=== PATIENT | female | born 1955 | race Caucasian/White ===

== ENCOUNTER 2017-04-24 14:06 | Inpatient (IN) | payer MEDICARE, OTHER ==
[~2017-04-24] VITALS: Ht 154.9 cm; Wt 108.5 kg
[~2017-04-24 14:06] MED LIST: ACET325T21 PO; ACET325T9 PO; ATORVASTATIN CA80 MG PO; BUSP5TAB PO; CARV6.252 PO; CHOL100014 PO; CLON0.5T3 PO; DIVA125C PO; DOCU-109 PO; EXEN2VIA SQ; FURO20TA3 PO; INSU100I17 SQ; INSU100V13 SQ; IPRA3AMP NEB; LEVO75TA5 PO; LIPA1CAP12 PO; LIPA1CAP4 PO; LORA0.5T PO; MAG DELAY64 MG PO; MAG30ORA2 PO; MAG355OR17 PO; MAGN2400 PO; MAGN400T3 PO; MELO15TA23 PO; METF500T4 PO; METH29OI TP; MIRT30TA3 PO; MONT10TA9 PO; NYST1POW2 TP; OMEG-33 PO; OMEP20CA9 PO; PANT40TA3 PO; PHEN100C PO; PHEN100C4 PO; PHEN50TA3 PO; POTA10TA31 PO; PREG75CA PO; QUET25TA5 PO; RISP0.5T3 PO; RISP1TAB43 PO; RISP4TAB2 PO; TIOT4MIS5 IH; UMEC1DIS IH; VENL150T PO; VENL75CA PO; VENL75TA PO
--- NOTE | 2017-04-24 14:30 | EKG ---
[address] [address] Test Date: 2017-04-24 Test Time: 14:28:51 Pat Name: YAMILET CAR Department: Room: Gender: F Manager Of Security: : [id number] Requested By: STEPHANIE REINOSO Order Number: [id number] Reading MD: Measurements Intervals [place] Rate: 100 P: 47 SD: 152 QRS: -38 QRSD: 80 T: 53 QT: 334 QTc: 434 Interpretive Statements SINUS RHYTHM ABNORMAL LEFT AXIS DEVIATION R-S TRANSITION ZONE IN V LEADS DISPLACED TO THE LEFT RI6.01 Unconfirmed report No previous ECG available for comparison
[2017-04-24 14:58] LABS: BASO # 0.1 x10^3/uL (0.0-0.2); BASO % 1 % (0-3); EOS # 0.1 x10^3/uL (0.0-0.7); EOS % 2 % (0-3); HEMATOCRIT 41.4 % (36.0-47.0); HEMOGLOBIN 13.7 g/dL (12.0-15.5); LYMPH # 3.2 x10^3/uL (1.0-4.8); LYMPH % 39 % (24-48); MEAN CORPUSCULAR HEMOGLOBIN 31 pg (25-35); MEAN CORPUSCULAR HGB CONC 33 g/dL (31-37); MEAN CORPUSCULAR VOLUME 94 fL (79-100); MONO # 0.7 x10^3/uL (0.0-1.1); MONO % 9 % (0-9); NEUT # 4.1 x10^3uL (1.8-7.7); NEUT % 50 % (31-73); PLATELET COUNT 259 x10^3/uL (140-400); RED BLOOD COUNT 4.39 x10^6/uL (3.50-5.40); RED CELL DISTRIBUTION WIDTH 14.2 % (11.5-14.5); WHITE BLOOD COUNT 8.2 x10^3/uL (4.0-11.0)
[2017-04-24 15:04] LABS: BARBITURATES NEG (NEG); BENZODIAZEPINES NEG (NEG); CANNABINOIDS NEG (NEG); COCAINE NEG (NEG); METHADONE NEG (NEG); OPIATES NEG (NEG); PHENCYCLIDINE NEG (NEG)
[2017-04-24 15:07] LABS: ALBUMIN 3.2 g/dL (3.4-5.0); ALBUMIN/GLOBULIN RATIO 0.8 (1.0-1.7); CALCIUM 8.8 mg/dL (8.5-10.1); CREATININE 0.9 mg/dL (0.6-1.0); GFR 63.4; MAGNESIUM 1.6 mg/dL (1.8-2.4); POTASSIUM 4.5 mmol/L (3.5-5.1); TOTAL BILIRUBIN 0.1 mg/dL (0.2-1.0); TOTAL PROTEIN 7.2 g/dL (6.4-8.2)
[2017-04-24 15:07] LABS: AMPHETAMINE/METHAMPHETAMINE NEG (NEG)
[2017-04-24 15:39] LABS: BILIRUBIN,URINE NEG (NEG); CLARITY,URINE CLEAR; COLOR,URINE YELLOW; GLUCOSE,URINE NEG (NEG)
[2017-04-24 15:40] LABS: BACTERIA,URINE FEW /HPF (0-FEW); HYALINE CASTS, URINE OCC /HPF; NITRITE,URINE NEG (NEG); RBC,URINE 0 /HPF (0-2); SQUAMOUS EPITHELIAL CELL,UR OCC /LPF; UROBILINOGEN,URINE 0.2 mg/dL (0.2 mg/dL)
[2017-04-24] MEDS ORDERED: clonazePAM 1 MG TABLET PO ONE (16:30)
[2017-04-24] MEDS ORDERED: IV NORMAL SALINE 1,000ML 1,000 ML IV SCH (16:37)
[2017-04-24] MEDS ORDERED: fentaNYL PF 100 MCG/2 ML VIAL IV PRN ×2 (16:45)
[2017-04-24] MEDS ORDERED: ONDANSETRON PF 4 MG/2 ML VIAL. IV PRN (16:45)
[2017-04-24] MEDS ORDERED: ACETAMINOPHEN 325 MG TABLET PO PRN (16:45)
--- NOTE | 2017-04-24 16:48 | PHYS DOC ---
Past History Past Medical History: Arthritis, Bipolar, Diabetes, Hypertension, Other Past Surgical History: Cholecystectomy, , Other Alcohol Use: None Drug Use: None Adult General Chief Complaint Chief Complaint: PSYCH EVALUATION HPI HPI Patient is a 61 year old female who presents with complaint of suicidal ideation. The patient states that she has been hearing voices that have been commanding her to cut herself. Patient has had history of similar symptoms and has been admitted at the behavioral unit here at [facility]. The patient denies any somatic symptoms at this time and has not acted on the voices at this time. Patient requested to come to [facility] as she was originally scheduled to be transferred to [facility]. Patient states she did not want to go there because I do not have a psychiatric gross. Patient is requesting help as the voices in her head are causing her significant concern. Review of Systems Review of Systems Constitutional: Denies fever or chills [] Eyes: Denies change in visual acuity, redness, or eye pain [] HENT: Denies nasal congestion or sore throat [] Respiratory: Denies cough or shortness of breath [] Cardiovascular: Denies chest pain or edema [] GI: Denies abdominal pain, nausea, vomiting, bloody stools or diarrhea [] : Denies dysuria or hematuria [] Musculoskeletal: Denies back pain or joint pain [] Integument: Denies rash or skin lesions [] Neurologic: Denies headache, focal weakness or sensory changes [] Current Medications Current Medications Current Medications Medications (Trade) Dose Ordered Sig/Micah Start Time Stop Time Status Last Admin Dose Admin Clonazepam (KlonoPIN) 0.25 mg 1X ONCE 04/24/17 16:30 04/24/17 16:31 DC 04/24/17 16:26 1 MG Allergies Allergies Allergies Coded Allergies Type Severity Reaction Last Updated Verified codeine Allergy Intermediate Rash 10/18/15 Yes Physical Exam Physical Exam Constitutional: Alert, afebrile, no acute distress. [] HENT: Normocephalic, atraumatic, bilateral external ears normal, oropharynx moist, no oral exudates, nose normal. [] Eyes: PERRLA, EOMI, conjunctiva normal, no discharge. [] Neck: Normal range of motion, no tenderness, supple, no stridor. [] Cardiovascular:Heart rate regular rhythm, no murmur [] Lungs & Thorax: Bilateral breath sounds clear to auscultation [] Abdomen: Bowel sounds normal, soft, no tenderness, no masses, no pulsatile masses. [] Skin: Warm, dry, no erythema, no rash. [] Back: No tenderness, no CVA tenderness. [] Extremities: Walking boot on right lower extremity, no cyanosis, no clubbing, no edema. [] Neurologic: Alert and oriented X 3, normal motor function, normal sensory function, no focal deficits noted. [] Psychologic: Auditory hallucinations present, Affect normal, judgement normal, mood normal. [] Current Patient Data Vital Signs Vital Signs Date Time Temp Pulse Resp B/P (MAP) Pulse Ox O2 Delivery O2 Flow Rate FiO2 04/24/17 15:59 91 20 120/81 (94) 95 Room Air 04/24/17 14:06 98.7 Lab Results Laboratory Tests Test 04/24/17 14:15 04/24/17 14:24 Urine Collection Type Unknown Urine Color Yellow Urine Clarity Clear Urine pH 5.5 Urine Specific [place] 1.025 Urine Protein 30 mg/dl (NEG-TRACE) Urine Glucose (UA) Neg mg/dL (NEG) Urine Ketones (Stick) 40 mg/dL (NEG) Urine Blood Neg (NEG) Urine Nitrite Neg (NEG) Urine Bilirubin Neg (NEG) Urine Urobilinogen Dipstick 0.2 mg/dL (0.2 mg/dL) Urine Leukocyte Esterase Trace (NEG) Urine RBC 0 /HPF (0-2) Urine WBC 5-10 /HPF (0-4) Urine Squamous Epithelial Cells Occ /LPF Urine Bacteria Few /HPF (0-FEW) Urine Hyaline Casts Occ /HPF Urine Mucus Slight /LPF Urine Opiates Screen Neg (NEG) Urine Methadone Screen Neg (NEG) Urine Barbiturates Neg (NEG) Urine Phencyclidine Screen Neg (NEG) Urine Amphetamine/Methamphetamine Neg (NEG) Urine Benzodiazepines Screen Neg (NEG) Urine Cocaine Screen Neg (NEG) Urine Cannabinoids Screen Neg (NEG) Urine Ethyl Alcohol Neg (NEG) White Blood Count 8.2 x10^3/uL (4.0-11.0) Red Blood Count 4.39 x10^6/uL (3.50-5.40) Hemoglobin 13.7 g/dL (12.0-15.5) Hematocrit 41.4 % (36.0-47.0) Mean Corpuscular Volume 94 fL (79-100) Mean Corpuscular Hemoglobin 31 pg (25-35) Mean Corpuscular Hemoglobin Concent 33 g/dL (31-37) Red Cell Distribution Width 14.2 % (11.5-14.5) Platelet Count 259 x10^3/uL (140-400) Neutrophils (%) (Auto) 50 % (31-73) Lymphocytes (%) (Auto) 39 % (24-48) Monocytes (%) (Auto) 9 % (0-9) Eosinophils (%) (Auto) 2 % (0-3) Basophils (%) (Auto) 1 % (0-3) Neutrophils # (Auto) 4.1 x10^3uL (1.8-7.7) Lymphocytes # (Auto) 3.2 x10^3/uL (1.0-4.8) Monocytes # (Auto) 0.7 x10^3/uL (0.0-1.1) Eosinophils # (Auto) 0.1 x10^3/uL (0.0-0.7) Basophils # (Auto) 0.1 x10^3/uL (0.0-0.2) Sodium Level 138 mmol/L (136-145) Potassium Level 4.5 mmol/L (3.5-5.1) Chloride Level 102 mmol/L (98-107) Carbon Dioxide Level 26 mmol/L (21-32) Anion Gap 10 (6-14) Blood Urea Nitrogen 14 mg/dL (7-20) Creatinine 0.9 mg/dL (0.6-1.0) Estimated GFR (Cockcroft-Gault) 63.4 BUN/Creatinine Ratio 16 (6-20) Glucose Level 226 mg/dL (70-99) H Calcium Level 8.8 mg/dL (8.5-10.1) Magnesium Level 1.6 mg/dL (1.8-2.4) L Total Bilirubin 0.1 mg/dL (0.2-1.0) L Aspartate Amino Transferase (AST) 8 U/L (15-37) L Alanine Aminotransferase (ALT) 18 U/L (14-59) Alkaline Phosphatase 67 U/L (46-116) Total Protein 7.2 g/dL (6.4-8.2) Albumin 3.2 g/dL (3.4-5.0) L Albumin/Globulin Ratio 0.8 (1.0-1.7) L EKG EKG Interpreted by me: Heart rate 100, sinus rhythm, normal intervals, left axis deviation, no acute ST/T-wave abnormalities present [] Radiology/Procedures Radiology/Procedures Not performed [] Course & Med Decision Making Course & Med Decision Making Pertinent Labs and Imaging studies reviewed. (See chart for details) Patient acute distress. Patient's lab testing shows no acute severe distortion of her baseline lab work. The patient was accepted for inpatient psychiatric treatment at [facility]. Dragon Disclaimer Dragon Disclaimer This chart was dictated in whole or in part using Voice Recognition software in a busy, high-work load, and often noisy Emergency Department environment. It may contain unintended and wholly unrecognized errors or omissions. Departure Departure: Impression: Primary Impression: Medical clearance for psychiatric admission Additional Impressions: Auditory hallucinations Suicidal ideation Type 2 diabetes mellitus Disposition: ADMITTED INPATIENT Admitting Physician: Other Condition: STABLE Referrals: YADIRA PALMER MD (PCP) Problem Qualifiers Additional Impressions: Type 2 diabetes mellitus Diabetes mellitus complication status: without complication Diabetes mellitus prison insulin use: with prison use Qualified Codes: E11.9 - Type 2 diabetes mellitus without complications; Z79.4 - alf (current) use of insulin STEPHANIE REINOSO MD Apr 24, 2017 16:48
[2017-04-24] MEDS ORDERED: clonazePAM 0.5 MG TABLET PO PRN (17:15)
[2017-04-24] MEDS ORDERED: LORazepam 0.5 MG TABLET PO PRN (17:15)
[2017-04-24] MEDS ORDERED: LACT1CAP6 PO (17:36)
[2017-04-24] MEDS ORDERED: CALC625T PO (17:36)
[2017-04-24] MEDS ORDERED: INSU100V13 SQ ×2 (17:36)
[2017-04-24] MEDS ORDERED: IPRA4AER INH (17:36)
[2017-04-24] MEDS ORDERED: VENL75CA PO (17:36)
[2017-04-24] MEDS ORDERED: LOPE2CAP88 PO (17:36)
[2017-04-24] MEDS ORDERED: GLIM1TAB PO (17:36)
[2017-04-24] MEDS ORDERED: CINN500C2 PO (17:36)
[2017-04-24] MEDS ORDERED: CLON0.5T3 PO (17:36)
[2017-04-24] MEDS ORDERED: ENOX40DI SQ (17:36)
[2017-04-24] MEDS ORDERED: GUAI600T47 PO (17:36)
[2017-04-24] MEDS ORDERED: POLY17PO5 PO (17:36)
[2017-04-24] MEDS ORDERED: methylPREDNISolone SOD SUCC PF 125 MG/2 ML VIAL. IV SCH (18:00)
[2017-04-24 18:04] VITALS: BP 150/89
[2017-04-24] MEDS ORDERED: INSULIN ASPART 300 UNITS/3 ML INSULN.PEN SQ ONE (19:45)
[2017-04-24] MEDS ORDERED: IPRATRPIUM/ALBUTEROL 0.5/2.5MG 3 ML NEBU. NEB SCH (20:00)
[2017-04-24] MEDS: DIVALPROEX 125 MG CAP.SPRINK PO SCH (20:06)
[2017-04-24] MEDS: clonazePAM 0.5 MG TABLET PO SCH (20:07)
[2017-04-24] MEDS: MIRTAZAPINE 15 MG TABLET PO SCH (20:08)
[2017-04-24] MEDS: busPIRone 5 MG TABLET. PO SCH (20:08)
[2017-04-24] MEDS: risperiDONE 0.5 MG TABLET. PO SCH (20:08)
[2017-04-24] MEDS: risperiDONE 2 MG TABLET. PO SCH (20:09)
[2017-04-24] MEDS: INSULIN DETEMIR 300 UNITS/3 ML INSULN.PEN. SQ SCH (21:30)
[2017-04-24 21:38] LABS: PHENY 1.5 mcg/mL (10.0-20.0)
[2017-04-24 22:10] LABS: VAL ACID 22 mcg/mL (50-100)
[2017-04-25] MEDS: ENOXAPARIN 40 MG/0.4 ML DISP.SYRIN. SQ SCH (05:36)
[2017-04-25 06:03] VITALS: BP 116/75
[2017-04-25] MEDS: busPIRone 5 MG TABLET. PO SCH ×3 (08:16→19:42)
[2017-04-25] MEDS: DIVALPROEX 125 MG CAP.SPRINK PO SCH ×2 (08:16→19:42)
[2017-04-25] MEDS: INSULIN ASPART 300 UNITS/3 ML INSULN.PEN SQ SCH ×3 (08:21→17:33)
[2017-04-25] MEDS ORDERED: VENLAFAXINE XR 37.5 MG CAP.ER.24H. PO SCH (09:00)
[2017-04-25 10:41] LABS: THYROID STIM HORMONE (TSH) 2.302 uIU/mL (0.358-3.740)
[2017-04-25] MEDS ORDERED: POLYETHYLENE GLYCOL 3350 17 GM PACKET. PO PRN (12:15)
[2017-04-25] MEDS ORDERED: DOCUSATE SODIUM 100 MG CAPSULE PO PRN (12:15)
[2017-04-25] MEDS ORDERED: NON FORMULARY ITEM (Ipratropium/Albuterol Sulfate (Combivent Respimat Inhal) 2 PUFF) INH PRN (12:15)
[2017-04-25] MEDS ORDERED: LOPERAMIDE 2 MG CAPSULE PO PRN (12:15)
[2017-04-25] MEDS: INSULIN DETEMIR 300 UNITS/3 ML INSULN.PEN. SQ SCH ×2 (12:15→20:37)
[2017-04-25] MEDS ORDERED: MAGNESIUM HYDROXIDE 2,400 MG/30 ML ORAL.SUSP. PO PRN (12:30)
[2017-04-25] MEDS ORDERED: IPRATRPIUM/ALBUTEROL 0.5/2.5MG 3 ML NEBU. NEB PRN (12:30)
[2017-04-25] MEDS ORDERED: MAG HYDROX/AL HYDROX/SIMETH 30 ML ORAL.SUSP PO PRN (12:30)
--- NOTE | 2017-04-25 14:24 | PDOC1 ---
History of Present Illness Reason for Visit: Behaviors History of Present Illness Pt sent to [facility] for eval in the SB unit due to behaviors. She resides at a group home in [place]. Pt states that a few days ago she started hearing voices and they were telling her to kill herself. She says they were telling her to take scissors and cut her wrists. She says she is still hearing the voices. She has no other complaints. Specifically denies SOA, chest pain, abd pain, diarrhea, fever, headache, dizziness, etc. Chief Complaint: PSYCH EVALUATION Allergies: Coded Allergies: codeine (Verified Allergy, Intermediate, Rash, 10/18/15) Past Medical History Cardiac: HTN, hyperipidemia [employer]: Seizure Psych: Anxiety, Bipolar Endocrine: Diabetes, Hypothyroidism, Other (Pancreatic insufficiency) Past Surgical History: Cholecystectomy, Hernia Repair Family History: DM Past Social History Smoke: No Alcohol: none Drugs: None Lives: Intermediate Review of Systems Review Of Systems Fourteen system , review of systems has been reviewed. See HPI for pertinent positives and negative responses, other mcmillan all other systems are negative, non pertinent or non contributory Allergies: Coded Allergies: codeine (Verified Allergy, Intermediate, Rash, 10/18/15) Medications Current Medications Clonazepam (KlonoPIN) 0.25 mg 1X ONCE PO Last administered on 04/24/17t 16:26 ; Start 04/24/17 at 16:30; Stop 04/24/17 at 16:31; Status DC Ondansetron HCl (Zofran) 4 mg PRN Q4HRS PRN IV NAUSEA/VOMITING; Start 04/24/17 at 16:45; Stop 04/24/17 at 17:04; Status DC Fentanyl Citrate (Fentanyl 2ml Vial) 50 mcg PRN Q1HR PRN IV PAIN; Start at 16:45; Stop 04/24/17 at 17:04; Status DC Fentanyl Citrate (Fentanyl 2ml Vial) 50 mcg PRN Q2HR PRN IV PAIN; Start at 16:45; Stop 04/25/17 at 16:44; Status UNV Sodium Chloride 1,000 ml @ 100 mls/hr Q10H IV ; Start 04/24/17 at 16:37; Stop 04/24/17 at 17:04; Status DC Acetaminophen (Tylenol) 650 mg PRN Q4HRS PRN PO FEVER; Start 04/24/17 at 16:45 ; Stop 04/24/17 at 17:04; Status DC Albuterol/ Ipratropium (Duoneb) 3 ml RTQID NEB ; Start 04/24/17 at 20:00; Stop 04/24/17 at 20:00; Status DC Methylprednisolone Sodium Succinate (SOLU-Medrol 125MG VIAL) 60 mg Q6HRS IV ; Start 04/24/17 at 18:00; Stop 04/24/17 at 18:00; Status DC Buspirone HCl (Buspar) 5 mg TID PO Last administered on 04/25/17 12:57; Start 04/24/17 at 21:00 Clonazepam (KlonoPIN) 0.25 mg PRN Q6HRS PRN PO ANXIETY; Start 04/24/17 at 17:15 Clonazepam (KlonoPIN) 0.125 mg HS PO Last administered on 04/24/17 20:07; Start 04/24/17 at 21:00 Divalproex Sodium (Depakote Sprinkles) 375 mg BID PO Last administered on 08:16; Start 04/24/17 at 21:00 Lorazepam (Ativan) 0.5 mg PRN Q2HR PRN PO ANXIETY / AGITATION Last administered on 04/25/17 08:39; Start 04/24/17 at 17:15 Mirtazapine (Remeron) 15 mg QHS PO Last administered on 04/24/17 20:08; Start 04/24/17 at 21:00 Risperidone (RisperDAL) 0.5 mg HS PO Last administered on 04/24/17 20:08; Start 04/24/17 at 21:00 Venlafaxine HCl (Effexor Xr) 37.5 mg BID PO Last administered on 04/25/17 08: 16; Start 04/25/17 at 09:00 Enoxaparin Sodium (Lovenox) 40 mg DAILY06 SQ Last administered on 04/25/17 05: 36; Start 04/25/17 at 06:00 Risperidone (RisperDAL) 4 mg HS PO Last administered on 04/24/17 20:09; Start 04/24/17 at 21:00 Insulin Aspart (NovoLOG) 10 units TIDWMEALS SQ Last administered on 04/25/17 12:13; Start 04/25/17 at 08:00 Insulin Detemir (Levemir) 10 units DAILYWLUN SQ Last administered on 04/25/17 12:15; Start 04/25/17 at 12:00 Insulin Detemir (Levemir) 35 units QHS SQ Last administered on 04/24/17 21:30 ; Start 04/24/17 at 21:00 Insulin Aspart (NovoLOG) 5 units 1X ONCE SQ Last administered on 04/24/17 21: 29; Start 04/24/17 at 19:45; Stop 04/24/17 at 19:46; Status DC Acetaminophen (Tylenol) 650 mg PRN Q4HRS PRN PO PAIN / TEMP; Start 04/25/17 at 12:15 Calcium Polycarbophil (Fibercon) 1,250 mg DAILY PO ; Start 04/26/17 at 09:00 Docusate Sodium (Colace) 100 mg PRN DAILY PRN PO CONSTIPATION; Start 04/25/17 at 12:15 Enoxaparin Sodium (Lovenox) 40 mg DAILY06 SQ ; Start 04/26/17 at 06:00; Status Cancel Guaifenesin (Mucinex Er) 600 mg PRN Q8HRS PRN PO COUGH; Start 04/25/17 at 12:15 Levothyroxine Sodium (Synthroid) 75 mcg DAILY06 PO ; Start 04/26/17 at 06:00 Loperamide HCl (Imodium) 2 mg QIDPRN PRN PO DIARRHEA; Start 04/25/17 at 12:15 Magnesium Oxide (Magnesium Oxide) 400 mg TIDWMEALS PO ; Start 04/25/17 at 17:00 Metformin HCl (Glucophage) 1,000 mg BIDWMEALS PO ; Start 04/25/17 at 17:00 Phenytoin Sodium (Dilantin) 200 mg QHS PO ; Start 04/25/17 at 21:00; Status UNV Polyethylene Glycol (miraLAX) 17 gm PRN DAILY PRN PO CONSTIPATION; Start at 12:15 Potassium Chloride (Klor-Con) 10 meq 3X/WEEK PO ; Start 04/27/17 at 09:00 Pregabalin (Lyrica) 75 mg QHS PO ; Start 04/25/17 at 21:00 Atorvastatin Calcium (Lipitor) 80 mg QHS PO ; Start 04/25/17 at 21:00 Vitamin D (Vitamin D3) 2,000 unit DAILY PO ; Start 04/26/17 at 09:00 Non-Formulary Medication 2 puff PRN Q4HRS PRN INH SHORTNESS OF BREATH; Start at 12:15; Status UNV Lactobacillus Acidophilus (Bacid, Lisy-Bid) 1 tab DAILY PO ; Start 04/26/17 at 09:00 Al Hydroxide/Mg Hydroxide (Mylanta Plus Xs) 15 ml PRN AFTMEALHC PRN PO DYSPEPSIA; Start 04/25/17 at 12:30 Magnesium Hydroxide (Milk Of Magnesia) 2,400 mg PRN QHS PRN PO CONSTIPATION; Start 04/25/17 at 12:30 Phenytoin Sodium (Dilantin) 200 mg QHS PO ; Start 04/25/17 at 21:00 Levothyroxine Sodium (Synthroid) 75 mcg 1X ONCE PO ; Start 04/25/17 at 16:00; Stop 04/25/17 at 16:01 Albuterol/ Ipratropium (Duoneb) 3 ml PRN Q4HRS PRN NEB SHORTNESS OF BREATH; Start 04/25/17 at 12:30 Active Scripts Active Reported Miralax (Polyethylene Glycol 3350) 17 Gm Powd.pack 17 Gm PO PRN DAILY PRN Combivent Respimat Inhal (Ipratropium/Albuterol Sulfate) 4 Gm Aer.w.adap 2 Puff INH PRN Q4HRS PRN Mucinex (Guaifenesin) 600 Mg Tablet.er 600 Mg PO PRN Q8HRS PRN Imodium A-D (Loperamide HCl) 2 Mg Capsule 2 Mg PO PRN PRN Effexor Xr (Venlafaxine Hcl) 75 Mg Cap.er.24h 75 Mg PO DAILY Amaryl (Glimepiride) 1 Mg Tablet 1 Mg PO DAILY Cinnamon (Cinnamon Bark) 500 Mg Capsule 1,000 Mg PO QIDACHS Fibercon (Calcium Polycarbophil) 625 Mg Tablet 1,250 Mg PO DAILY Clonazepam 0.5 Mg Tablet 0.25 Tab PO HS Probiotic (Lactobacillus Acidophilus) 1 Each Capsule 1 Each PO DAILY Lovenox (Enoxaparin Sodium) 40 Mg/0.4 Ml Disp.syrin 40 Mg SQ DAILY06 Levemir (Insulin Detemir) 100 Unit/1 Ml Vial 35 Unit SQ HS Levemir (Insulin Detemir) 100 Unit/1 Ml Vial 10 Unit SQ DAILYWLUN Magnesium Oxide 400 Mg Tablet 400 Mg PO TIDWMEALS Advanced Antacid Liquid (Mag Hydrox/Al Hydrox/Simeth) 355 Ml Oral.susp 15 Ml PO PRN AFTMEALHC PRN Lorazepam 0.5 Mg Tablet 0.5 Mg PO PRN Q2HR PRN Colace (Docusate Sodium) 100 Mg Capsule 100 Mg PO PRN DAILY PRN Depakote Sprinkle (Divalproex Sodium) 125 Mg Cap.sprink 375 Mg PO BID Risperidone 0.5 Mg Tablet 4.5 Mg PO HS give with 4 mg dose to make 4.5 mg dose Novolog Flexpen (Insulin Aspart) 100 Unit/1 Ml Insuln.pen 10 Unit SQ TIDWMEALS Sliding Scale: Blood Glucose: < 70 follow Hypoglycemia protocol 70-150 = 0 units if Eating, 0 Units if not eating 151-200 = 2 Units if Eating, 0 Units if not eating 201-250 = 3 Units if Eating, 0 Units if not eating 251-300 = 4 Units if Eating, 2 Units if not eating 301-350 = 5 Units if eating, 3 Units if not eating > or = to 351 Call provider for additional orders Buspirone Hcl 5 Mg Tablet 5 Mg PO TID Do not administer with grapefruit juice Phenytoin 50 Mg Tab.chew 200 Mg PO QHS Administer with HS dose of 300mg for total HS dose of 350mg Milk Of Magnesia (Magnesium Hydroxide) 2,400 Mg/10 Ml Oral.susp 2,400 Mg PO PRN QHS PRN Tylenol (Acetaminophen) 325 Mg Tablet 650 Mg PO PRN Q4HRS PRN Max Acetaminophen dose is 4000mg in 24 hours from all sources for adults Vitamin D3 (Cholecalciferol (Vitamin D3)) 1,000 Unit Capsule 2,000 Unit PO DAILY Levothyroxine Sodium 75 Mcg Tablet 75 Mcg PO DAILY06 Administer on an empty stomach: 1 hour before or 2 hours after a meal Mirtazapine 30 Mg Tablet 15 Mg PO QHS Clonazepam 0.5 Mg Tablet 0.25 Mg PO PRN Q6HRS PRN Lyrica (Pregabalin) 75 Mg Capsule 75 Mg PO QHS Metformin Hcl 500 Mg Tablet 1,000 Mg PO BIDWMEALS Give with meals Potassium Chloride 10 Meq Tab.er.prt 10 Meq PO 3X/WEEK On Thursday and Thursday Atorvastatin Calcium 80 Mg Tablet 80 Mg PO QHS [place] 3 1,000 Mg Softgel ([place]-3 Fatty Acids/Fish Oil) 1 Each Capsule 1,000 Mg PO DAILY Exam Vital Signs Vital Signs Date Time Temp Pulse Resp B/P (MAP) Pulse Ox O2 Delivery O2 Flow Rate FiO2 04/25/17 06:03 97.9 77 20 116/75 (89) 97 04/24/17 18:04 Room Air General Appearance: Alert, Oriented X3, Cooperative, No acute distress HEENT: Atraumatic, PERRLA, EOMI, Mucous membr. moist/pink, Other (Neck w/ normal ROM, no JVD, no LAD, no thyromegaly) Respiratory: Clear to auscultation, Normal air movement Heart: Regular rate, Normal S1, Normal S2, No murmurs Abdominal: Normal bowel sounds, Soft, No tenderness, No hepatospenomegaly, No masses Extremities: No edema, Normal pulses, No tenderness/swelling Skin: No rashes, No breakdown Neuro: Normal speech, Strength at 5/5 X4 ext, Normal tone, Sensation intact, Cranial nerves 3-12 NL, Reflexes 2+ Psych/Mental Status: Other (Pt appropriate, no aggression noted) Assessment/Plan Assessment/Plan 1. Bipolar w/ acute suicidal ideation: Per Dr. Cadena. 2. DM2: Continue insulin, accuchecks QID. Monitor for hypoglycemia. 3. HTN: No change in tx. Monitor BP. 4. DVT proph: Lovenox. 5. Hypothyroidism: Continue Levothyroxine. TSH ok. COURSE Allergies Coded Allergies Type Severity Reaction Last Updated Verified codeine Allergy Intermediate Rash 10/18/15 Yes Laboratory Tests Test 04/24/17 17:15 04/24/17 17:27 04/24/17 19:19 04/24/17 21:20 Phenytoin (Dilantin) Level 1.5 mcg/mL (10.0-20.0) Phenytoin Last Dose Date 04/27/17 Phenytoin Last Dose Time 0800 Glucose (Fingerstick) 213 mg/dL (70-99) 391 mg/dL (70-99) Valproic Acid (Depakene) Level 22 mcg/mL (50-100) Valproic Acid Last Dose Date 04/24/17 Valproic Acid Last Dose Time 0800 Test 04/25/17 07:21 04/25/17 11:26 Glucose (Fingerstick) 177 mg/dL (70-99) 243 mg/dL (70-99) Current Medications Medications (Trade) Dose Ordered Sig/Micah Route PRN Reason Start Time Stop Time Status Last Admin Dose Admin Clonazepam (KlonoPIN) 0.25 mg 1X ONCE PO 04/24/17 16:30 04/24/17 16:31 DC 04/24/17 16:26 Ondansetron HCl (Zofran) 4 mg PRN Q4HRS PRN IV NAUSEA/VOMITING 04/24/17 16:45 04/24/17 17:04 DC Fentanyl Citrate (Fentanyl 2ml Vial) 50 mcg PRN Q1HR PRN IV PAIN 04/24/17 16:45 04/24/17 17:04 DC Fentanyl Citrate (Fentanyl 2ml Vial) 50 mcg PRN Q2HR PRN IV PAIN 04/24/17 16:45 04/25/17 16:44 UNV Sodium Chloride 1,000 ml @ 100 mls/hr Q10H IV 04/24/17 16:37 04/24/17 17:04 DC Acetaminophen (Tylenol) 650 mg PRN Q4HRS PRN PO FEVER 04/24/17 16:45 04/24/17 17:04 DC Albuterol/ Ipratropium (Duoneb) 3 ml RTQID NEB 04/24/17 20:00 04/24/17 20:00 DC Methylprednisolone Sodium Succinate (SOLU-Medrol 125MG VIAL) 60 mg Q6HRS IV 04/24/17 18:00 04/24/17 18:00 DC Buspirone HCl (Buspar) 5 mg TID PO 04/24/17 21:00 04/25/17 12:57 Clonazepam (KlonoPIN) 0.25 mg PRN Q6HRS PRN PO ANXIETY 04/24/17 17:15 Clonazepam (KlonoPIN) 0.125 mg HS PO 04/24/17 21:00 04/24/17 20:07 Divalproex Sodium (Depakote Sprinkles) 375 mg BID PO 04/24/17 21:00 04/25/17 08:16 Lorazepam (Ativan) 0.5 mg PRN Q2HR PRN PO ANXIETY / AGITATION 04/24/17 17:15 04/25/17 08:39 Mirtazapine (Remeron) 15 mg QHS PO 04/24/17 21:00 04/24/17 20:08 Risperidone (RisperDAL) 0.5 mg HS PO 04/24/17 21:00 04/24/17 20:08 Venlafaxine HCl (Effexor Xr) 37.5 mg BID PO 04/25/17 09:00 04/25/17 08:16 Enoxaparin Sodium (Lovenox) 40 mg DAILY06 SQ 04/25/17 06:00 04/25/17 05:36 Risperidone (RisperDAL) 4 mg HS PO 04/24/17 21:00 04/24/17 20:09 Insulin Aspart (NovoLOG) 10 units TIDWMEALS SQ 04/25/17 08:00 04/25/17 12:13 Insulin Detemir (Levemir) 10 units DAILYWLUN SQ 04/25/17 12:00 04/25/17 12:15 Insulin Detemir (Levemir) 35 units QHS SQ 04/24/17 21:00 04/24/17 21:30 Insulin Aspart (NovoLOG) 5 units 1X ONCE SQ 04/24/17 19:45 04/24/17 19:46 DC 04/24/17 21:29 Acetaminophen (Tylenol) 650 mg PRN Q4HRS PRN PO PAIN / TEMP 04/25/17 12:15 Calcium Polycarbophil (Fibercon) 1,250 mg DAILY PO 04/26/17 09:00 Docusate Sodium (Colace) 100 mg PRN DAILY PRN PO CONSTIPATION 04/25/17 12:15 Enoxaparin Sodium (Lovenox) 40 mg DAILY06 SQ 04/26/17 06:00 Cancel Guaifenesin (Mucinex Er) 600 mg PRN Q8HRS PRN PO COUGH 04/25/17 12:15 Levothyroxine Sodium (Synthroid) 75 mcg DAILY06 PO 04/26/17 06:00 Loperamide HCl (Imodium) 2 mg QIDPRN PRN PO DIARRHEA 04/25/17 12:15 Magnesium Oxide (Magnesium Oxide) 400 mg TIDWMEALS PO 04/25/17 17:00 Metformin HCl (Glucophage) 1,000 mg BIDWMEALS PO 04/25/17 17:00 Phenytoin Sodium (Dilantin) 200 mg QHS PO 04/25/17 21:00 UNV Polyethylene Glycol (miraLAX) 17 gm PRN DAILY PRN PO CONSTIPATION 04/25/17 12:15 Potassium Chloride (Klor-Con) 10 meq 3X/WEEK PO 04/27/17 09:00 Pregabalin (Lyrica) 75 mg QHS PO 04/25/17 21:00 Atorvastatin Calcium (Lipitor) 80 mg QHS PO 04/25/17 21:00 Vitamin D (Vitamin D3) 2,000 unit DAILY PO 04/26/17 09:00 Non-Formulary Medication 2 puff PRN Q4HRS PRN INH SHORTNESS OF BREATH 04/25/17 12:15 UNV Lactobacillus Acidophilus (Bacid, Lisy-Bid) 1 tab DAILY PO 04/26/17 09:00 Al Hydroxide/Mg Hydroxide (Mylanta Plus Xs) 15 ml PRN AFTMEALHC PRN PO DYSPEPSIA 04/25/17 12:30 Magnesium Hydroxide (Milk Of Magnesia) 2,400 mg PRN QHS PRN PO CONSTIPATION 04/25/17 12:30 Phenytoin Sodium (Dilantin) 200 mg QHS PO 04/25/17 21:00 Levothyroxine Sodium (Synthroid) 75 mcg 1X ONCE PO 04/25/17 16:00 04/25/17 16:01 Albuterol/ Ipratropium (Duoneb) 3 ml PRN Q4HRS PRN NEB SHORTNESS OF BREATH 04/25/17 12:30 I & O 04/25/17 00:00 Intake Total 240 ml Balance 240 ml Vital Signs Date Time Temp Pulse Resp B/P (MAP) Pulse Ox O2 Delivery O2 Flow Rate FiO2 04/25/17 06:03 97.9 77 20 116/75 (89) 97 04/24/17 18:04 Room Air ALINA RICHMOND MD Apr 25, 2017 14:24
[2017-04-25] MEDS ORDERED: LEVOTHYROXINE 75 MCG TABLET PO ONE (16:00)
[2017-04-25 16:09] VITALS: BP 136/78
[2017-04-25] MEDS: MAGNESIUM OXIDE 400 MG TABLET PO SCH (17:33)
[2017-04-25] MEDS: metFORMIN 500 MG TABLET PO SCH (17:34)
[2017-04-25] MEDS ORDERED: traZODone 50 MG TABLET. PO PRN (19:00)
[2017-04-25] MEDS: risperiDONE 2 MG TABLET. PO SCH (19:41)
[2017-04-25] MEDS: risperiDONE 0.5 MG TABLET. PO SCH (19:41)
[2017-04-25] MEDS: MIRTAZAPINE 15 MG TABLET PO SCH (19:41)
[2017-04-25 19:53] LABS: T3 TOTAL 95 ng/dL (71-180); THYROXINE 6.7 ug/dL (4.5-12.0)
[2017-04-25 20:06] LABS: HEMOGLOBIN A1C 7.8 % (4.8-5.6)
[2017-04-25] MEDS: ATORVASTATIN CALCIUM 20 MG TABLET PO SCH (20:21)
[2017-04-25] MEDS: PREGABALIN 75 MG CAPSULE PO SCH (20:22)
[2017-04-25] MEDS: traZODone 50 MG TABLET. PO SCH (20:22)
[2017-04-25] MEDS: clonazePAM 0.5 MG TABLET PO SCH (20:23)
[2017-04-25] MEDS: PHENYTOIN SODIUM EXTENDED 100 MG CAPSULE PO SCH (20:24)
[2017-04-25] MEDS ORDERED: PHENYTOIN 50 MG TAB.CHEW PO SCH (21:00)
[2017-04-26] MEDS: LEVOTHYROXINE 75 MCG TABLET PO SCH (05:10)
[2017-04-26] MEDS: ENOXAPARIN 40 MG/0.4 ML DISP.SYRIN. SQ SCH (05:12)
[2017-04-26] MEDS ORDERED: ENOXAPARIN 40 MG/0.4 ML DISP.SYRIN. SQ SCH (06:00)
[2017-04-26 06:39] VITALS: BP 122/60
[2017-04-26] MEDS: CHOLECALCIFEROL (VITAMIN D3) 1,000 UNIT TABLET PO SCH (07:40)
[2017-04-26] MEDS: LACTOBACILLUS ACIDOPH & BULGAR 1 TABLET. PO SCH (07:40)
[2017-04-26] MEDS: DIVALPROEX 125 MG CAP.SPRINK PO SCH ×2 (07:41→19:33)
[2017-04-26] MEDS: busPIRone 5 MG TABLET. PO SCH ×3 (07:41→19:26)
[2017-04-26] MEDS: MAGNESIUM OXIDE 400 MG TABLET PO SCH ×3 (07:41→18:01)
[2017-04-26] MEDS: DULoxetine HCL 30 MG CAPSULE.DR PO SCH (07:41)
[2017-04-26] MEDS: CALCIUM POLYCARBOPHIL 625 MG TABLET PO SCH (07:41)
[2017-04-26] MEDS: metFORMIN 500 MG TABLET PO SCH ×2 (07:41→18:01)
[2017-04-26] MEDS: INSULIN ASPART 300 UNITS/3 ML INSULN.PEN SQ SCH ×3 (07:42→18:01)
[2017-04-26 10:38] LABS: VAL ACID 41 mcg/mL (50-100)
[2017-04-26] MEDS: INSULIN DETEMIR 300 UNITS/3 ML INSULN.PEN. SQ SCH ×2 (13:28→19:34)
[2017-04-26] MEDS: ACETAMINOPHEN 325 MG TABLET PO PRN (15:16)
[2017-04-26 15:57] VITALS: BP 123/79
[2017-04-26] MEDS: traZODone 50 MG TABLET. PO SCH (19:27)
[2017-04-26] MEDS: PHENYTOIN SODIUM EXTENDED 100 MG CAPSULE PO SCH (19:27)
[2017-04-26] MEDS: ATORVASTATIN CALCIUM 20 MG TABLET PO SCH (19:29)
[2017-04-26] MEDS: PREGABALIN 75 MG CAPSULE PO SCH (19:29)
[2017-04-26] MEDS: clonazePAM 0.5 MG TABLET PO SCH (19:29)
[2017-04-26] MEDS: risperiDONE 0.5 MG TABLET. PO SCH (19:30)
[2017-04-26] MEDS: MIRTAZAPINE 15 MG TABLET PO SCH (19:30)
[2017-04-26] MEDS: risperiDONE 2 MG TABLET. PO SCH (19:30)
[2017-04-27] MEDS: LEVOTHYROXINE 75 MCG TABLET PO SCH (05:50)
[2017-04-27] MEDS: ENOXAPARIN 40 MG/0.4 ML DISP.SYRIN. SQ SCH (05:51)
[2017-04-27 06:07] VITALS: BP 130/74
[2017-04-27] MEDS: busPIRone 5 MG TABLET. PO SCH ×3 (08:01→20:22)
[2017-04-27] MEDS: LACTOBACILLUS ACIDOPH & BULGAR 1 TABLET. PO SCH (08:01)
[2017-04-27] MEDS: DIVALPROEX 125 MG CAP.SPRINK PO SCH ×2 (08:01→20:24)
[2017-04-27] MEDS: CALCIUM POLYCARBOPHIL 625 MG TABLET PO SCH (08:01)
[2017-04-27] MEDS: metFORMIN 500 MG TABLET PO SCH ×2 (08:02→17:14)
[2017-04-27] MEDS: DULoxetine HCL 30 MG CAPSULE.DR PO SCH (08:02)
[2017-04-27] MEDS: MAGNESIUM OXIDE 400 MG TABLET PO SCH ×3 (08:02→17:14)
[2017-04-27] MEDS: CHOLECALCIFEROL (VITAMIN D3) 1,000 UNIT TABLET PO SCH (08:02)
[2017-04-27] MEDS: POTASSIUM CHLORIDE 10 MEQ TABLET.ER. PO SCH (08:04)
[2017-04-27] MEDS: INSULIN ASPART 300 UNITS/3 ML INSULN.PEN SQ SCH ×3 (08:04→17:17)
[2017-04-27] MEDS: ACETAMINOPHEN 325 MG TABLET PO PRN (09:33)
[2017-04-27] MEDS: INSULIN DETEMIR 300 UNITS/3 ML INSULN.PEN. SQ SCH ×2 (12:41→20:29)
[2017-04-27 15:29] VITALS: BP 125/76
[2017-04-27] MEDS: risperiDONE 2 MG TABLET. PO SCH (20:22)
[2017-04-27] MEDS: ATORVASTATIN CALCIUM 20 MG TABLET PO SCH (20:22)
[2017-04-27] MEDS: MIRTAZAPINE 15 MG TABLET PO SCH (20:22)
[2017-04-27] MEDS: risperiDONE 0.5 MG TABLET. PO SCH (20:23)
[2017-04-27] MEDS: traZODone 50 MG TABLET. PO SCH (20:24)
[2017-04-27] MEDS: PREGABALIN 75 MG CAPSULE PO SCH (20:27)
[2017-04-27] MEDS: clonazePAM 0.5 MG TABLET PO SCH (20:28)
[2017-04-27] MEDS: PHENYTOIN SODIUM EXTENDED 100 MG CAPSULE PO SCH (20:28)
[2017-04-28] MEDS: LEVOTHYROXINE 75 MCG TABLET PO SCH (05:33)
[2017-04-28] MEDS: ENOXAPARIN 40 MG/0.4 ML DISP.SYRIN. SQ SCH (05:33)
[2017-04-28 05:41] VITALS: BP 126/77
[2017-04-28] MEDS: LACTOBACILLUS ACIDOPH & BULGAR 1 TABLET. PO SCH (07:49)
[2017-04-28] MEDS: DIVALPROEX 125 MG CAP.SPRINK PO SCH ×2 (07:49→19:14)
[2017-04-28] MEDS: busPIRone 5 MG TABLET. PO SCH ×3 (07:49→19:14)
[2017-04-28] MEDS: DULoxetine HCL 30 MG CAPSULE.DR PO SCH (07:49)
[2017-04-28] MEDS: MAGNESIUM OXIDE 400 MG TABLET PO SCH ×3 (07:49→17:17)
[2017-04-28] MEDS: CALCIUM POLYCARBOPHIL 625 MG TABLET PO SCH (07:50)
[2017-04-28] MEDS: metFORMIN 500 MG TABLET PO SCH ×2 (07:50→17:17)
[2017-04-28] MEDS: CHOLECALCIFEROL (VITAMIN D3) 1,000 UNIT TABLET PO SCH (07:51)
[2017-04-28] MEDS: INSULIN ASPART 300 UNITS/3 ML INSULN.PEN SQ SCH ×3 (07:55→17:20)
[2017-04-28] MEDS: INSULIN DETEMIR 300 UNITS/3 ML INSULN.PEN. SQ SCH ×2 (12:23→19:23)
[2017-04-28 16:03] VITALS: BP 145/78
[2017-04-28] MEDS: traZODone 50 MG TABLET. PO SCH (19:15)
[2017-04-28] MEDS: PHENYTOIN SODIUM EXTENDED 100 MG CAPSULE PO SCH (19:15)
[2017-04-28] MEDS: MIRTAZAPINE 15 MG TABLET PO SCH (19:16)
[2017-04-28] MEDS: ATORVASTATIN CALCIUM 20 MG TABLET PO SCH (19:16)
[2017-04-28] MEDS: PREGABALIN 75 MG CAPSULE PO SCH (19:16)
[2017-04-28] MEDS: risperiDONE 0.5 MG TABLET. PO SCH (19:17)
[2017-04-28] MEDS: risperiDONE 2 MG TABLET. PO SCH (19:22)
[2017-04-28] MEDS: clonazePAM 0.5 MG TABLET PO SCH (19:23)
[2017-04-29 05:26] VITALS: BP 132/78
[2017-04-29] MEDS: LEVOTHYROXINE 75 MCG TABLET PO SCH (05:36)
[2017-04-29] MEDS: ENOXAPARIN 40 MG/0.4 ML DISP.SYRIN. SQ SCH (05:37)
[2017-04-29] MEDS: CALCIUM POLYCARBOPHIL 625 MG TABLET PO SCH (07:53)
[2017-04-29] MEDS: metFORMIN 500 MG TABLET PO SCH ×2 (07:53→17:04)
[2017-04-29] MEDS: DIVALPROEX 125 MG CAP.SPRINK PO SCH ×2 (07:53→20:11)
[2017-04-29] MEDS: busPIRone 5 MG TABLET. PO SCH ×3 (07:53→20:08)
[2017-04-29] MEDS: CHOLECALCIFEROL (VITAMIN D3) 1,000 UNIT TABLET PO SCH (07:54)
[2017-04-29] MEDS: LACTOBACILLUS ACIDOPH & BULGAR 1 TABLET. PO SCH (07:54)
[2017-04-29] MEDS: MAGNESIUM OXIDE 400 MG TABLET PO SCH ×3 (07:54→17:04)
[2017-04-29] MEDS: INSULIN ASPART 300 UNITS/3 ML INSULN.PEN SQ SCH ×3 (07:55→17:18)
[2017-04-29] MEDS: POTASSIUM CHLORIDE 10 MEQ TABLET.ER. PO SCH (07:56)
[2017-04-29] MEDS: DULoxetine HCL 60 MG CAPSULE.DR PO SCH (07:57)
[2017-04-29 08:59] LABS: BASO % 1 % (0-3); EOS # 0.1 x10^3/uL (0.0-0.7); EOS % 3 % (0-3); HEMATOCRIT 39.6 % (36.0-47.0); HEMOGLOBIN 13.1 g/dL (12.0-15.5); LYMPH # 2.6 x10^3/uL (1.0-4.8); LYMPH % 44 % (24-48); MEAN CORPUSCULAR HEMOGLOBIN 31 pg (25-35); MEAN CORPUSCULAR HGB CONC 33 g/dL (31-37); MEAN CORPUSCULAR VOLUME 94 fL (79-100); MONO # 0.5 x10^3/uL (0.0-1.1); MONO % 9 % (0-9); NEUT # 2.6 x10^3uL (1.8-7.7); NEUT % 44 % (31-73); PLATELET COUNT 237 x10^3/uL (140-400); RED BLOOD COUNT 4.23 x10^6/uL (3.50-5.40); WHITE BLOOD COUNT 5.9 x10^3/uL (4.0-11.0)
[2017-04-29 09:49] LABS: ALBUMIN/GLOBULIN RATIO 0.8 (1.0-1.7); ALK PHOS 59 U/L (46-116); ALT (SGPT) 18 U/L (14-59); ANION GAP 7 (6-14); AST (SGOT) 10 U/L (15-37); BLOOD UREA NITROGEN 12 mg/dL (7-20); BUN/CREATININE RATIO 13 (6-20); CALCIUM 8.6 mg/dL (8.5-10.1); CARBON DIOXIDE 32 mmol/L (21-32); CHLORIDE 103 mmol/L (98-107); CREATININE 0.9 mg/dL (0.6-1.0); GFR 63.4; GLUCOSE 248 mg/dL (70-99); POTASSIUM 4.4 mmol/L (3.5-5.1); SODIUM 142 mmol/L (136-145); TOTAL BILIRUBIN 0.3 mg/dL (0.2-1.0); TOTAL PROTEIN 6.7 g/dL (6.4-8.2); VAL ACID 35 mcg/mL (50-100)
[2017-04-29] MEDS: INSULIN DETEMIR 300 UNITS/3 ML INSULN.PEN. SQ SCH ×2 (12:24→20:26)
[2017-04-29 15:57] VITALS: BP 110/76
[2017-04-29] MEDS: risperiDONE 2 MG TABLET. PO SCH (20:08)
[2017-04-29] MEDS: risperiDONE 0.5 MG TABLET. PO SCH (20:08)
[2017-04-29] MEDS: traZODone 50 MG TABLET. PO SCH (20:09)
[2017-04-29] MEDS: PHENYTOIN SODIUM EXTENDED 100 MG CAPSULE PO SCH (20:10)
[2017-04-29] MEDS: ATORVASTATIN CALCIUM 20 MG TABLET PO SCH (20:12)
[2017-04-29] MEDS: MIRTAZAPINE 15 MG TABLET PO SCH (20:12)
[2017-04-29] MEDS: clonazePAM 0.5 MG TABLET PO SCH (20:13)
[2017-04-29] MEDS: PREGABALIN 75 MG CAPSULE PO SCH (20:17)
--- NOTE | 2017-04-29 20:17 | PDOC ---
Exam Jonathan Demential Exam: Jonathan Note: Please also refer to the separate dictated note~for this date of service dictated separately.~Patient seen individually. Discussed the patient with Nursing staff reviewed the chart.~Reviewed interim history and current functioning. Reviewed vital signs,~Labs/ Radiology~and current medications noted below. Continue current treatment with the changes noted in the dictated addendum note Patient seen individually the evening of 04/29. Per nursing report overall patient as being fairly calm. She spends time working on her painting and drawing projects to keep her mind active and busy. No clear psychotic symptoms suicidal ideation noted. She has had some wheezing in her left lung did not will defer to Dr. Barrios. Review of systems: No CV GI pulmonary eye ENT system symptoms on review. I met with her in her room. Mental status examination: Patient is reasonably oriented. Speech is coherent thought processes are goal-directed mood is better. Affect is mood congruent. On careful individual assessment no psychotic symptoms are noted. No suicidal or homicidal ideation. She remains a little anxious and restless at times but fairly appropriate. We processed discharge plans and she is agreeable to this. Impression: Bipolar 1 disorder mixed with psychotic features in partial remission Plan: Continue current psychotropics noted below. But just further as clinically indicated Assessment: Vital Signs: Vital Signs Date Time Temp Pulse Resp B/P (MAP) Pulse Ox O2 Delivery O2 Flow Rate FiO2 04/29/17 15:57 97.8 89 16 110/76 (87) 95 04/27/17 15:29 Room Air I&O Intake and Output 04/29/17 07:00 Intake Total 1560 ml Balance 1560 ml Intake Oral 1560 ml # Bowel Movements 1 Labs: Laboratory Tests Test 04/29/17 07:35 04/29/17 08:48 04/29/17 11:52 04/29/17 17:00 Glucose (Fingerstick) 143 mg/dL (70-99) H 146 mg/dL (70-99) H 173 mg/dL (70-99) H White Blood Count 5.9 x10^3/uL (4.0-11.0) Red Blood Count 4.23 x10^6/uL (3.50-5.40) Hemoglobin 13.1 g/dL (12.0-15.5) Hematocrit 39.6 % (36.0-47.0) Mean Corpuscular Volume 94 fL (79-100) Mean Corpuscular Hemoglobin 31 pg (25-35) Mean Corpuscular Hemoglobin Concent 33 g/dL (31-37) Red Cell Distribution Width 14.0 % (11.5-14.5) Platelet Count 237 x10^3/uL (140-400) Neutrophils (%) (Auto) 44 % (31-73) Lymphocytes (%) (Auto) 44 % (24-48) Monocytes (%) (Auto) 9 % (0-9) Eosinophils (%) (Auto) 3 % (0-3) Basophils (%) (Auto) 1 % (0-3) Neutrophils # (Auto) 2.6 x10^3uL (1.8-7.7) Lymphocytes # (Auto) 2.6 x10^3/uL (1.0-4.8) Monocytes # (Auto) 0.5 x10^3/uL (0.0-1.1) Eosinophils # (Auto) 0.1 x10^3/uL (0.0-0.7) Basophils # (Auto) 0.0 x10^3/uL (0.0-0.2) Sodium Level 142 mmol/L (136-145) Potassium Level 4.4 mmol/L (3.5-5.1) Chloride Level 103 mmol/L (98-107) Carbon Dioxide Level 32 mmol/L (21-32) Anion Gap 7 (6-14) Blood Urea Nitrogen 12 mg/dL (7-20) Creatinine 0.9 mg/dL (0.6-1.0) Estimated GFR (Cockcroft-Gault) 63.4 BUN/Creatinine Ratio 13 (6-20) Glucose Level 248 mg/dL (70-99) H Calcium Level 8.6 mg/dL (8.5-10.1) Total Bilirubin 0.3 mg/dL (0.2-1.0) Aspartate Amino Transferase (AST) 10 U/L (15-37) L Alanine Aminotransferase (ALT) 18 U/L (14-59) Alkaline Phosphatase 59 U/L (46-116) Total Protein 6.7 g/dL (6.4-8.2) Albumin 3.0 g/dL (3.4-5.0) L Albumin/Globulin Ratio 0.8 (1.0-1.7) L Valproic Acid Level 35 mcg/mL (50-100) L Valproic Acid Last Dose Date 04/28/17 Valproic Acid Last Dose Time 2100 Test 04/29/17 19:20 Glucose (Fingerstick) 242 mg/dL (70-99) H Current Medications: Meds: Current Medications Clonazepam (KlonoPIN) 0.25 mg 1X ONCE PO Last administered on 04/24/17 16:26 ; Start 04/24/17 at 16:30; Stop 04/24/17 at 16:31; Status DC Ondansetron HCl (Zofran) 4 mg PRN Q4HRS PRN IV NAUSEA/VOMITING; Start 04/24/17 at 16:45; Stop 04/24/17 at 17:04; Status DC Fentanyl Citrate (Fentanyl 2ml Vial) 50 mcg PRN Q1HR PRN IV PAIN; Start at 16:45; Stop 04/24/17 at 17:04; Status DC Fentanyl Citrate (Fentanyl 2ml Vial) 50 mcg PRN Q2HR PRN IV PAIN; Start at 16:45; Stop 04/25/17 at 16:44; Status UNV Sodium Chloride 1,000 ml @ 100 mls/hr Q10H IV ; Start 04/24/17 at 16:37; Stop 04/24/17 at 17:04; Status DC Acetaminophen (Tylenol) 650 mg PRN Q4HRS PRN PO FEVER; Start 04/24/17 at 16:45 ; Stop 04/24/17 at 17:04; Status DC Albuterol/ Ipratropium (Duoneb) 3 ml RTQID NEB ; Start 04/24/17 at 20:00; Stop 04/24/17 at 20:00; Status DC Methylprednisolone Sodium Succinate (SOLU-Medrol 125MG VIAL) 60 mg Q6HRS IV ; Start 04/24/17 at 18:00; Stop 04/24/17 at 18:00; Status DC Buspirone HCl (Buspar) 5 mg TID PO Last administered on 04/29/17 13:58; Start 04/24/17 at 21:00 Clonazepam (KlonoPIN) 0.25 mg PRN Q6HRS PRN PO ANXIETY; Start 04/24/17 at 17:15 Clonazepam (KlonoPIN) 0.125 mg HS PO Last administered on 04/28/17 19:23; Start 04/24/17 at 21:00 Divalproex Sodium (Depakote Sprinkles) 375 mg BID PO Last administered on 07:41; Start 04/24/17 at 21:00; Stop 04/26/17 at 19:29; Status DC Lorazepam (Ativan) 0.5 mg PRN Q2HR PRN PO ANXIETY / AGITATION Last administered on 04/25/17 08:39; Start 04/24/17 at 17:15 Mirtazapine (Remeron) 15 mg QHS PO Last administered on 04/28/17 19:16; Start 04/24/17 at 21:00 Risperidone (RisperDAL) 0.5 mg HS PO Last administered on 04/28/17 19:17; Start 04/24/17 at 21:00 Venlafaxine HCl (Effexor Xr) 37.5 mg BID PO Last administered on 04/25/17 08: 16; Start 04/25/17 at 09:00; Stop 04/25/17 at 19:20; Status DC Enoxaparin Sodium (Lovenox) 40 mg DAILY06 SQ Last administered on 04/29/17 05: 37; Start 04/25/17 at 06:00 Risperidone (RisperDAL) 4 mg HS PO Last administered on 04/28/17 19:22; Start 04/24/17 at 21:00 Insulin Aspart (NovoLOG) 10 units TIDWMEALS SQ Last administered on 04/29/17 17:18; Start 04/25/17 at 08:00 Insulin Detemir (Levemir) 10 units DAILYWLUN SQ Last administered on 04/29/17 12:24; Start 04/25/17 at 12:00 Insulin Detemir (Levemir) 35 units QHS SQ Last administered on 04/28/17 19:23 ; Start 04/24/17 at 21:00 Insulin Aspart (NovoLOG) 5 units 1X ONCE SQ Last administered on 04/24/17 21: 29; Start 04/24/17 at 19:45; Stop 04/24/17 at 19:46; Status DC Acetaminophen (Tylenol) 650 mg PRN Q4HRS PRN PO PAIN / TEMP Last administered on 04/27/17 09:33; Start 04/25/17 at 12:15 Calcium Polycarbophil (Fibercon) 1,250 mg DAILY PO Last administered on 07:53; Start 04/26/17 at 09:00 Docusate Sodium (Colace) 100 mg PRN DAILY PRN PO CONSTIPATION; Start 04/25/17 at 12:15 Enoxaparin Sodium (Lovenox) 40 mg DAILY06 SQ ; Start 04/26/17 at 06:00; Status Cancel Guaifenesin (Mucinex Er) 600 mg PRN Q8HRS PRN PO COUGH; Start 04/25/17 at 12:15 Levothyroxine Sodium (Synthroid) 75 mcg DAILY06 PO Last administered on 05:36; Start 04/26/17 at 06:00 Loperamide HCl (Imodium) 2 mg QIDPRN PRN PO DIARRHEA; Start 04/25/17 at 12:15 Magnesium Oxide (Magnesium Oxide) 400 mg TIDWMEALS PO Last administered on 04/29 17:04; Start 04/25/17 at 17:00 Metformin HCl (Glucophage) 1,000 mg BIDWMEALS PO Last administered on 17:04; Start 04/25/17 at 17:00 Phenytoin Sodium (Dilantin) 200 mg QHS PO ; Start 04/25/17 at 21:00; Status UNV Polyethylene Glycol (miraLAX) 17 gm PRN DAILY PRN PO CONSTIPATION; Start at 12:15 Potassium Chloride (Klor-Con) 10 meq 3X/WEEK PO Last administered on 04/29/17 07:56; Start 04/27/17 at 09:00 Pregabalin (Lyrica) 75 mg QHS PO Last administered on 04/28/17 19:16; Start at 21:00 Atorvastatin Calcium (Lipitor) 80 mg QHS PO Last administered on 04/28/17 19: 16; Start 04/25/17 at 21:00 Vitamin D (Vitamin D3) 2,000 unit DAILY PO Last administered on 04/29/17 07:54 ; Start 04/26/17 at 09:00 Non-Formulary Medication 2 puff PRN Q4HRS PRN INH SHORTNESS OF BREATH; Start at 12:15; Status UNV Lactobacillus Acidophilus (Bacid, Lisy-Bid) 1 tab DAILY PO Last administered on 04/29/17 07:54; Start 04/26/17 at 09:00 Al Hydroxide/Mg Hydroxide (Mylanta Plus Xs) 15 ml PRN AFTMEALHC PRN PO DYSPEPSIA; Start 04/25/17 at 12:30 Magnesium Hydroxide (Milk Of Magnesia) 2,400 mg PRN QHS PRN PO CONSTIPATION; Start 04/25/17 at 12:30 Phenytoin Sodium (Dilantin) 200 mg QHS PO Last administered on 04/28/17 19:15 ; Start 04/25/17 at 21:00 Levothyroxine Sodium (Synthroid) 75 mcg 1X ONCE PO Last administered on 16:39; Start 04/25/17 at 16:00; Stop 04/25/17 at 16:01; Status DC Albuterol/ Ipratropium (Duoneb) 3 ml PRN Q4HRS PRN NEB SHORTNESS OF BREATH; Start 04/25/17 at 12:30 Trazodone HCl (Desyrel) 50 mg QHS PO Last administered on 04/28/17 19:15; Start 04/25/17 at 21:00 Trazodone HCl (Desyrel) 50 mg PRN QHS PRN PO INSOMNIA, MAY REPEAT X1; Start at 19:00 Duloxetine HCl (Cymbalta) 30 mg DAILY PO Last administered on 04/28/17 07:49; Start 04/26/17 at 09:00; Stop 04/28/17 at 10:00; Status DC Duloxetine HCl (Cymbalta) 60 mg DAILY PO Last administered on 04/29/17 07:57; Start 04/29/17 at 09:00 Divalproex Sodium (Depakote Sprinkles) 500 mg BID PO Last administered on 07:53; Start 04/26/17 at 21:00 Active Scripts Active Reported Miralax (Polyethylene Glycol 3350) 17 Gm Powd.pack 17 Gm PO PRN DAILY PRN Combivent Respimat Inhal (Ipratropium/Albuterol Sulfate) 4 Gm Aer.w.adap 2 Puff INH PRN Q4HRS PRN Mucinex (Guaifenesin) 600 Mg Tablet.er 600 Mg PO PRN Q8HRS PRN Imodium A-D (Loperamide HCl) 2 Mg Capsule 2 Mg PO PRN PRN Effexor Xr (Venlafaxine Hcl) 75 Mg Cap.er.24h 75 Mg PO DAILY Amaryl (Glimepiride) 1 Mg Tablet 1 Mg PO DAILY Cinnamon (Cinnamon Bark) 500 Mg Capsule 1,000 Mg PO QIDACHS Fibercon (Calcium Polycarbophil) 625 Mg Tablet 1,250 Mg PO DAILY Clonazepam 0.5 Mg Tablet 0.25 Tab PO HS Probiotic (Lactobacillus Acidophilus) 1 Each Capsule 1 Each PO DAILY Lovenox (Enoxaparin Sodium) 40 Mg/0.4 Ml Disp.syrin 40 Mg SQ DAILY06 Levemir (Insulin Detemir) 100 Unit/1 Ml Vial 35 Unit SQ HS Levemir (Insulin Detemir) 100 Unit/1 Ml Vial 10 Unit SQ DAILYWLUN Magnesium Oxide 400 Mg Tablet 400 Mg PO TIDWMEALS Advanced Antacid Liquid (Mag Hydrox/Al Hydrox/Simeth) 355 Ml Oral.susp 15 Ml PO PRN AFTMEALHC PRN Lorazepam 0.5 Mg Tablet 0.5 Mg PO PRN Q2HR PRN Colace (Docusate Sodium) 100 Mg Capsule 100 Mg PO PRN DAILY PRN Depakote Sprinkle (Divalproex Sodium) 125 Mg Cap.sprink 375 Mg PO BID Risperidone 0.5 Mg Tablet 4.5 Mg PO HS give with 4 mg dose to make 4.5 mg dose Novolog Flexpen (Insulin Aspart) 100 Unit/1 Ml Insuln.pen 10 Unit SQ TIDWMEALS Sliding Scale: Blood Glucose: < 70 follow Hypoglycemia protocol 70-150 = 0 units if Eating, 0 Units if not eating 151-200 = 2 Units if Eating, 0 Units if not eating 201-250 = 3 Units if Eating, 0 Units if not eating 251-300 = 4 Units if Eating, 2 Units if not eating 301-350 = 5 Units if eating, 3 Units if not eating > or = to 351 Call provider for additional orders Buspirone Hcl 5 Mg Tablet 5 Mg PO TID Do not administer with grapefruit juice Phenytoin 50 Mg Tab.chew 200 Mg PO QHS Administer with HS dose of 300mg for total HS dose of 350mg Milk Of Magnesia (Magnesium Hydroxide) 2,400 Mg/10 Ml Oral.susp 2,400 Mg PO PRN QHS PRN Tylenol (Acetaminophen) 325 Mg Tablet 650 Mg PO PRN Q4HRS PRN Max Acetaminophen dose is 4000mg in 24 hours from all sources for adults Vitamin D3 (Cholecalciferol (Vitamin D3)) 1,000 Unit Capsule 2,000 Unit PO DAILY Levothyroxine Sodium 75 Mcg Tablet 75 Mcg PO DAILY06 Administer on an empty stomach: 1 hour before or 2 hours after a meal Mirtazapine 30 Mg Tablet 15 Mg PO QHS Clonazepam 0.5 Mg Tablet 0.25 Mg PO PRN Q6HRS PRN Lyrica (Pregabalin) 75 Mg Capsule 75 Mg PO QHS Metformin Hcl 500 Mg Tablet 1,000 Mg PO BIDWMEALS Give with meals Potassium Chloride 10 Meq Tab.er.prt 10 Meq PO 3X/WEEK On Thursday and Thursday Atorvastatin Calcium 80 Mg Tablet 80 Mg PO QHS [place] 3 1,000 Mg Softgel ([place]-3 Fatty Acids/Fish Oil) 1 Each Capsule 1,000 Mg PO DAILY Diagnosis: Problems: (1) Suicidal ideation (2) Suicidal ideations (3) Suicidal ideation (4) Medical clearance for psychiatric admission KIT BUENO MD Apr 29, 2017 20:17
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
--- NOTE | 2017-04-29 21:13 | PDOC ---
Exam Jonathan Demential Exam: Jonathan Note: Please also refer to the separate dictated note~for this date of service dictated separately.~Patient seen individually. Discussed the patient with Nursing staff reviewed the chart.~Reviewed interim history and current functioning. Reviewed vital signs,~Labs/ Radiology~and current medications noted below. Continue current treatment with the changes noted in the dictated addendum note S/O: This is a late entry for date of service 04/26/2017. I met with the patient individually on evening of April 26, discussed with nursing staff, and reviewed the chart. Per nursing report, the patient was having some hallucinations last night but none today. She slept better 7 hours last night and was very pleased with this as I met with her in her room. This note covers elements not covered in my initial note. Review of Systems: She does complain of headache. No CV, , Pulmonary, Eye, ENT system symptoms on review. MSE: Reasonably oriented. Speech is coherent. Abstraction is fair. Computation is impaired. Language function is intact. Attention span is short. Mood and affect lability is improved. Imp: Unchanged from initial note. Plan: Valproic acid level is 44. Increase Depakote from 375 mg b.i.d. to 500 mg b.i.d. Check labs and level. Continue rest of the psychotropics. Assessment: Vital Signs: Vital Signs Date Time Temp Pulse Resp B/P (MAP) Pulse Ox O2 Delivery O2 Flow Rate FiO2 04/29/17 15:57 97.8 89 16 110/76 (87) 95 04/27/17 15:29 Room Air I&O Intake and Output 04/29/17 07:00 Intake Total 1560 ml Balance 1560 ml Intake Oral 1560 ml # Bowel Movements 1 Labs: Laboratory Tests Test 04/29/17 07:35 04/29/17 08:48 04/29/17 11:52 04/29/17 17:00 Glucose (Fingerstick) 143 mg/dL (70-99) H 146 mg/dL (70-99) H 173 mg/dL (70-99) H White Blood Count 5.9 x10^3/uL (4.0-11.0) Red Blood Count 4.23 x10^6/uL (3.50-5.40) Hemoglobin 13.1 g/dL (12.0-15.5) Hematocrit 39.6 % (36.0-47.0) Mean Corpuscular Volume 94 fL (79-100) Mean Corpuscular Hemoglobin 31 pg (25-35) Mean Corpuscular Hemoglobin Concent 33 g/dL (31-37) Red Cell Distribution Width 14.0 % (11.5-14.5) Platelet Count 237 x10^3/uL (140-400) Neutrophils (%) (Auto) 44 % (31-73) Lymphocytes (%) (Auto) 44 % (24-48) Monocytes (%) (Auto) 9 % (0-9) Eosinophils (%) (Auto) 3 % (0-3) Basophils (%) (Auto) 1 % (0-3) Neutrophils # (Auto) 2.6 x10^3uL (1.8-7.7) Lymphocytes # (Auto) 2.6 x10^3/uL (1.0-4.8) Monocytes # (Auto) 0.5 x10^3/uL (0.0-1.1) Eosinophils # (Auto) 0.1 x10^3/uL (0.0-0.7) Basophils # (Auto) 0.0 x10^3/uL (0.0-0.2) Sodium Level 142 mmol/L (136-145) Potassium Level 4.4 mmol/L (3.5-5.1) Chloride Level 103 mmol/L (98-107) Carbon Dioxide Level 32 mmol/L (21-32) Anion Gap 7 (6-14) Blood Urea Nitrogen 12 mg/dL (7-20) Creatinine 0.9 mg/dL (0.6-1.0) Estimated GFR (Cockcroft-Gault) 63.4 BUN/Creatinine Ratio 13 (6-20) Glucose Level 248 mg/dL (70-99) H Calcium Level 8.6 mg/dL (8.5-10.1) Total Bilirubin 0.3 mg/dL (0.2-1.0) Aspartate Amino Transferase (AST) 10 U/L (15-37) L Alanine Aminotransferase (ALT) 18 U/L (14-59) Alkaline Phosphatase 59 U/L (46-116) Total Protein 6.7 g/dL (6.4-8.2) Albumin 3.0 g/dL (3.4-5.0) L Albumin/Globulin Ratio 0.8 (1.0-1.7) L Valproic Acid Level 35 mcg/mL (50-100) L Valproic Acid Last Dose Date 04/28/17 Valproic Acid Last Dose Time 2100 Test 04/29/17 19:20 Glucose (Fingerstick) 242 mg/dL (70-99) H Current Medications: Meds: Current Medications Clonazepam (KlonoPIN) 0.25 mg 1X ONCE PO Last administered on 04/24/17 16:26 ; Start 04/24/17 at 16:30; Stop 04/24/17 at 16:31; Status DC Ondansetron HCl (Zofran) 4 mg PRN Q4HRS PRN IV NAUSEA/VOMITING; Start 04/24/17 at 16:45; Stop 04/24/17 at 17:04; Status DC Fentanyl Citrate (Fentanyl 2ml Vial) 50 mcg PRN Q1HR PRN IV PAIN; Start at 16:45; Stop 04/24/17 at 17:04; Status DC Fentanyl Citrate (Fentanyl 2ml Vial) 50 mcg PRN Q2HR PRN IV PAIN; Start at 16:45; Stop 04/25/17 at 16:44; Status UNV Sodium Chloride 1,000 ml @ 100 mls/hr Q10H IV ; Start 04/24/17 at 16:37; Stop 04/24/17 at 17:04; Status DC Acetaminophen (Tylenol) 650 mg PRN Q4HRS PRN PO FEVER; Start 04/24/17 at 16:45 ; Stop 04/24/17 at 17:04; Status DC Albuterol/ Ipratropium (Duoneb) 3 ml RTQID NEB ; Start 04/24/17 at 20:00; Stop 04/24/17 at 20:00; Status DC Methylprednisolone Sodium Succinate (SOLU-Medrol 125MG VIAL) 60 mg Q6HRS IV ; Start 04/24/17 at 18:00; Stop 04/24/17 at 18:00; Status DC Buspirone HCl (Buspar) 5 mg TID PO Last administered on 04/29/17 20:08; Start 04/24/17 at 21:00 Clonazepam (KlonoPIN) 0.25 mg PRN Q6HRS PRN PO ANXIETY; Start 04/24/17 at 17:15 Clonazepam (KlonoPIN) 0.125 mg HS PO Last administered on 04/29/17 20:13; Start 04/24/17 at 21:00 Divalproex Sodium (Depakote Sprinkles) 375 mg BID PO Last administered on 07:41; Start 04/24/17 at 21:00; Stop 04/26/17 at 19:29; Status DC Lorazepam (Ativan) 0.5 mg PRN Q2HR PRN PO ANXIETY / AGITATION Last administered on 04/25/17 08:39; Start 04/24/17 at 17:15 Mirtazapine (Remeron) 15 mg QHS PO Last administered on 04/29/17 20:12; Start 04/24/17 at 21:00 Risperidone (RisperDAL) 0.5 mg HS PO Last administered on 04/29/17 20:08; Start 04/24/17 at 21:00 Venlafaxine HCl (Effexor Xr) 37.5 mg BID PO Last administered on 04/25/17 08: 16; Start 04/25/17 at 09:00; Stop 04/25/17 at 19:20; Status DC Enoxaparin Sodium (Lovenox) 40 mg DAILY06 SQ Last administered on 04/29/17 05: 37; Start 04/25/17 at 06:00 Risperidone (RisperDAL) 4 mg HS PO Last administered on 04/29/17 20:08; Start 04/24/17 at 21:00 Insulin Aspart (NovoLOG) 10 units TIDWMEALS SQ Last administered on 04/29/17 17:18; Start 04/25/17 at 08:00 Insulin Detemir (Levemir) 10 units DAILYWLUN SQ Last administered on 04/29/17 12:24; Start 04/25/17 at 12:00 Insulin Detemir (Levemir) 35 units QHS SQ Last administered on 04/29/17 20:26 ; Start 04/24/17 at 21:00 Insulin Aspart (NovoLOG) 5 units 1X ONCE SQ Last administered on 04/24/17 21: 29; Start 04/24/17 at 19:45; Stop 04/24/17 at 19:46; Status DC Acetaminophen (Tylenol) 650 mg PRN Q4HRS PRN PO PAIN / TEMP Last administered on 04/27/17 09:33; Start 04/25/17 at 12:15 Calcium Polycarbophil (Fibercon) 1,250 mg DAILY PO Last administered on 07:53; Start 04/26/17 at 09:00 Docusate Sodium (Colace) 100 mg PRN DAILY PRN PO CONSTIPATION; Start 04/25/17 at 12:15 Enoxaparin Sodium (Lovenox) 40 mg DAILY06 SQ ; Start 04/26/17 at 06:00; Status Cancel Guaifenesin (Mucinex Er) 600 mg PRN Q8HRS PRN PO COUGH; Start 04/25/17 at 12:15 Levothyroxine Sodium (Synthroid) 75 mcg DAILY06 PO Last administered on 05:36; Start 04/26/17 at 06:00 Loperamide HCl (Imodium) 2 mg QIDPRN PRN PO DIARRHEA; Start 04/25/17 at 12:15 Magnesium Oxide (Magnesium Oxide) 400 mg TIDWMEALS PO Last administered on 04/29 17:04; Start 04/25/17 at 17:00 Metformin HCl (Glucophage) 1,000 mg BIDWMEALS PO Last administered on 17:04; Start 04/25/17 at 17:00 Phenytoin Sodium (Dilantin) 200 mg QHS PO ; Start 04/25/17 at 21:00; Status UNV Polyethylene Glycol (miraLAX) 17 gm PRN DAILY PRN PO CONSTIPATION; Start at 12:15 Potassium Chloride (Klor-Con) 10 meq 3X/WEEK PO Last administered on 04/29/17 07:56; Start 04/27/17 at 09:00 Pregabalin (Lyrica) 75 mg QHS PO Last administered on 04/29/17 20:17; Start at 21:00 Atorvastatin Calcium (Lipitor) 80 mg QHS PO Last administered on 04/29/17 20: 12; Start 04/25/17 at 21:00 Vitamin D (Vitamin D3) 2,000 unit DAILY PO Last administered on 04/29/17 07:54 ; Start 04/26/17 at 09:00 Non-Formulary Medication 2 puff PRN Q4HRS PRN INH SHORTNESS OF BREATH; Start at 12:15; Status UNV Lactobacillus Acidophilus (Bacid, Lisy-Bid) 1 tab DAILY PO Last administered on 04/29/17 07:54; Start 04/26/17 at 09:00 Al Hydroxide/Mg Hydroxide (Mylanta Plus Xs) 15 ml PRN AFTMEALHC PRN PO DYSPEPSIA; Start 04/25/17 at 12:30 Magnesium Hydroxide (Milk Of Magnesia) 2,400 mg PRN QHS PRN PO CONSTIPATION; Start 04/25/17 at 12:30 Phenytoin Sodium (Dilantin) 200 mg QHS PO Last administered on 04/29/17 20:10 ; Start 04/25/17 at 21:00 Levothyroxine Sodium (Synthroid) 75 mcg 1X ONCE PO Last administered on 16:39; Start 04/25/17 at 16:00; Stop 04/25/17 at 16:01; Status DC Albuterol/ Ipratropium (Duoneb) 3 ml PRN Q4HRS PRN NEB SHORTNESS OF BREATH; Start 04/25/17 at 12:30 Trazodone HCl (Desyrel) 50 mg QHS PO Last administered on 04/29/17 20:09; Start 04/25/17 at 21:00 Trazodone HCl (Desyrel) 50 mg PRN QHS PRN PO INSOMNIA, MAY REPEAT X1; Start at 19:00 Duloxetine HCl (Cymbalta) 30 mg DAILY PO Last administered on 04/28/17 07:49; Start 04/26/17 at 09:00; Stop 04/28/17 at 10:00; Status DC Duloxetine HCl (Cymbalta) 60 mg DAILY PO Last administered on 04/29/17 07:57; Start 04/29/17 at 09:00 Divalproex Sodium (Depakote Sprinkles) 500 mg BID PO Last administered on 20:11; Start 04/26/17 at 21:00 Active Scripts Active Reported Miralax (Polyethylene Glycol 3350) 17 Gm Powd.pack 17 Gm PO PRN DAILY PRN Combivent Respimat Inhal (Ipratropium/Albuterol Sulfate) 4 Gm Aer.w.adap 2 Puff INH PRN Q4HRS PRN Mucinex (Guaifenesin) 600 Mg Tablet.er 600 Mg PO PRN Q8HRS PRN Imodium A-D (Loperamide HCl) 2 Mg Capsule 2 Mg PO PRN PRN Effexor Xr (Venlafaxine Hcl) 75 Mg Cap.er.24h 75 Mg PO DAILY Amaryl (Glimepiride) 1 Mg Tablet 1 Mg PO DAILY Cinnamon (Cinnamon Bark) 500 Mg Capsule 1,000 Mg PO QIDACHS Fibercon (Calcium Polycarbophil) 625 Mg Tablet 1,250 Mg PO DAILY Clonazepam 0.5 Mg Tablet 0.25 Tab PO HS Probiotic (Lactobacillus Acidophilus) 1 Each Capsule 1 Each PO DAILY Lovenox (Enoxaparin Sodium) 40 Mg/0.4 Ml Disp.syrin 40 Mg SQ DAILY06 Levemir (Insulin Detemir) 100 Unit/1 Ml Vial 35 Unit SQ HS Levemir (Insulin Detemir) 100 Unit/1 Ml Vial 10 Unit SQ DAILYWLUN Magnesium Oxide 400 Mg Tablet 400 Mg PO TIDWMEALS Advanced Antacid Liquid (Mag Hydrox/Al Hydrox/Simeth) 355 Ml Oral.susp 15 Ml PO PRN AFTMEALHC PRN Lorazepam 0.5 Mg Tablet 0.5 Mg PO PRN Q2HR PRN Colace (Docusate Sodium) 100 Mg Capsule 100 Mg PO PRN DAILY PRN Depakote Sprinkle (Divalproex Sodium) 125 Mg Cap.sprink 375 Mg PO BID Risperidone 0.5 Mg Tablet 4.5 Mg PO HS give with 4 mg dose to make 4.5 mg dose Novolog Flexpen (Insulin Aspart) 100 Unit/1 Ml Insuln.pen 10 Unit SQ TIDWMEALS Sliding Scale: Blood Glucose: < 70 follow Hypoglycemia protocol 70-150 = 0 units if Eating, 0 Units if not eating 151-200 = 2 Units if Eating, 0 Units if not eating 201-250 = 3 Units if Eating, 0 Units if not eating 251-300 = 4 Units if Eating, 2 Units if not eating 301-350 = 5 Units if eating, 3 Units if not eating > or = to 351 Call provider for additional orders Buspirone Hcl 5 Mg Tablet 5 Mg PO TID Do not administer with grapefruit juice Phenytoin 50 Mg Tab.chew 200 Mg PO QHS Administer with HS dose of 300mg for total HS dose of 350mg Milk Of Magnesia (Magnesium Hydroxide) 2,400 Mg/10 Ml Oral.susp 2,400 Mg PO PRN QHS PRN Tylenol (Acetaminophen) 325 Mg Tablet 650 Mg PO PRN Q4HRS PRN Max Acetaminophen dose is 4000mg in 24 hours from all sources for adults Vitamin D3 (Cholecalciferol (Vitamin D3)) 1,000 Unit Capsule 2,000 Unit PO DAILY Levothyroxine Sodium 75 Mcg Tablet 75 Mcg PO DAILY06 Administer on an empty stomach: 1 hour before or 2 hours after a meal Mirtazapine 30 Mg Tablet 15 Mg PO QHS Clonazepam 0.5 Mg Tablet 0.25 Mg PO PRN Q6HRS PRN Lyrica (Pregabalin) 75 Mg Capsule 75 Mg PO QHS Metformin Hcl 500 Mg Tablet 1,000 Mg PO BIDWMEALS Give with meals Potassium Chloride 10 Meq Tab.er.prt 10 Meq PO 3X/WEEK On Thursday and Thursday Atorvastatin Calcium 80 Mg Tablet 80 Mg PO QHS [place] 3 1,000 Mg Softgel ([place]-3 Fatty Acids/Fish Oil) 1 Each Capsule 1,000 Mg PO DAILY KIT BUENO MD Apr 29, 2017 21:13
[2017-04-30] MEDS ORDERED: DULO60CA44 PO (00:25)
[2017-04-30] MEDS ORDERED: RISP4TAB2 PO (00:34)
[2017-04-30] MEDS ORDERED: TRAZ50TA15 PO ×2 (00:35→00:36)
[2017-04-30] MEDS: LEVOTHYROXINE 75 MCG TABLET PO SCH (05:20)
[2017-04-30] MEDS: ENOXAPARIN 40 MG/0.4 ML DISP.SYRIN. SQ SCH (05:22)
[2017-04-30 05:26] VITALS: BP 128/80
[2017-04-30] MEDS: busPIRone 5 MG TABLET. PO SCH ×2 (08:21→13:06)
[2017-04-30] MEDS: CALCIUM POLYCARBOPHIL 625 MG TABLET PO SCH (08:21)
[2017-04-30] MEDS: CHOLECALCIFEROL (VITAMIN D3) 1,000 UNIT TABLET PO SCH (08:22)
[2017-04-30] MEDS: MAGNESIUM OXIDE 400 MG TABLET PO SCH ×2 (08:22→13:06)
[2017-04-30] MEDS: DULoxetine HCL 60 MG CAPSULE.DR PO SCH (08:22)
[2017-04-30] MEDS: DIVALPROEX 125 MG CAP.SPRINK PO SCH (08:22)
[2017-04-30] MEDS: metFORMIN 500 MG TABLET PO SCH (08:22)
[2017-04-30] MEDS: INSULIN ASPART 300 UNITS/3 ML INSULN.PEN SQ SCH ×2 (08:24→13:13)
[2017-04-30] MEDS: LACTOBACILLUS ACIDOPH & BULGAR 1 TABLET. PO SCH (08:24)
[2017-04-30] MEDS: INSULIN DETEMIR 300 UNITS/3 ML INSULN.PEN. SQ SCH (13:09)
--- NOTE | 2017-04-30 20:45 | PDOC ---
Exam Jonathan Demential Exam: Jonathan Note: Please also refer to the separate dictated note~for this date of service dictated separately.~Patient seen individually. Discussed the patient with Nursing staff reviewed the chart.~Reviewed interim history and current functioning. Reviewed vital signs,~Labs/ Radiology~and current medications noted below. Continue current treatment with the changes noted in the dictated addendum note S/O: This is a late entry of April 27 covers elements not covered in my initial note. Per nursing report, the patient has been cooperative. The patient was hallucinating last evening, but not today. Denies suicidal ideation. Review of Systems: No CV, , Pulmonary, Eye, ENT system symptoms on review. MSE: Reasonably oriented. Speech is coherent, has some latency. Abstraction fair. Computation impaired. Language function intact. Mood and affect overall improved. Labs: Reviewed. Impression: Unchanged from initial note. Plan: Continue current psychotropics as mentioned in my initial note. Assessment: Vital Signs: Vital Signs Date Time Temp Pulse Resp B/P (MAP) Pulse Ox O2 Delivery O2 Flow Rate FiO2 04/30/17 05:26 96.9 79 18 128/80 (96) 93 04/27/17 15:29 Room Air I&O Intake and Output 04/30/17 07:00 Intake Total 1680 ml Balance 1680 ml Intake Oral 1680 ml # Bowel Movements 1 Labs: Laboratory Tests Test 04/30/17 07:38 04/30/17 12:43 Glucose (Fingerstick) 138 mg/dL (70-99) H 173 mg/dL (70-99) H Current Medications: Meds: Current Medications Clonazepam (KlonoPIN) 0.25 mg 1X ONCE PO Last administered on 04/24/17t 16:26 ; Start 04/24/17 at 16:30; Stop 04/24/17 at 16:31; Status DC Ondansetron HCl (Zofran) 4 mg PRN Q4HRS PRN IV NAUSEA/VOMITING; Start 04/24/17 at 16:45; Stop 04/24/17 at 17:04; Status DC Fentanyl Citrate (Fentanyl 2ml Vial) 50 mcg PRN Q1HR PRN IV PAIN; Start at 16:45; Stop 04/24/17 at 17:04; Status DC Fentanyl Citrate (Fentanyl 2ml Vial) 50 mcg PRN Q2HR PRN IV PAIN; Start at 16:45; Stop 04/25/17 at 16:44; Status UNV Sodium Chloride 1,000 ml @ 100 mls/hr Q10H IV ; Start 04/24/17 at 16:37; Stop 04/24/17 at 17:04; Status DC Acetaminophen (Tylenol) 650 mg PRN Q4HRS PRN PO FEVER; Start 04/24/17 at 16:45 ; Stop 04/24/17 at 17:04; Status DC Albuterol/ Ipratropium (Duoneb) 3 ml RTQID NEB ; Start 04/24/17 at 20:00; Stop 04/24/17 at 20:00; Status DC Methylprednisolone Sodium Succinate (SOLU-Medrol 125MG VIAL) 60 mg Q6HRS IV ; Start 04/24/17 at 18:00; Stop 04/24/17 at 18:00; Status DC Buspirone HCl (Buspar) 5 mg TID PO Last administered on 04/30/17 13:06; Start 04/24/17 at 21:00; Stop 04/30/17 at 15:39; Status DC Clonazepam (KlonoPIN) 0.25 mg PRN Q6HRS PRN PO ANXIETY; Start 04/24/17 at 17:15 ; Stop 04/30/17 at 15:39; Status DC Clonazepam (KlonoPIN) 0.125 mg HS PO Last administered on 04/29/17 20:13; Start 04/24/17 at 21:00; Stop 04/30/17 at 15:39; Status DC Divalproex Sodium (Depakote Sprinkles) 375 mg BID PO Last administered on 07:41; Start 04/24/17 at 21:00; Stop 04/26/17 at 19:29; Status DC Lorazepam (Ativan) 0.5 mg PRN Q2HR PRN PO ANXIETY / AGITATION Last administered on 04/25/17 08:39; Start 04/24/17 at 17:15; Stop 04/30/17 at 15:39 ; Status DC Mirtazapine (Remeron) 15 mg QHS PO Last administered on 04/29/17 20:12; Start 04/24/17 at 21:00; Stop 04/30/17 at 15:39; Status DC Risperidone (RisperDAL) 0.5 mg HS PO Last administered on 04/29/17 20:08; Start 04/24/17 at 21:00; Stop 04/30/17 at 15:39; Status DC Venlafaxine HCl (Effexor Xr) 37.5 mg BID PO Last administered on 04/25/17 08: 16; Start 04/25/17 at 09:00; Stop 04/25/17 at 19:20; Status DC Enoxaparin Sodium (Lovenox) 40 mg DAILY06 SQ Last administered on 04/30/17 05: 22; Start 04/25/17 at 06:00; Stop 04/30/17 at 15:39; Status DC Risperidone (RisperDAL) 4 mg HS PO Last administered on 04/29/17 20:08; Start 04/24/17 at 21:00; Stop 04/30/17 at 15:39; Status DC Insulin Aspart (NovoLOG) 10 units TIDWMEALS SQ Last administered on 04/30/17 13:13; Start 04/25/17 at 08:00; Stop 04/30/17 at 15:39; Status DC Insulin Detemir (Levemir) 10 units DAILYWLUN SQ Last administered on 04/30/17 13:09; Start 04/25/17 at 12:00; Stop 04/30/17 at 15:39; Status DC Insulin Detemir (Levemir) 35 units QHS SQ Last administered on 04/29/17 20:26 ; Start 04/24/17 at 21:00; Stop 04/30/17 at 15:39; Status DC Insulin Aspart (NovoLOG) 5 units 1X ONCE SQ Last administered on 04/24/17 21: 29; Start 04/24/17 at 19:45; Stop 04/24/17 at 19:46; Status DC Acetaminophen (Tylenol) 650 mg PRN Q4HRS PRN PO PAIN / TEMP Last administered on 04/27/17 09:33; Start 04/25/17 at 12:15; Stop 04/30/17 at 15:39; Status DC Calcium Polycarbophil (Fibercon) 1,250 mg DAILY PO Last administered on 08:21; Start 04/26/17 at 09:00; Stop 04/30/17 at 15:39; Status DC Docusate Sodium (Colace) 100 mg PRN DAILY PRN PO CONSTIPATION; Start 04/25/17 at 12:15; Stop 04/30/17 at 15:39; Status DC Enoxaparin Sodium (Lovenox) 40 mg DAILY06 SQ ; Start 04/26/17 at 06:00; Status Cancel Guaifenesin (Mucinex Er) 600 mg PRN Q8HRS PRN PO COUGH; Start 04/25/17 at 12:15 ; Stop 04/30/17 at 15:39; Status DC Levothyroxine Sodium (Synthroid) 75 mcg DAILY06 PO Last administered on 05:20; Start 04/26/17 at 06:00; Stop 04/30/17 at 15:39; Status DC Loperamide HCl (Imodium) 2 mg QIDPRN PRN PO DIARRHEA; Start 04/25/17 at 12:15; Stop 04/30/17 at 15:39; Status DC Magnesium Oxide (Magnesium Oxide) 400 mg TIDWMEALS PO Last administered on 04/30 13:06; Start 04/25/17 at 17:00; Stop 04/30/17 at 15:39; Status DC Metformin HCl (Glucophage) 1,000 mg BIDWMEALS PO Last administered on 08:22; Start 04/25/17 at 17:00; Stop 04/30/17 at 15:39; Status DC Phenytoin Sodium (Dilantin) 200 mg QHS PO ; Start 04/25/17 at 21:00; Status UNV Polyethylene Glycol (miraLAX) 17 gm PRN DAILY PRN PO CONSTIPATION; Start at 12:15; Stop 04/30/17 at 15:39; Status DC Potassium Chloride (Klor-Con) 10 meq 3X/WEEK PO Last administered on 04/29/17 07:56; Start 04/27/17 at 09:00; Stop 04/30/17 at 15:39; Status DC Pregabalin (Lyrica) 75 mg QHS PO Last administered on 04/29/17 20:17; Start at 21:00; Stop 04/30/17 at 15:39; Status DC Atorvastatin Calcium (Lipitor) 80 mg QHS PO Last administered on 04/29/17 20: 12; Start 04/25/17 at 21:00; Stop 04/30/17 at 15:39; Status DC Vitamin D (Vitamin D3) 2,000 unit DAILY PO Last administered on 04/30/17 08:22 ; Start 04/26/17 at 09:00; Stop 04/30/17 at 15:39; Status DC Non-Formulary Medication 2 puff PRN Q4HRS PRN INH SHORTNESS OF BREATH; Start at 12:15; Status UNV Lactobacillus Acidophilus (Bacid, Lisy-Bid) 1 tab DAILY PO Last administered on 04/30/17 08:24; Start 04/26/17 at 09:00; Stop 04/30/17 at 15:39; Status DC Al Hydroxide/Mg Hydroxide (Mylanta Plus Xs) 15 ml PRN AFTMEALHC PRN PO DYSPEPSIA; Start 04/25/17 at 12:30; Stop 04/30/17 at 15:39; Status DC Magnesium Hydroxide (Milk Of Magnesia) 2,400 mg PRN QHS PRN PO CONSTIPATION; Start 04/25/17 at 12:30; Stop 04/30/17 at 15:39; Status DC Phenytoin Sodium (Dilantin) 200 mg QHS PO Last administered on 04/29/17 20:10 ; Start 04/25/17 at 21:00; Stop 04/30/17 at 15:39; Status DC Levothyroxine Sodium (Synthroid) 75 mcg 1X ONCE PO Last administered on 16:39; Start 04/25/17 at 16:00; Stop 04/25/17 at 16:01; Status DC Albuterol/ Ipratropium (Duoneb) 3 ml PRN Q4HRS PRN NEB SHORTNESS OF BREATH; Start 04/25/17 at 12:30; Stop 04/30/17 at 15:39; Status DC Trazodone HCl (Desyrel) 50 mg QHS PO Last administered on 04/29/17 20:09; Start 04/25/17 at 21:00; Stop 04/30/17 at 15:39; Status DC Trazodone HCl (Desyrel) 50 mg PRN QHS PRN PO INSOMNIA, MAY REPEAT X1; Start at 19:00; Stop 04/30/17 at 15:39; Status DC Duloxetine HCl (Cymbalta) 30 mg DAILY PO Last administered on 04/28/17 07:49; Start 04/26/17 at 09:00; Stop 04/28/17 at 10:00; Status DC Duloxetine HCl (Cymbalta) 60 mg DAILY PO Last administered on 04/30/17 08:22; Start 04/29/17 at 09:00; Stop 04/30/17 at 15:39; Status DC Divalproex Sodium (Depakote Sprinkles) 500 mg BID PO Last administered on 08:22; Start 04/26/17 at 21:00; Stop 04/30/17 at 10:52; Status DC Divalproex Sodium (Depakote Sprinkles) 750 mg BID PO ; Start 04/30/17 at 21:00; Stop 04/30/17 at 21:00; Status DC Active Scripts Active Reported Trazodone Hcl 50 Mg Tablet 50 Mg PO PRN QHS PRN Trazodone Hcl 50 Mg Tablet 50 Mg PO QHS Risperidone 4 Mg Tablet 4 Mg PO HS Duloxetine Hcl 60 Mg Capsule.dr 60 Mg PO DAILY Miralax (Polyethylene Glycol 3350) 17 Gm Powd.pack 17 Gm PO PRN DAILY PRN Combivent Respimat Inhal (Ipratropium/Albuterol Sulfate) 4 Gm Aer.w.adap 2 Puff INH PRN Q4HRS PRN Mucinex (Guaifenesin) 600 Mg Tablet.er 600 Mg PO PRN Q8HRS PRN Imodium A-D (Loperamide HCl) 2 Mg Capsule 2 Mg PO PRN QID PRN Fibercon (Calcium Polycarbophil) 625 Mg Tablet 1,250 Mg PO DAILY Clonazepam 0.5 Mg Tablet 0.125 Mg PO HS Probiotic (Lactobacillus Acidophilus) 1 Each Capsule 1 Tab PO DAILY Levemir (Insulin Detemir) 100 Unit/1 Ml Vial 35 Unit SQ HS Levemir (Insulin Detemir) 100 Unit/1 Ml Vial 10 Unit SQ DAILYWLUN Magnesium Oxide 400 Mg Tablet 400 Mg PO TIDWMEALS Advanced Antacid Liquid (Mag Hydrox/Al Hydrox/Simeth) 355 Ml Oral.susp 15 Ml PO PRN AFTMEALHC PRN Colace (Docusate Sodium) 100 Mg Capsule 100 Mg PO PRN DAILY PRN Depakote Sprinkle (Divalproex Sodium) 125 Mg Cap.sprink 500 Mg PO BID Risperidone 0.5 Mg Tablet 0.5 Mg PO HS give with 4 mg dose to make 4.5 mg dose Novolog Flexpen (Insulin Aspart) 100 Unit/1 Ml Insuln.pen 10 Unit SQ TIDWMEALS Sliding Scale: Blood Glucose: < 70 follow Hypoglycemia protocol 70-150 = 0 units if Eating, 0 Units if not eating 151-200 = 2 Units if Eating, 0 Units if not eating 201-250 = 3 Units if Eating, 0 Units if not eating 251-300 = 4 Units if Eating, 2 Units if not eating 301-350 = 5 Units if eating, 3 Units if not eating > or = to 351 Call provider for additional orders Buspirone Hcl 5 Mg Tablet 5 Mg PO TID Do not administer with grapefruit juice Phenytoin 50 Mg Tab.chew 200 Mg PO QHS Administer with HS dose of 300mg for total HS dose of 350mg Milk Of Magnesia (Magnesium Hydroxide) 2,400 Mg/10 Ml Oral.susp 2,400 Mg PO PRN QHS PRN Tylenol (Acetaminophen) 325 Mg Tablet 650 Mg PO PRN Q4HRS PRN Max Acetaminophen dose is 4000mg in 24 hours from all sources for adults Vitamin D3 (Cholecalciferol (Vitamin D3)) 1,000 Unit Capsule 2,000 Unit PO DAILY Levothyroxine Sodium 75 Mcg Tablet 75 Mcg PO DAILY06 Administer on an empty stomach: 1 hour before or 2 hours after a meal Mirtazapine 30 Mg Tablet 15 Mg PO QHS Clonazepam 0.5 Mg Tablet 0.25 Mg PO PRN Q6HRS PRN Lyrica (Pregabalin) 75 Mg Capsule 75 Mg PO QHS Metformin Hcl 500 Mg Tablet 1,000 Mg PO BIDWMEALS Give with meals Potassium Chloride 10 Meq Tab.er.prt 10 Meq PO 3X/WEEK On Thursday and Thursday Atorvastatin Calcium 80 Mg Tablet 80 Mg PO QHS KIT BUENO MD Apr 30, 2017 20:45
[2017-04-30] MEDS ORDERED: DIVALPROEX 125 MG CAP.SPRINK PO SCH (21:00)
--- NOTE | 2017-05-01 01:56 | ACF ---
Admit Criteria Forms Admit Criteria Forms Admit Criteria Forms PSYCHIATRIC DISORDERS Clinical Indications for Inpatient Care (Place 'X' for any and all applicable criteria): Ongoing inpatient care may be needed for 1 or more of the following(1)(2)(3)(4)( 6)(7)(8): [X]I. Danger to self or others not manageable at lower level of care. [ ]II. Grave disability (eg, inability to perform self care necessary at lower level of care) [ ]III. Agitation or inappropriate behavior interfering with care for primary condition (eg, attempting to discontinue lines or drains prematurely, unable to cooperate with respiratory care) [X]IV. Severe disability or disorder indicated by ALL of the following: [X]a) Severe behavioral health disorder-related symptoms or condition indicated by 1 or more of the following: [ ]i) Severe problem with cognition, memory, judgment, or impulse control [X]ii) Severe clinical manifestations (eg, hallucinations, delusions, other acute psychotic symptoms, jean carlos, extreme agitation or anxiety) [X]b) Patient management at lower level of care is not feasible until acute intervention or modification is initiated. Extended stay beyond goal length of stay for the primary condition may be needed untilALLof the following are present(1)(2)(3)(4)(722)(23): [ ]a) Danger to self or others is absent or manageable at lower level of care [ ]b) Behavior crisis management, including physical or chemical restraints, is required and is not available at a lower level of care. [ ]c) Behavioral symptoms (e.g., agitation, somnolence, inappropriate behavior) are present, and are not manageable at a lower level of care. [ ]d) Patient cannot understand follow-up treatment and crisis plan. [ ]e) Provider and supports are sufficiently available at lower level of care. [ ]f) Patient can participate (e.g., verify absence of plan for harm) and is in needed of monitoring. The original [email or web address] [employer] content created by [email or web address] [employer] has been revised. The portions of the content which have been revised are identified through the use of italic text, and [facility] [employer] has neither reviewed nor approved the modified material. All other unmodified content is copyright [facility] [employer]. Please see references footnoted in the original [facility] edition 2014 RAMONE MARTEL May 01, 2017 01:55
--- NOTE | 2017-05-01 04:15 | DS ---
DATE OF DISCHARGE: 04/30/2017 DISCHARGE SUMMARY/PSYCHIATRIC PROGRESS NOTE REASON FOR ADMISSION: Please refer to the admission history for details. Briefly, the patient is a 61-year-old female who returns back to us for one of many psychiatric inpatient hospitalizations having been [facility] jail on account of worsening symptoms of bipolar disorder after the patient voiced suicidal ideation with a plan. She stated she hears voices telling her to cut herself with scissors. She was afraid she might follow through with this. She had been at the jail for about 6 months, having gone there after another psychiatric hospitalization here until now she had been stable. SIGNIFICANT FINDINGS AND CLINICAL COURSE: Following admission, the patient was seen daily individually by myself from a psychiatric standpoint medical followup with Dr. Lang/Dr. Barrios. Initially, the patient admitted to intermittent hallucinations and suicidal ideation with no specific plan or intent. Adjustments were made in her psychotropics. Valproic acid level was subtherapeutic at 35 and Depakote was increased from 500 mg b.i.d. to 750 mg twice a day with CBC, CMP, valproic acid level to be checked in 3 days. Adjustments also made in her Cymbalta 30 mg a day, increasing to 60 mg a day and she was on Klonopin p.r.n., Ativan p.r.n., BuSpar 5 mg 3 times a day, Remeron 15 mg at bedtime, Risperdal 4.5 mg daily and trazodone 50 at bedtime, may repeat x 1 p.r.n. for insomnia prior to discharge on 04/29/2017. REVIEW OF SYSTEMS: No CV, , pulmonary, eye, ENT system symptoms on review. Reliability fair. MENTAL STATUS EXAM: Oriented to herself and situation. Speech is coherent, abstraction fair, computation impaired, language function intact. No active psychotic symptoms, suicidal or homicidal ideation. Mood and affect are improved. FINAL DIAGNOSES: Bipolar 1 disorder, mixed with psychotic features, in partial remission; anxiety disorder, unspecified personality disorder, unspecified; impulse control disorder, unspecified. Rest diagnoses unchanged from admission. DISCHARGE MEDICATIONS: Please refer to EMRAD. CBC, CMP, valproic acid level to be checked in 3 days since Depakote was just increased. DISCHARGE INSTRUCTIONS: Outpatient psychiatric and medical follow up at the jail. Time for discharge day management greater than 30 minutes. MAN Chintan BUENO MD DR: LACEY/haile JOB#: [id number] / [id number]
--- NOTE | 2017-05-03 20:23 | PDOC ---
Exam Jonathan Demential Exam: Jonathan Note: Please also refer to the separate dictated note~for this date of service dictated separately.~Patient seen individually. Discussed the patient with Nursing staff reviewed the chart.~Reviewed interim history and current functioning. Reviewed vital signs,~Labs/ Radiology~and current medications noted below. Continue current treatment with the changes noted in the dictated addendum note S/O: This is a late entry for date of service April 28 and covers elements not covered in my initial note of April 28. The patient was seen individually on the evening of April 28. The patient has been calm, denies suicidal ideation, and denied hallucinations. Around 2 p.m., she asked for medications to help her with depression. On questioning, she felt anxious and responded to p.r.n. We also discussed with Ms. Horner, social service staff earlier in the day about discharge plan for the end of the week. MSE: Reasonably oriented. Speech is coherent. Abstraction is fair. Computation is impaired. Language and function is intact. Mood and affect is somewhat withdrawn. Labs: Reviewed. Imp: Unchanged from initial note. Plan: Continue current psychotropics. Assessment: Vital Signs: Vital Signs Date Time Temp Pulse Resp B/P (MAP) Pulse Ox O2 Delivery O2 Flow Rate FiO2 04/30/17 05:26 96.9 79 18 128/80 (96) 93 04/27/17 15:29 Room Air Current Medications: Meds: Current Medications Clonazepam (KlonoPIN) 0.25 mg 1X ONCE PO Last administered on 04/24/17t 16:26 ; Start 04/24/17 at 16:30; Stop 04/24/17 at 16:31; Status DC Ondansetron HCl (Zofran) 4 mg PRN Q4HRS PRN IV NAUSEA/VOMITING; Start 04/24/17 at 16:45; Stop 04/24/17 at 17:04; Status DC Fentanyl Citrate (Fentanyl 2ml Vial) 50 mcg PRN Q1HR PRN IV PAIN; Start at 16:45; Stop 04/24/17 at 17:04; Status DC Fentanyl Citrate (Fentanyl 2ml Vial) 50 mcg PRN Q2HR PRN IV PAIN; Start at 16:45; Stop 04/25/17 at 16:44; Status UNV Sodium Chloride 1,000 ml @ 100 mls/hr Q10H IV ; Start 04/24/17 at 16:37; Stop 04/24/17 at 17:04; Status DC Acetaminophen (Tylenol) 650 mg PRN Q4HRS PRN PO FEVER; Start 04/24/17 at 16:45 ; Stop 04/24/17 at 17:04; Status DC Albuterol/ Ipratropium (Duoneb) 3 ml RTQID NEB ; Start 04/24/17 at 20:00; Stop 04/24/17 at 20:00; Status DC Methylprednisolone Sodium Succinate (SOLU-Medrol 125MG VIAL) 60 mg Q6HRS IV ; Start 04/24/17 at 18:00; Stop 04/24/17 at 18:00; Status DC Buspirone HCl (Buspar) 5 mg TID PO Last administered on 04/30/17 13:06; Start 04/24/17 at 21:00; Stop 04/30/17 at 15:39; Status DC Clonazepam (KlonoPIN) 0.25 mg PRN Q6HRS PRN PO ANXIETY; Start 04/24/17 at 17:15 ; Stop 04/30/17 at 15:39; Status DC Clonazepam (KlonoPIN) 0.125 mg HS PO Last administered on 04/29/17 20:13; Start 04/24/17 at 21:00; Stop 04/30/17 at 15:39; Status DC Divalproex Sodium (Depakote Sprinkles) 375 mg BID PO Last administered on 07:41; Start 04/24/17 at 21:00; Stop 04/26/17 at 19:29; Status DC Lorazepam (Ativan) 0.5 mg PRN Q2HR PRN PO ANXIETY / AGITATION Last administered on 04/25/17 08:39; Start 04/24/17 at 17:15; Stop 04/30/17 at 15:39 ; Status DC Mirtazapine (Remeron) 15 mg QHS PO Last administered on 04/29/17 20:12; Start 04/24/17 at 21:00; Stop 04/30/17 at 15:39; Status DC Risperidone (RisperDAL) 0.5 mg HS PO Last administered on 04/29/17 20:08; Start 04/24/17 at 21:00; Stop 04/30/17 at 15:39; Status DC Venlafaxine HCl (Effexor Xr) 37.5 mg BID PO Last administered on 04/25/17 08: 16; Start 04/25/17 at 09:00; Stop 04/25/17 at 19:20; Status DC Enoxaparin Sodium (Lovenox) 40 mg DAILY06 SQ Last administered on 04/30/17 05: 22; Start 04/25/17 at 06:00; Stop 04/30/17 at 15:39; Status DC Risperidone (RisperDAL) 4 mg HS PO Last administered on 04/29/17 20:08; Start 04/24/17 at 21:00; Stop 04/30/17 at 15:39; Status DC Insulin Aspart (NovoLOG) 10 units TIDWMEALS SQ Last administered on 04/30/17 13:13; Start 04/25/17 at 08:00; Stop 04/30/17 at 15:39; Status DC Insulin Detemir (Levemir) 10 units DAILYWLUN SQ Last administered on 04/30/17 13:09; Start 04/25/17 at 12:00; Stop 04/30/17 at 15:39; Status DC Insulin Detemir (Levemir) 35 units QHS SQ Last administered on 04/29/17 20:26 ; Start 04/24/17 at 21:00; Stop 04/30/17 at 15:39; Status DC Insulin Aspart (NovoLOG) 5 units 1X ONCE SQ Last administered on 04/24/17 21: 29; Start 04/24/17 at 19:45; Stop 04/24/17 at 19:46; Status DC Acetaminophen (Tylenol) 650 mg PRN Q4HRS PRN PO PAIN / TEMP Last administered on 04/27/17 09:33; Start 04/25/17 at 12:15; Stop 04/30/17 at 15:39; Status DC Calcium Polycarbophil (Fibercon) 1,250 mg DAILY PO Last administered on 08:21; Start 04/26/17 at 09:00; Stop 04/30/17 at 15:39; Status DC Docusate Sodium (Colace) 100 mg PRN DAILY PRN PO CONSTIPATION; Start 04/25/17 at 12:15; Stop 04/30/17 at 15:39; Status DC Enoxaparin Sodium (Lovenox) 40 mg DAILY06 SQ ; Start 04/26/17 at 06:00; Status Cancel Guaifenesin (Mucinex Er) 600 mg PRN Q8HRS PRN PO COUGH; Start 04/25/17 at 12:15 ; Stop 04/30/17 at 15:39; Status DC Levothyroxine Sodium (Synthroid) 75 mcg DAILY06 PO Last administered on 05:20; Start 04/26/17 at 06:00; Stop 04/30/17 at 15:39; Status DC Loperamide HCl (Imodium) 2 mg QIDPRN PRN PO DIARRHEA; Start 04/25/17 at 12:15; Stop 04/30/17 at 15:39; Status DC Magnesium Oxide (Magnesium Oxide) 400 mg TIDWMEALS PO Last administered on 04/30 13:06; Start 04/25/17 at 17:00; Stop 04/30/17 at 15:39; Status DC Metformin HCl (Glucophage) 1,000 mg BIDWMEALS PO Last administered on 08:22; Start 04/25/17 at 17:00; Stop 04/30/17 at 15:39; Status DC Phenytoin Sodium (Dilantin) 200 mg QHS PO ; Start 04/25/17 at 21:00; Status UNV Polyethylene Glycol (miraLAX) 17 gm PRN DAILY PRN PO CONSTIPATION; Start at 12:15; Stop 04/30/17 at 15:39; Status DC Potassium Chloride (Klor-Con) 10 meq 3X/WEEK PO Last administered on 04/29/17 07:56; Start 04/27/17 at 09:00; Stop 04/30/17 at 15:39; Status DC Pregabalin (Lyrica) 75 mg QHS PO Last administered on 04/29/17 20:17; Start at 21:00; Stop 04/30/17 at 15:39; Status DC Atorvastatin Calcium (Lipitor) 80 mg QHS PO Last administered on 04/29/17 20: 12; Start 04/25/17 at 21:00; Stop 04/30/17 at 15:39; Status DC Vitamin D (Vitamin D3) 2,000 unit DAILY PO Last administered on 04/30/17 08:22 ; Start 04/26/17 at 09:00; Stop 04/30/17 at 15:39; Status DC Non-Formulary Medication 2 puff PRN Q4HRS PRN INH SHORTNESS OF BREATH; Start at 12:15; Status UNV Lactobacillus Acidophilus (Bacid, Lisy-Bid) 1 tab DAILY PO Last administered on 04/30/17 08:24; Start 04/26/17 at 09:00; Stop 04/30/17 at 15:39; Status DC Al Hydroxide/Mg Hydroxide (Mylanta Plus Xs) 15 ml PRN AFTMEALHC PRN PO DYSPEPSIA; Start 04/25/17 at 12:30; Stop 04/30/17 at 15:39; Status DC Magnesium Hydroxide (Milk Of Magnesia) 2,400 mg PRN QHS PRN PO CONSTIPATION; Start 04/25/17 at 12:30; Stop 04/30/17 at 15:39; Status DC Phenytoin Sodium (Dilantin) 200 mg QHS PO Last administered on 04/29/17 20:10 ; Start 04/25/17 at 21:00; Stop 04/30/17 at 15:39; Status DC Levothyroxine Sodium (Synthroid) 75 mcg 1X ONCE PO Last administered on 16:39; Start 04/25/17 at 16:00; Stop 04/25/17 at 16:01; Status DC Albuterol/ Ipratropium (Duoneb) 3 ml PRN Q4HRS PRN NEB SHORTNESS OF BREATH; Start 04/25/17 at 12:30; Stop 04/30/17 at 15:39; Status DC Trazodone HCl (Desyrel) 50 mg QHS PO Last administered on 04/29/17 20:09; Start 04/25/17 at 21:00; Stop 04/30/17 at 15:39; Status DC Trazodone HCl (Desyrel) 50 mg PRN QHS PRN PO INSOMNIA, MAY REPEAT X1; Start at 19:00; Stop 04/30/17 at 15:39; Status DC Duloxetine HCl (Cymbalta) 30 mg DAILY PO Last administered on 04/28/17 07:49; Start 04/26/17 at 09:00; Stop 04/28/17 at 10:00; Status DC Duloxetine HCl (Cymbalta) 60 mg DAILY PO Last administered on 04/30/17 08:22; Start 04/29/17 at 09:00; Stop 04/30/17 at 15:39; Status DC Divalproex Sodium (Depakote Sprinkles) 500 mg BID PO Last administered on 08:22; Start 04/26/17 at 21:00; Stop 04/30/17 at 10:52; Status DC Divalproex Sodium (Depakote Sprinkles) 750 mg BID PO ; Start 04/30/17 at 21:00; Stop 04/30/17 at 21:00; Status DC Active Scripts Active Reported Trazodone Hcl 50 Mg Tablet 50 Mg PO PRN QHS PRN Trazodone Hcl 50 Mg Tablet 50 Mg PO QHS Risperidone 4 Mg Tablet 4 Mg PO HS Duloxetine Hcl 60 Mg Capsule.dr 60 Mg PO DAILY Miralax (Polyethylene Glycol 3350) 17 Gm Powd.pack 17 Gm PO PRN DAILY PRN Combivent Respimat Inhal (Ipratropium/Albuterol Sulfate) 4 Gm Aer.w.adap 2 Puff INH PRN Q4HRS PRN Mucinex (Guaifenesin) 600 Mg Tablet.er 600 Mg PO PRN Q8HRS PRN Imodium A-D (Loperamide HCl) 2 Mg Capsule 2 Mg PO PRN QID PRN Fibercon (Calcium Polycarbophil) 625 Mg Tablet 1,250 Mg PO DAILY Clonazepam 0.5 Mg Tablet 0.125 Mg PO HS Probiotic (Lactobacillus Acidophilus) 1 Each Capsule 1 Tab PO DAILY Levemir (Insulin Detemir) 100 Unit/1 Ml Vial 35 Unit SQ HS Levemir (Insulin Detemir) 100 Unit/1 Ml Vial 10 Unit SQ DAILYWLUN Magnesium Oxide 400 Mg Tablet 400 Mg PO TIDWMEALS Advanced Antacid Liquid (Mag Hydrox/Al Hydrox/Simeth) 355 Ml Oral.susp 15 Ml PO PRN AFTMEALHC PRN Colace (Docusate Sodium) 100 Mg Capsule 100 Mg PO PRN DAILY PRN Depakote Sprinkle (Divalproex Sodium) 125 Mg Cap.sprink 500 Mg PO BID Risperidone 0.5 Mg Tablet 0.5 Mg PO HS give with 4 mg dose to make 4.5 mg dose Novolog Flexpen (Insulin Aspart) 100 Unit/1 Ml Insuln.pen 10 Unit SQ TIDWMEALS Sliding Scale: Blood Glucose: < 70 follow Hypoglycemia protocol 70-150 = 0 units if Eating, 0 Units if not eating 151-200 = 2 Units if Eating, 0 Units if not eating 201-250 = 3 Units if Eating, 0 Units if not eating 251-300 = 4 Units if Eating, 2 Units if not eating 301-350 = 5 Units if eating, 3 Units if not eating > or = to 351 Call provider for additional orders Buspirone Hcl 5 Mg Tablet 5 Mg PO TID Do not administer with grapefruit juice Phenytoin 50 Mg Tab.chew 200 Mg PO QHS Administer with HS dose of 300mg for total HS dose of 350mg Milk Of Magnesia (Magnesium Hydroxide) 2,400 Mg/10 Ml Oral.susp 2,400 Mg PO PRN QHS PRN Tylenol (Acetaminophen) 325 Mg Tablet 650 Mg PO PRN Q4HRS PRN Max Acetaminophen dose is 4000mg in 24 hours from all sources for adults Vitamin D3 (Cholecalciferol (Vitamin D3)) 1,000 Unit Capsule 2,000 Unit PO DAILY Levothyroxine Sodium 75 Mcg Tablet 75 Mcg PO DAILY06 Administer on an empty stomach: 1 hour before or 2 hours after a meal Mirtazapine 30 Mg Tablet 15 Mg PO QHS Clonazepam 0.5 Mg Tablet 0.25 Mg PO PRN Q6HRS PRN Lyrica (Pregabalin) 75 Mg Capsule 75 Mg PO QHS Metformin Hcl 500 Mg Tablet 1,000 Mg PO BIDWMEALS Give with meals Potassium Chloride 10 Meq Tab.er.prt 10 Meq PO 3X/WEEK On Thursday and Thursday Atorvastatin Calcium 80 Mg Tablet 80 Mg PO QHS KIT BUENO MD May 03, 2017 20:22
== END 2017-04-30 15:39 | DRG 885 ==
LOC: EEVIPCON 14:06 → ER 14:06 → UNDOADMIN 16:40 → GEROPSY 16:40
PROVIDERS: ADMIT Psychiatry & Neurology Psychiatry; ATTEND Psychiatry & Neurology Psychiatry
DX: F31.77 Bipolar disorder, in partial remission, most recent episode mixed (principal); R44.0 Auditory hallucinations; E03.9 Hypothyroidism, unspecified; E11.9 Type 2 diabetes mellitus without complications; F41.9 Anxiety disorder, unspecified; F60.9 Personality disorder, unspecified; G40.909 Epilepsy, unspecified, not intractable, without status epilepticus; E83.42 Hypomagnesemia; M19.90 Unspecified osteoarthritis, unspecified site; I10 Essential (primary) hypertension; Z83.3 Family history of diabetes mellitus; Z90.49 Acquired absence of other specified parts of digestive tract; Z88.5 Allergy status to narcotic agent; Z88.2 Allergy status to sulfonamides; Z79.4 Long term (current) use of insulin; F63.9 Impulse disorder, unspecified
CPT/HCPCS: 36415; 80053; 80061; 80164; 80185; 81001; 82306; 82607; 82947; 83036; 83540; 83550; 83735; 84436; 84443; 84480; 85027; 86592; 86593; 87086; 93005; 94640; G0481; J1650; J1815; 99285-25

== ENCOUNTER 2018-02-02 19:41 | Inpatient (IN) | payer MEDICARE, OTHER ==
[~2018-02-02] VITALS: Ht 154.9 cm; Wt 117.2 kg
[~2018-02-02 19:41] MED LIST changes: +CALC625T PO; +CINN500C2 PO; +DULO60CA44 PO; +ENOX40DI SQ; +GLIM1TAB PO; +GUAI600T47 PO; +IPRA4AER INH; +LACT1CAP6 PO; +LOPE2CAP88 PO; -METF500T4 PO; +METF500T5 PO; +POLY17PO5 PO; +TRAZ50TA15 PO
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
[2018-02-02 20:57] LABS: BASO # 0.1 x10^3/uL (0.0-0.2); BASO % 1 % (0-3); EOS # 0.2 x10^3/uL (0.0-0.7); EOS % 2 % (0-3); HEMATOCRIT 39.5 % (36.0-47.0); HEMOGLOBIN 13.4 g/dL (12.0-15.5); LYMPH # 3.7 x10^3/uL (1.0-4.8); LYMPH % 44 % (24-48); MEAN CORPUSCULAR HEMOGLOBIN 31 pg (25-35); MEAN CORPUSCULAR HGB CONC 34 g/dL (31-37); MEAN CORPUSCULAR VOLUME 91 fL (79-100); MONO # 0.8 x10^3/uL (0.0-1.1); MONO % 9 % (0-9); NEUT # 3.7 x10^3uL (1.8-7.7); NEUT % 44 % (31-73); PLATELET COUNT 276 x10^3/uL (140-400); RED BLOOD COUNT 4.36 x10^6/uL (3.50-5.40); WHITE BLOOD COUNT 8.4 x10^3/uL (4.0-11.0)
[2018-02-02 21:03] LABS: CLARITY,URINE CLEAR; COLOR,URINE STRAW; GLUCOSE,URINE NEG (NEG)
[2018-02-02 21:04] LABS: BACTERIA,URINE 0 /HPF (0-FEW); BILIRUBIN,URINE NEG (NEG); NITRITE,URINE NEG (NEG); SQUAMOUS EPITHELIAL CELL,UR OCC /LPF; UROBILINOGEN,URINE 0.2 mg/dL (0.2 mg/dL); WBC,URINE OCC /HPF (0-4)
[2018-02-02 21:07] LABS: BARBITURATES NEG (NEG); BENZODIAZEPINES POS (NEG); CANNABINOIDS NEG (NEG); COCAINE NEG (NEG); METHADONE NEG (NEG); OPIATES NEG (NEG); PHENCYCLIDINE NEG (NEG)
[2018-02-02 21:09] LABS: AMPHETAMINE/METHAMPHETAMINE NEG (NEG)
[2018-02-02 21:11] LABS: ALBUMIN 3.1 g/dL (3.4-5.0); ALBUMIN/GLOBULIN RATIO 0.8 (1.0-1.7); CALCIUM 9.3 mg/dL (8.5-10.1); CREATININE 0.9 mg/dL (0.6-1.0); GFR 63.2; MAGNESIUM 1.6 mg/dL (1.8-2.4); POTASSIUM 3.8 mmol/L (3.5-5.1); TOTAL BILIRUBIN 0.1 mg/dL (0.2-1.0)
--- NOTE | 2018-02-02 22:41 | EKG ---
[address] [address] Test Date: 2018-02-02 Test Time: 20:11:19 Pat Name: YAMILET CAR Department: Room: Gender: F Slide Attendant: : 1955 Requested By: ELMER SNYDER Order Number: [id number] Reading MD: Damian Shaw Measurements Intervals [place] Rate: 88 P: 38 DC: 166 QRS: -8 QRSD: 86 T: 47 QT: 346 QTc: 422 Interpretive Statements SINUS RHYTHM LEFTWARD AXIS Electronically Signed On 02-15-2018 9:55:40 CDT by Damian Shaw
[2018-02-03 01:44] VITALS: BP 125/80
[2018-02-03] MEDS ORDERED: MAGNESIUM HYDROXIDE 2,400 MG/30 ML ORAL.SUSP. PO PRN (02:15)
[2018-02-03] MEDS ORDERED: ACETAMINOPHEN 325 MG TABLET PO PRN ×2 (02:15→05:00)
[2018-02-03] MEDS ORDERED: MAG HYDROX/AL HYDROX/SIMETH 30 ML ORAL.SUSP PO PRN (02:15)
[2018-02-03] MEDS ORDERED: METHYL SALICYLATE/MENTHOL TOPICAL OINTMENT 29GM TUBE. TP PRN (02:15)
[2018-02-03] MEDS ORDERED: MELO7.5T5 PO (04:08)
[2018-02-03] MEDS ORDERED: VALP250C2 PO (04:08)
[2018-02-03] MEDS ORDERED: BUTA1TAB23 PO (04:08)
[2018-02-03] MEDS ORDERED: CINN500C2 PO (04:08)
[2018-02-03] MEDS ORDERED: TRAM50TA PO (04:08)
[2018-02-03] MEDS ORDERED: OMEG1CAP30 PO (04:08)
[2018-02-03] MEDS ORDERED: ONDA4TAB7 PO (04:08)
[2018-02-03] MEDS ORDERED: MENT118G TP (04:08)
[2018-02-03] MEDS ORDERED: PREG50CA PO (04:08)
[2018-02-03] MEDS ORDERED: FURO-68 PO (04:08)
[2018-02-03] MEDS ORDERED: PHEN300C4 PO (04:08)
[2018-02-03] MEDS ORDERED: ALPR0.5T PO ×2 (04:08)
[2018-02-03] MEDS ORDERED: ONDANSETRON ODT 4 MG TAB.RAPDIS PO PRN (05:00)
[2018-02-03] MEDS ORDERED: NON FORMULARY ITEM (Menthol (Biofreeze) 1 APP) TP PRN (05:00)
[2018-02-03] MEDS ORDERED: DOCUSATE SODIUM 100 MG CAPSULE PO PRN (05:00)
[2018-02-03] MEDS ORDERED: traMADol 50 MG TABLET PO PRN (05:00)
[2018-02-03] MEDS ORDERED: BUTALB/APAP/CAFEIN 50/325/40MG TABLET. PO PRN (05:00)
[2018-02-03] MEDS ORDERED: NON FORMULARY ITEM (Ipratropium/Albuterol Sulfate (Combivent Respimat Inhal) 2 PUFF) INH PRN (05:00)
[2018-02-03] MEDS: LEVOTHYROXINE 75 MCG TABLET PO SCH (06:00)
[2018-02-03 06:26] VITALS: BP 148/76
[2018-02-03] MEDS ORDERED: IPRATRPIUM/ALBUTEROL 0.5/2.5MG 3 ML NEBU. NEB PRN (07:15)
[2018-02-03 08:19] LABS: PHENY 3.1 mcg/mL (10.0-20.0)
[2018-02-03] MEDS: busPIRone 5 MG TABLET. PO SCH ×3 (08:54→19:37)
[2018-02-03] MEDS: CALCIUM POLYCARBOPHIL 625 MG TABLET PO SCH (08:54)
[2018-02-03] MEDS: OMEGA-3 FATTY ACIDS/FISH OIL 1,000 MG CAPSULE. PO SCH (08:55)
[2018-02-03] MEDS: PREGABALIN 50 MG CAPSULE PO SCH ×2 (08:55→19:38)
[2018-02-03] MEDS: MELOXICAM 7.5 MG TABLET PO SCH (08:55)
[2018-02-03] MEDS: ALPRAZolam 0.5 MG TABLET PO PRN (08:55)
[2018-02-03] MEDS: DULoxetine HCL 60 MG CAPSULE.DR PO SCH (08:55)
[2018-02-03] MEDS: LACTOBACILLUS RHAMNOSUS GG 1 CAPSULE. PO SCH (08:55)
[2018-02-03] MEDS: VALPROIC ACID 250 MG CAPSULE. PO SCH ×2 (08:55→19:37)
[2018-02-03] MEDS: FUROSEMIDE 40 MG TABLET PO SCH (08:55)
[2018-02-03] MEDS: POTASSIUM CHLORIDE 10 MEQ TABLET.ER. PO SCH (08:55)
[2018-02-03] MEDS: metFORMIN 500 MG TABLET PO SCH ×2 (08:56→18:13)
[2018-02-03] MEDS: MAGNESIUM OXIDE 400 MG TABLET PO SCH ×3 (08:56→18:13)
[2018-02-03] MEDS: INSULIN GLARGINE 300 UNITS/3 ML INSULN.PEN. SQ SCH ×2 (08:59→19:40)
[2018-02-03] MEDS ORDERED: NON FORMULARY ITEM (Cinnamon Bark (Cinnamon) 1,000 MG) PO SCH (09:00)
[2018-02-03 14:33] LABS: THYROID STIM HORMONE (TSH) 3.733 uIU/mL (0.358-3.740)
[2018-02-03 15:56] VITALS: BP 158/71
[2018-02-03 19:12] LABS: T3 TOTAL 108 ng/dL (71-180); THYROXINE 6.2 ug/dL (4.5-12.0)
[2018-02-03] MEDS: risperiDONE 2 MG TABLET. PO SCH (19:38)
[2018-02-03] MEDS: PHENYTOIN SODIUM EXTENDED 100 MG CAPSULE PO SCH (19:38)
[2018-02-03] MEDS: ALPRAZolam 0.5 MG TABLET PO SCH (19:39)
[2018-02-03] MEDS: ATORVASTATIN CALCIUM 20 MG TABLET PO SCH (19:41)
--- NOTE | 2018-02-03 20:35 | PDOC ---
Exam Note: Jonathan Note: Please also refer to the separate dictated note~for this date of service dictated separately.~Patient seen individually. Discussed the patient with Nursing staff reviewed the chart.~Reviewed interim history and current functioning. Reviewed vital signs,~Labs/ Radiology~and current medications noted below. Continue current treatment with the changes noted in the dictated addendum note Assessment: Vital Signs: Vital Signs Date Time Temp Pulse Resp B/P (MAP) Pulse Ox O2 Delivery O2 Flow Rate FiO2 02/03/18 15:56 98.5 83 18 158/71 (100) 96 02/03/18 00:45 Room Air I&O Intake and Output 02/03/18 07:00 Intake Total 240 ml Balance 240 ml Intake Oral 240 ml Labs: Laboratory Tests Test 02/03/18 07:34 02/03/18 07:43 02/03/18 11:33 02/03/18 17:02 Iron Level 76 ug/dL (50-170) Total Iron Binding Capacity 308 ug/dL (250-450) Iron Saturation 25 % (15-34) Triglycerides Level 280 mg/dL (0-150) H Cholesterol Level 177 mg/dL (0-200) LDL Cholesterol, Calculated 84 mg/dL (0-100) VLDL Cholesterol, Calculated 56 mg/dL (0-40) H Non-HDL Cholesterol Calculated 140 mg/dL (0-129) H HDL Cholesterol 37 mg/dL (40-60) L Cholesterol/HDL Ratio 4.0 Vitamin B12 Level 433 pg/mL (247-911) 25-Hydroxy Vitamin D Total 32.6 ng/mL (30-100) Thyroid Stimulating Hormone (TSH) 3.733 uIU/mL (0.358-3.740) Thyroxine (T4) 6.2 ug/dL (4.5-12.0) Total Triiodothyronine (TT3) 108 ng/dL (71-180) Phenytoin (Dilantin) Level 3.1 mcg/mL (10.0-20.0) L Phenytoin Last Dose Date 02/01/18 Phenytoin Last Dose Time 2100 Rapid Plasma Reagin Pending Glucose (Fingerstick) 203 mg/dL (70-99) H 271 mg/dL (70-99) H 204 mg/dL (70-99) H Current Medications: Meds: Current Medications Acetaminophen (Tylenol) 650 mg PRN Q6HRS PRN PO PAIN / TEMP; Start 02/03/18 at 02:15 Multi-Ingredient Ointment (Analgesic [place]) 1 jurgen PRN QID PRN TP MUSCLE PAIN; Start 02/03/18 at 02:15 Al Hydroxide/Mg Hydroxide (Mylanta Plus Xs) 15 ml PRN AFTMEALHC PRN PO DYSPEPSIA; Start 02/03/18 at 02:15 Magnesium Hydroxide (Milk Of Magnesia) 2,400 mg PRN QHS PRN PO CONSTIPATION; Start 02/03/18 at 02:15 Acetaminophen (Tylenol) 650 mg PRN Q4HRS PRN PO PAIN / TEMP; Start 02/03/18 at 05:00 Alprazolam (Xanax) 0.5 mg PRN TID PRN PO ANXIETY / AGITATION Last administered on 02/03/18 08:55; Start 02/03/18 at 05:00 Alprazolam (Xanax) 0.5 mg QHS PO Last administered on 02/03/18 19:39; Start at 21:00 Buspirone HCl (Buspar) 5 mg TID PO Last administered on 02/03/18 19:37; Start 02/03/18 at 09:00 Acetaminophen/ Butalbital/ Caffeine (Fioricet) 1 tab PRN Q8HRS PRN PO HEADACHE ; Start 02/03/18 at 05:00 Calcium Polycarbophil (Fibercon) 625 mg DAILY PO Last administered on at 08:54; Start 02/03/18 at 09:00 Docusate Sodium (Colace) 100 mg PRN DAILY PRN PO CONSTIPATION; Start 02/03/18 at 05:00 Duloxetine HCl (Cymbalta) 60 mg DAILY PO Last administered on 02/03/18 08:55; Start 02/03/18 at 09:00 Furosemide (Lasix) 40 mg DAILY PO Last administered on 02/03/18 08:55; Start 02/03/18 at 09:00 Levothyroxine Sodium (Synthroid) 75 mcg DAILY06 PO Last administered on at 06:00; Start 02/03/18 at 06:00 Magnesium Oxide (Magnesium Oxide) 400 mg TIDWMEALS PO Last administered on 02/03 18:13; Start 02/03/18 at 08:00 Meloxicam (Mobic) 7.5 mg DAILY PO Last administered on 02/03/18 08:55; Start 02/03/18 at 09:00 Metformin HCl (Glucophage) 1,000 mg BIDWMEALS PO Last administered on 18:13; Start 02/03/18 at 08:00 Potassium Chloride (Klor-Con) 10 meq DAILY PO Last administered on 02/03/18 08 :55; Start 02/03/18 at 09:00 Pregabalin (Lyrica) 50 mg BID PO Last administered on 02/03/18 19:38; Start at 09:00 Risperidone (RisperDAL) 4 mg HS PO Last administered on 02/03/18 19:38; Start 02/03/18 at 21:00 Tramadol HCl (Ultram) 50 mg PRN Q4HRS PRN PO PAIN; Start 02/03/18 at 05:00 Valproic Acid (Depakene) 250 mg BID PO Last administered on 02/03/18 19:37; Start 02/03/18 at 09:00 Atorvastatin Calcium (Lipitor) 80 mg QHS PO Last administered on 02/03/18 19: 41; Start 02/03/18 at 21:00 Non-Formulary Medication (Cinnamon Bark (Cinnamon)) 1,000 mg DAILY PO ; Start at 09:00; Status UNV Insulin Glargine (Lantus) 40 units HS SQ Last administered on 02/03/18 19:40; Start 02/03/18 at 21:00 Insulin Glargine (Lantus) 50 units DAILYWBKFT SQ Last administered on 08:59; Start 02/03/18 at 08:00 Non-Formulary Medication (Ipratropium/ Albuterol Sulfate (Combivent Respimat Inhal)) 2 puff PRN Q4HRS PRN INH SHORTNESS OF BREATH; Start 02/03/18 at 05:00; Stop 02/03/18 at 07:10; Status DC Lactobacillus Rhamnosus (Culturelle) 1 cap DAILY PO Last administered on 08:55; Start 02/03/18 at 09:00 Non-Formulary Medication (Menthol (Biofreeze)) 1 jurgen PRN QID PRN TP MUSCLE PAIN ; Start 02/03/18 at 05:00; Stop 02/03/18 at 07:08; Status DC Fish Oil (Fish Oil) 1,000 mg DAILY PO Last administered on 02/03/18at 08:55; Start 02/03/18 at 09:00 Ondansetron HCl (Zofran Odt) 4 mg PRN Q6HRS PRN PO NAUSEA/VOMITING; Start 02/03 at 05:00 Phenytoin Sodium (Dilantin) 300 mg QHS PO Last administered on 02/03/18at 19:38 ; Start 02/03/18 at 21:00 Albuterol/ Ipratropium (Duoneb) 3 ml PRN Q4HRS PRN NEB SHORTNESS OF BREATH; Start 02/03/18 at 07:15 Active Scripts Active Reported Xanax (Alprazolam) 0.5 Mg Tablet 0.5 Mg PO PRN TID PRN Tramadol Hcl (Tramadol HCl) 50 Mg Tablet 50 Mg PO PRN Q4HRS PRN Blmtke-Nkefzplx-Bpxp 50-325-40 (Butalb/Acetaminophen/Caffeine) 1 Each Tablet 1 Tab PO PRN Q8HRS PRN Xanax (Alprazolam) 0.5 Mg Tablet 0.5 Mg PO QHS Valproic Acid 250 Mg Capsule 250 Mg PO BID Biofreeze (Menthol) 118 Ml Gel..ml. 1 Jurgen TP PRN QID PRN Zofran (Ondansetron Hcl) 4 Mg Tablet 4 Mg PO PRN Q6HRS PRN Mobic (Meloxicam) 7.5 Mg Tablet 7.5 Mg PO DAILY Lasix (Furosemide) 40 Mg Tablet 40 Mg PO DAILY Fish Oil 1,000 Mg Softgel ([place]-3/Dha/Epa/Fish Oil) 1 Each Capsule 1 Cap PO DAILY Cinnamon (Cinnamon Bark) 500 Mg Capsule 1,000 Mg PO DAILY Phenytoin Sodium Extended 300 Mg Capsule 300 Mg PO QHS Lyrica (Pregabalin) 50 Mg Capsule 50 Mg PO BID Duloxetine Hcl 60 Mg Capsule.dr 60 Mg PO DAILY Combivent Respimat Inhal (Ipratropium/Albuterol Sulfate) 4 Gm Aer.w.adap 2 Puff INH PRN Q4HRS PRN Fibercon (Calcium Polycarbophil) 625 Mg Tablet 625 Mg PO DAILY Probiotic (Lactobacillus Acidophilus) 1 Each Capsule 1 Tab PO DAILY Levemir (Insulin Detemir) 100 Unit/1 Ml Vial 40 Unit SQ HS Levemir (Insulin Detemir) 100 Unit/1 Ml Vial 50 Unit SQ DAILYWBKFT Magnesium Oxide 400 Mg Tablet 400 Mg PO TIDWMEALS Colace (Docusate Sodium) 100 Mg Capsule 100 Mg PO PRN DAILY PRN Risperidone 0.5 Mg Tablet 4 Mg PO HS give with 4 mg dose to make 4.5 mg dose Buspirone Hcl 5 Mg Tablet 5 Mg PO TID Do not administer with grapefruit juice Tylenol (Acetaminophen) 325 Mg Tablet 650 Mg PO PRN Q4HRS PRN Max Acetaminophen dose is 4000mg in 24 hours from all sources for adults Levothyroxine Sodium 75 Mcg Tablet 75 Mcg PO DAILY06 Administer on an empty stomach: 1 hour before or 2 hours after a meal Metformin Hcl 500 Mg Tablet 1,000 Mg PO BIDWMEALS Give with meals Potassium Chloride 10 Meq Tab.er.prt 10 Meq PO DAILY On Thursday and Thursday Atorvastatin Calcium 80 Mg Tablet 80 Mg PO QHS I have reviewed the current psychotropics carefully including drug interactions. Risk benefit ratio favors no change other than as noted in my dictated progress note. Diagnosis: Problems: (1) Suicidal ideation (2) Medical clearance for psychiatric admission (3) Suicidal ideation (4) Anxiety disorder (5) Suicidal ideations (6) Bipolar affective disorder, mixed (7) Homicidal ideation (8) Borderline intellectual disability (9) Impulse control disorder KIT BUENO MD Feb 03, 2018 20:35
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
[2018-02-04 02:08] LABS: HEMOGLOBIN A1C 7.7 % (4.8-5.6)
[2018-02-04] MEDS: LEVOTHYROXINE 75 MCG TABLET PO SCH (05:06)
[2018-02-04 06:20] VITALS: BP 130/70
[2018-02-04 07:56] LABS: VAL ACID 16 mcg/mL (50-100)
[2018-02-04] MEDS: DULoxetine HCL 60 MG CAPSULE.DR PO SCH (08:36)
[2018-02-04] MEDS: OMEGA-3 FATTY ACIDS/FISH OIL 1,000 MG CAPSULE. PO SCH (08:36)
[2018-02-04] MEDS: metFORMIN 500 MG TABLET PO SCH ×2 (08:37→17:36)
[2018-02-04] MEDS: LACTOBACILLUS RHAMNOSUS GG 1 CAPSULE. PO SCH (08:37)
[2018-02-04] MEDS: VALPROIC ACID 250 MG CAPSULE. PO SCH ×2 (08:37→20:06)
[2018-02-04] MEDS: POTASSIUM CHLORIDE 10 MEQ TABLET.ER. PO SCH (08:37)
[2018-02-04] MEDS: MELOXICAM 7.5 MG TABLET PO SCH (08:37)
[2018-02-04] MEDS: MAGNESIUM OXIDE 400 MG TABLET PO SCH ×3 (08:37→17:36)
[2018-02-04] MEDS: CALCIUM POLYCARBOPHIL 625 MG TABLET PO SCH (08:37)
[2018-02-04] MEDS: busPIRone 5 MG TABLET. PO SCH ×3 (08:37→20:06)
[2018-02-04] MEDS: FUROSEMIDE 40 MG TABLET PO SCH (08:37)
[2018-02-04] MEDS: INSULIN GLARGINE 300 UNITS/3 ML INSULN.PEN. SQ SCH ×2 (08:43→20:07)
[2018-02-04] MEDS: PREGABALIN 50 MG CAPSULE PO SCH ×2 (09:28→20:10)
[2018-02-04] MEDS: ALPRAZolam 0.5 MG TABLET PO PRN (09:28)
[2018-02-04 16:40] VITALS: BP 148/84
[2018-02-04] MEDS: risperiDONE 2 MG TABLET. PO SCH (20:05)
[2018-02-04] MEDS: ATORVASTATIN CALCIUM 20 MG TABLET PO SCH (20:06)
[2018-02-04] MEDS: PHENYTOIN SODIUM EXTENDED 100 MG CAPSULE PO SCH (20:06)
[2018-02-04] MEDS: ALPRAZolam 0.5 MG TABLET PO SCH (20:10)
--- NOTE | 2018-02-04 21:19 | PDOC ---
Exam Note: Jonathan Note: Please also refer to the separate dictated note~for this date of service dictated separately.~Patient seen individually. Discussed the patient with Nursing staff reviewed the chart.~Reviewed interim history and current functioning. Reviewed vital signs,~Labs/ Radiology~and current medications noted below. Continue current treatment with the changes noted in the dictated addendum note Assessment: Vital Signs: Vital Signs Date Time Temp Pulse Resp B/P (MAP) Pulse Ox O2 Delivery O2 Flow Rate FiO2 02/04/18 16:40 97.6 101 22 148/84 (105) 97 02/03/18 00:45 Room Air I&O Intake and Output 02/04/18 07:00 Intake Total 1080 ml Balance 1080 ml Intake Oral 1080 ml # Voids 1 Labs: Laboratory Tests Test 02/04/18 07:30 02/04/18 07:32 02/04/18 11:52 02/04/18 16:34 Valproic Acid Level 16 mcg/mL (50-100) L Valproic Acid Last Dose Date 02/03/18 Valproic Acid Last Dose Time 2100 Glucose (Fingerstick) 196 mg/dL (70-99) H 225 mg/dL (70-99) H 189 mg/dL (70-99) H Test 02/04/18 19:55 Glucose (Fingerstick) 261 mg/dL (70-99) H Current Medications: Meds: Current Medications Acetaminophen (Tylenol) 650 mg PRN Q6HRS PRN PO PAIN / TEMP; Start 02/03/18 at 02:15 Multi-Ingredient Ointment (Analgesic [place]) 1 jurgen PRN QID PRN TP MUSCLE PAIN; Start 02/03/18 at 02:15 Al Hydroxide/Mg Hydroxide (Mylanta Plus Xs) 15 ml PRN AFTMEALHC PRN PO DYSPEPSIA; Start 02/03/18 at 02:15 Magnesium Hydroxide (Milk Of Magnesia) 2,400 mg PRN QHS PRN PO CONSTIPATION; Start 02/03/18 at 02:15 Acetaminophen (Tylenol) 650 mg PRN Q4HRS PRN PO PAIN / TEMP; Start 02/03/18 at 05:00 Alprazolam (Xanax) 0.5 mg PRN TID PRN PO ANXIETY / AGITATION Last administered on 02/04/18at 09:28; Start 02/03/18 at 05:00 Alprazolam (Xanax) 0.5 mg QHS PO Last administered on 02/04/18 20:10; Start at 21:00 Buspirone HCl (Buspar) 5 mg TID PO Last administered on 02/04/18 08:37; Start 02/03/18 at 09:00; Stop 02/04/18 at 13:41; Status DC Acetaminophen/ Butalbital/ Caffeine (Fioricet) 1 tab PRN Q8HRS PRN PO HEADACHE ; Start 02/03/18 at 05:00 Calcium Polycarbophil (Fibercon) 625 mg DAILY PO Last administered on 08:37; Start 02/03/18 at 09:00 Docusate Sodium (Colace) 100 mg PRN DAILY PRN PO CONSTIPATION; Start 02/03/18 at 05:00 Duloxetine HCl (Cymbalta) 60 mg DAILY PO Last administered on 02/04/18 08:36; Start 02/03/18 at 09:00 Furosemide (Lasix) 40 mg DAILY PO Last administered on 02/04/18 08:37; Start 02/03/18 at 09:00 Levothyroxine Sodium (Synthroid) 75 mcg DAILY06 PO Last administered on 05:06; Start 02/03/18 at 06:00 Magnesium Oxide (Magnesium Oxide) 400 mg TIDWMEALS PO Last administered on 02/04 17:36; Start 02/03/18 at 08:00 Meloxicam (Mobic) 7.5 mg DAILY PO Last administered on 02/04/18 08:37; Start 02/03/18 at 09:00 Metformin HCl (Glucophage) 1,000 mg BIDWMEALS PO Last administered on 17:36; Start 02/03/18 at 08:00 Potassium Chloride (Klor-Con) 10 meq DAILY PO Last administered on 02/04/18 08 :37; Start 02/03/18 at 09:00 Pregabalin (Lyrica) 50 mg BID PO Last administered on 02/04/18 20:10; Start at 09:00 Risperidone (RisperDAL) 4 mg HS PO Last administered on 4/26/18at 20:05; Start 02/03/18 at 21:00 Tramadol HCl (Ultram) 50 mg PRN Q4HRS PRN PO PAIN; Start 02/03/18 at 05:00 Valproic Acid (Depakene) 250 mg BID PO Last administered on 02/04/18at 20:06; Start 02/03/18 at 09:00 Atorvastatin Calcium (Lipitor) 80 mg QHS PO Last administered on 02/04/18 20: 06; Start 02/03/18 at 21:00 Non-Formulary Medication (Cinnamon Bark (Cinnamon)) 1,000 mg DAILY PO ; Start at 09:00; Status UNV Insulin Glargine (Lantus) 40 units HS SQ Last administered on 02/04/18at 20:07; Start 02/03/18 at 21:00 Insulin Glargine (Lantus) 50 units DAILYWBKFT SQ Last administered on at 08:43; Start 02/03/18 at 08:00 Non-Formulary Medication (Ipratropium/ Albuterol Sulfate (Combivent Respimat Inhal)) 2 puff PRN Q4HRS PRN INH SHORTNESS OF BREATH; Start 02/03/18 at 05:00; Stop 02/03/18 at 07:10; Status DC Lactobacillus Rhamnosus (Culturelle) 1 cap DAILY PO Last administered on at 08:37; Start 02/03/18 at 09:00 Non-Formulary Medication (Menthol (Biofreeze)) 1 jurgen PRN QID PRN TP MUSCLE PAIN ; Start 02/03/18 at 05:00; Stop 02/03/18 at 07:08; Status DC Fish Oil (Fish Oil) 1,000 mg DAILY PO Last administered on 02/04/18at 08:36; Start 02/03/18 at 09:00 Ondansetron HCl (Zofran Odt) 4 mg PRN Q6HRS PRN PO NAUSEA/VOMITING; Start 02/03 at 05:00 Phenytoin Sodium (Dilantin) 300 mg QHS PO Last administered on 02/04/18at 20:06 ; Start 02/03/18 at 21:00 Albuterol/ Ipratropium (Duoneb) 3 ml PRN Q4HRS PRN NEB SHORTNESS OF BREATH; Start 02/03/18 at 07:15 Buspirone HCl (Buspar) 5 mg QID PO Last administered on 02/04/18at 20:06; Start 02/04/18 at 17:00 Active Scripts Active Reported Xanax (Alprazolam) 0.5 Mg Tablet 0.5 Mg PO PRN TID PRN Tramadol Hcl (Tramadol HCl) 50 Mg Tablet 50 Mg PO PRN Q4HRS PRN Vdhjze-Lwcbhwsr-Ejyr 50-325-40 (Butalb/Acetaminophen/Caffeine) 1 Each Tablet 1 Tab PO PRN Q8HRS PRN Xanax (Alprazolam) 0.5 Mg Tablet 0.5 Mg PO QHS Valproic Acid 250 Mg Capsule 250 Mg PO BID Biofreeze (Menthol) 118 Ml Gel..ml. 1 Jurgen TP PRN QID PRN Zofran (Ondansetron Hcl) 4 Mg Tablet 4 Mg PO PRN Q6HRS PRN Mobic (Meloxicam) 7.5 Mg Tablet 7.5 Mg PO DAILY Lasix (Furosemide) 40 Mg Tablet 40 Mg PO DAILY Fish Oil 1,000 Mg Softgel ([place]-3/Dha/Epa/Fish Oil) 1 Each Capsule 1 Cap PO DAILY Cinnamon (Cinnamon Bark) 500 Mg Capsule 1,000 Mg PO DAILY Phenytoin Sodium Extended 300 Mg Capsule 300 Mg PO QHS Lyrica (Pregabalin) 50 Mg Capsule 50 Mg PO BID Duloxetine Hcl 60 Mg Capsule.dr 60 Mg PO DAILY Combivent Respimat Inhal (Ipratropium/Albuterol Sulfate) 4 Gm Aer.w.adap 2 Puff INH PRN Q4HRS PRN Fibercon (Calcium Polycarbophil) 625 Mg Tablet 625 Mg PO DAILY Probiotic (Lactobacillus Acidophilus) 1 Each Capsule 1 Tab PO DAILY Levemir (Insulin Detemir) 100 Unit/1 Ml Vial 40 Unit SQ HS Levemir (Insulin Detemir) 100 Unit/1 Ml Vial 50 Unit SQ DAILYWBKFT Magnesium Oxide 400 Mg Tablet 400 Mg PO TIDWMEALS Colace (Docusate Sodium) 100 Mg Capsule 100 Mg PO PRN DAILY PRN Risperidone 0.5 Mg Tablet 4 Mg PO HS give with 4 mg dose to make 4.5 mg dose Buspirone Hcl 5 Mg Tablet 5 Mg PO TID Do not administer with grapefruit juice Tylenol (Acetaminophen) 325 Mg Tablet 650 Mg PO PRN Q4HRS PRN Max Acetaminophen dose is 4000mg in 24 hours from all sources for adults Levothyroxine Sodium 75 Mcg Tablet 75 Mcg PO DAILY06 Administer on an empty stomach: 1 hour before or 2 hours after a meal Metformin Hcl 500 Mg Tablet 1,000 Mg PO BIDWMEALS Give with meals Potassium Chloride 10 Meq Tab.er.prt 10 Meq PO DAILY On Thursday and Thursday Atorvastatin Calcium 80 Mg Tablet 80 Mg PO QHS I have reviewed the current psychotropics carefully including drug interactions. Risk benefit ratio favors no change other than as noted in my dictated progress note. Diagnosis: Problems: (1) Suicidal ideation (2) Medical clearance for psychiatric admission (3) Suicidal ideation (4) Anxiety disorder (5) Suicidal ideations (6) Homicidal ideation (7) Bipolar affective disorder, mixed (8) Borderline intellectual disability (9) Impulse control disorder KIT BUENO MD Feb 04, 2018 21:19
[2018-02-05] MEDS: LEVOTHYROXINE 75 MCG TABLET PO SCH (05:50)
[2018-02-05 06:05] VITALS: BP 99/56
[2018-02-05] MEDS: VALPROIC ACID 250 MG CAPSULE. PO SCH (08:26)
[2018-02-05] MEDS: busPIRone 5 MG TABLET. PO SCH ×4 (08:27→20:29)
[2018-02-05] MEDS: CALCIUM POLYCARBOPHIL 625 MG TABLET PO SCH (08:27)
[2018-02-05] MEDS: OMEGA-3 FATTY ACIDS/FISH OIL 1,000 MG CAPSULE. PO SCH (08:27)
[2018-02-05] MEDS: DULoxetine HCL 60 MG CAPSULE.DR PO SCH (08:27)
[2018-02-05] MEDS: LACTOBACILLUS RHAMNOSUS GG 1 CAPSULE. PO SCH (08:27)
[2018-02-05] MEDS: MAGNESIUM OXIDE 400 MG TABLET PO SCH ×3 (08:27→17:00)
[2018-02-05] MEDS: FUROSEMIDE 40 MG TABLET PO SCH (08:27)
[2018-02-05] MEDS: POTASSIUM CHLORIDE 10 MEQ TABLET.ER. PO SCH (08:27)
[2018-02-05] MEDS: metFORMIN 500 MG TABLET PO SCH ×2 (08:28→17:00)
[2018-02-05] MEDS: MELOXICAM 7.5 MG TABLET PO SCH (08:28)
[2018-02-05] MEDS: PREGABALIN 50 MG CAPSULE PO SCH ×2 (08:30→20:31)
[2018-02-05] MEDS: ALPRAZolam 0.5 MG TABLET PO PRN (08:30)
[2018-02-05] MEDS: INSULIN GLARGINE 300 UNITS/3 ML INSULN.PEN. SQ SCH ×2 (08:34→20:34)
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
[2018-02-05 16:35] VITALS: BP 139/85
[2018-02-05] MEDS: DIVALPROEX 125 MG CAP.SPRINK PO SCH (20:29)
[2018-02-05] MEDS: ATORVASTATIN CALCIUM 20 MG TABLET PO SCH (20:29)
[2018-02-05] MEDS: ALPRAZolam 0.5 MG TABLET PO SCH (20:29)
[2018-02-05] MEDS: PHENYTOIN SODIUM EXTENDED 100 MG CAPSULE PO SCH (20:29)
[2018-02-05] MEDS: risperiDONE 2 MG TABLET. PO SCH (20:30)
[2018-02-05] MEDS ORDERED: VALPROIC ACID 250 MG CAPSULE. PO SCH (21:00)
--- NOTE | 2018-02-05 23:06 | PDOC ---
Exam Note: Jonathan Note: Please also refer to the separate dictated note~for this date of service dictated separately.~Patient seen individually. Discussed the patient with Nursing staff reviewed the chart.~Reviewed interim history and current functioning. Reviewed vital signs,~Labs/ Radiology~and current medications noted below. Continue current treatment with the changes noted in the dictated addendum note Assessment: Vital Signs: Vital Signs Date Time Temp Pulse Resp B/P (MAP) Pulse Ox O2 Delivery O2 Flow Rate FiO2 02/05/18 16:35 97.8 89 20 139/85 (103) 94 02/03/18 00:45 Room Air I&O Intake and Output 02/05/18 07:00 Intake Total 960 ml Balance 960 ml Intake Oral 960 ml Labs: Laboratory Tests Test 02/05/18 07:38 02/05/18 11:27 02/05/18 16:32 02/05/18 19:20 Glucose (Fingerstick) 177 mg/dL (70-99) H 193 mg/dL (70-99) H 243 mg/dL (70-99) H 366 mg/dL (70-99) H Current Medications: Meds: Current Medications Acetaminophen (Tylenol) 650 mg PRN Q6HRS PRN PO PAIN / TEMP; Start 02/03/18 at 02:15 Multi-Ingredient Ointment (Analgesic [place]) 1 jurgen PRN QID PRN TP MUSCLE PAIN; Start 02/03/18 at 02:15 Al Hydroxide/Mg Hydroxide (Mylanta Plus Xs) 15 ml PRN AFTMEALHC PRN PO DYSPEPSIA; Start 02/03/18 at 02:15 Magnesium Hydroxide (Milk Of Magnesia) 2,400 mg PRN QHS PRN PO CONSTIPATION; Start 02/03/18 at 02:15 Acetaminophen (Tylenol) 650 mg PRN Q4HRS PRN PO PAIN / TEMP; Start 02/03/18 at 05:00 Alprazolam (Xanax) 0.5 mg PRN TID PRN PO ANXIETY / AGITATION Last administered on 02/05/18at 08:30; Start 02/03/18 at 05:00 Alprazolam (Xanax) 0.5 mg QHS PO Last administered on 02/05/18at 20:29; Start at 21:00 Buspirone HCl (Buspar) 5 mg TID PO Last administered on 02/04/18 08:37; Start 02/03/18 at 09:00; Stop 02/04/18 at 13:41; Status DC Acetaminophen/ Butalbital/ Caffeine (Fioricet) 1 tab PRN Q8HRS PRN PO HEADACHE ; Start 02/03/18 at 05:00 Calcium Polycarbophil (Fibercon) 625 mg DAILY PO Last administered on 08:27; Start 02/03/18 at 09:00 Docusate Sodium (Colace) 100 mg PRN DAILY PRN PO CONSTIPATION; Start 02/03/18 at 05:00 Duloxetine HCl (Cymbalta) 60 mg DAILY PO Last administered on 02/05/18 08:27; Start 02/03/18 at 09:00 Furosemide (Lasix) 40 mg DAILY PO Last administered on 02/05/18 08:27; Start 02/03/18 at 09:00 Levothyroxine Sodium (Synthroid) 75 mcg DAILY06 PO Last administered on 05:50; Start 02/03/18 at 06:00 Magnesium Oxide (Magnesium Oxide) 400 mg TIDWMEALS PO Last administered on 02/05 17:00; Start 02/03/18 at 08:00 Meloxicam (Mobic) 7.5 mg DAILY PO Last administered on 02/05/18 08:28; Start 02/03/18 at 09:00 Metformin HCl (Glucophage) 1,000 mg BIDWMEALS PO Last administered on 17:00; Start 02/03/18 at 08:00 Potassium Chloride (Klor-Con) 10 meq DAILY PO Last administered on 02/05/18 08 :27; Start 02/03/18 at 09:00 Pregabalin (Lyrica) 50 mg BID PO Last administered on 02/05/18 20:31; Start at 09:00 Risperidone (RisperDAL) 4 mg HS PO Last administered on 02/05/18 20:30; Start 02/03/18 at 21:00 Tramadol HCl (Ultram) 50 mg PRN Q4HRS PRN PO PAIN; Start 02/03/18 at 05:00 Valproic Acid (Depakene) 250 mg BID PO Last administered on 02/05/18 08:26; Start 02/03/18 at 09:00; Stop 02/05/18 at 19:18; Status DC Atorvastatin Calcium (Lipitor) 80 mg QHS PO Last administered on 02/05/18at 20: 29; Start 02/03/18 at 21:00 Non-Formulary Medication (Cinnamon Bark (Cinnamon)) 1,000 mg DAILY PO ; Start at 09:00; Status UNV Insulin Glargine (Lantus) 40 units HS SQ Last administered on 02/05/18 20:34; Start 02/03/18 at 21:00 Insulin Glargine (Lantus) 50 units DAILYWBKFT SQ Last administered on 08:34; Start 02/03/18 at 08:00 Non-Formulary Medication (Ipratropium/ Albuterol Sulfate (Combivent Respimat Inhal)) 2 puff PRN Q4HRS PRN INH SHORTNESS OF BREATH; Start 02/03/18 at 05:00; Stop 02/03/18 at 07:10; Status DC Lactobacillus Rhamnosus (Culturelle) 1 cap DAILY PO Last administered on at 08:27; Start 02/03/18 at 09:00 Non-Formulary Medication (Menthol (Biofreeze)) 1 jurgen PRN QID PRN TP MUSCLE PAIN ; Start 02/03/18 at 05:00; Stop 02/03/18 at 07:08; Status DC Fish Oil (Fish Oil) 1,000 mg DAILY PO Last administered on 02/05/18at 08:27; Start 02/03/18 at 09:00 Ondansetron HCl (Zofran Odt) 4 mg PRN Q6HRS PRN PO NAUSEA/VOMITING; Start 02/03 at 05:00 Phenytoin Sodium (Dilantin) 300 mg QHS PO Last administered on 02/05/18at 20:29 ; Start 02/03/18 at 21:00 Albuterol/ Ipratropium (Duoneb) 3 ml PRN Q4HRS PRN NEB SHORTNESS OF BREATH; Start 02/03/18 at 07:15 Buspirone HCl (Buspar) 5 mg QID PO Last administered on 02/05/18at 20:29; Start 02/04/18 at 17:00 Valproic Acid (Depakene) 375 mg BID PO ; Start 02/05/18 at 21:00; Stop 02/05/18 at 21:00; Status DC Divalproex Sodium (Depakote Sprinkles) 375 mg BID PO Last administered on at 20:29; Start 02/05/18 at 21:00 Active Scripts Active Reported Xanax (Alprazolam) 0.5 Mg Tablet 0.5 Mg PO PRN TID PRN Tramadol Hcl (Tramadol HCl) 50 Mg Tablet 50 Mg PO PRN Q4HRS PRN Hnqqux-Xgqtsudr-Dnuk 50-325-40 (Butalb/Acetaminophen/Caffeine) 1 Each Tablet 1 Tab PO PRN Q8HRS PRN Xanax (Alprazolam) 0.5 Mg Tablet 0.5 Mg PO QHS Valproic Acid 250 Mg Capsule 250 Mg PO BID Biofreeze (Menthol) 118 Ml Gel..ml. 1 Jurgen TP PRN QID PRN Zofran (Ondansetron Hcl) 4 Mg Tablet 4 Mg PO PRN Q6HRS PRN Mobic (Meloxicam) 7.5 Mg Tablet 7.5 Mg PO DAILY Lasix (Furosemide) 40 Mg Tablet 40 Mg PO DAILY Fish Oil 1,000 Mg Softgel ([place]-3/Dha/Epa/Fish Oil) 1 Each Capsule 1 Cap PO DAILY Cinnamon (Cinnamon Bark) 500 Mg Capsule 1,000 Mg PO DAILY Phenytoin Sodium Extended 300 Mg Capsule 300 Mg PO QHS Lyrica (Pregabalin) 50 Mg Capsule 50 Mg PO BID Duloxetine Hcl 60 Mg Capsule.dr 60 Mg PO DAILY Combivent Respimat Inhal (Ipratropium/Albuterol Sulfate) 4 Gm Aer.w.adap 2 Puff INH PRN Q4HRS PRN Fibercon (Calcium Polycarbophil) 625 Mg Tablet 625 Mg PO DAILY Probiotic (Lactobacillus Acidophilus) 1 Each Capsule 1 Tab PO DAILY Levemir (Insulin Detemir) 100 Unit/1 Ml Vial 40 Unit SQ HS Levemir (Insulin Detemir) 100 Unit/1 Ml Vial 50 Unit SQ DAILYWBKFT Magnesium Oxide 400 Mg Tablet 400 Mg PO TIDWMEALS Colace (Docusate Sodium) 100 Mg Capsule 100 Mg PO PRN DAILY PRN Risperidone 0.5 Mg Tablet 4 Mg PO HS give with 4 mg dose to make 4.5 mg dose Buspirone Hcl 5 Mg Tablet 5 Mg PO TID Do not administer with grapefruit juice Tylenol (Acetaminophen) 325 Mg Tablet 650 Mg PO PRN Q4HRS PRN Max Acetaminophen dose is 4000mg in 24 hours from all sources for adults Levothyroxine Sodium 75 Mcg Tablet 75 Mcg PO DAILY06 Administer on an empty stomach: 1 hour before or 2 hours after a meal Metformin Hcl 500 Mg Tablet 1,000 Mg PO BIDWMEALS Give with meals Potassium Chloride 10 Meq Tab.er.prt 10 Meq PO DAILY On Thursday and Thursday Atorvastatin Calcium 80 Mg Tablet 80 Mg PO QHS I have reviewed the current psychotropics carefully including drug interactions. Risk benefit ratio favors no change other than as noted in my dictated progress note. Diagnosis: Problems: (1) Suicidal ideation (2) Medical clearance for psychiatric admission (3) Suicidal ideation (4) Anxiety disorder (5) Suicidal ideations (6) Homicidal ideation (7) Bipolar affective disorder, mixed (8) Borderline intellectual disability (9) Impulse control disorder KIT BUENO MD Feb 05, 2018 23:06
[2018-02-06] MEDS: LEVOTHYROXINE 75 MCG TABLET PO SCH (06:23)
[2018-02-06 06:49] VITALS: BP 143/77
[2018-02-06] MEDS: metFORMIN 500 MG TABLET PO SCH ×2 (08:09→17:41)
[2018-02-06] MEDS: MAGNESIUM OXIDE 400 MG TABLET PO SCH ×3 (08:09→17:41)
[2018-02-06] MEDS: INSULIN GLARGINE 300 UNITS/3 ML INSULN.PEN. SQ SCH ×2 (08:10→21:53)
[2018-02-06] MEDS: DULoxetine HCL 60 MG CAPSULE.DR PO SCH (08:15)
[2018-02-06] MEDS: busPIRone 5 MG TABLET. PO SCH ×4 (08:15→21:17)
[2018-02-06] MEDS: LACTOBACILLUS RHAMNOSUS GG 1 CAPSULE. PO SCH (08:15)
[2018-02-06] MEDS: OMEGA-3 FATTY ACIDS/FISH OIL 1,000 MG CAPSULE. PO SCH (08:16)
[2018-02-06] MEDS: DIVALPROEX 125 MG CAP.SPRINK PO SCH ×2 (08:16→21:17)
[2018-02-06] MEDS: FUROSEMIDE 40 MG TABLET PO SCH (08:16)
[2018-02-06] MEDS: POTASSIUM CHLORIDE 10 MEQ TABLET.ER. PO SCH (08:16)
[2018-02-06] MEDS: CALCIUM POLYCARBOPHIL 625 MG TABLET PO SCH (08:16)
[2018-02-06] MEDS: PREGABALIN 50 MG CAPSULE PO SCH ×2 (08:17→21:21)
[2018-02-06] MEDS: MELOXICAM 7.5 MG TABLET PO SCH (08:18)
[2018-02-06 08:39] LABS: PHENY 2.4 mcg/mL (10.0-20.0)
[2018-02-06] MEDS: ALPRAZolam 0.5 MG TABLET PO PRN (09:11)
[2018-02-06 17:50] VITALS: BP 132/82
[2018-02-06] MEDS: ATORVASTATIN CALCIUM 20 MG TABLET PO SCH (21:16)
[2018-02-06] MEDS: PHENYTOIN SODIUM EXTENDED 100 MG CAPSULE PO SCH (21:16)
[2018-02-06] MEDS: ALPRAZolam 0.5 MG TABLET PO SCH (21:17)
[2018-02-06] MEDS: risperiDONE 2 MG TABLET. PO SCH (21:18)
--- NOTE | 2018-02-06 21:54 | PN ---
DATE: 02/04/2018 PSYCHIATRIC PROGRESS NOTE This is a late entry for 02/04/2018, covers elements not covered in my initial note of 02/04/2018. SUBJECTIVE: The patient was staffed at a treatment team meeting with the entire team in the morning, seen individually in the evening. The patient reportedly has gained 48 pounds in the past many months. Reviewed her history of psychiatric hospitalization at [facility] 2 months ago due to suicidal ideation. We will consult Dr. Woodson given her seizure disorder history, fact that she is on Depakote, which could contribute to some weight gain and remains on Dilantin as well. REVIEW OF SYSTEMS: No CV, , pulmonary, eye, ENT system symptoms on review. MENTAL STATUS EXAM: Oriented to herself and situation. Speech coherent, rapid at times. Abstraction fair, computation impaired, language function intact, attention span short. Mood and affect remain somewhat labile. LABORATORY DATA: Reviewed. IMPRESSION: Bipolar 1 disorder, mixed with psychotic features; anxiety disorder, unspecified; personality disorder. PLAN: Increase BuSpar from 5 mg 3 times a day to 4 times a day. Neurology consult as noted. Continue rest unchanged. MAN Chintan BUENO MD DR: LACEY/haile JOB#: [id number] / [id number]
--- NOTE | 2018-02-06 22:44 | PDOC ---
Exam Note: Jonathan Note: Please also refer to the separate dictated note~for this date of service dictated separately.~Patient seen individually. Discussed the patient with Nursing staff reviewed the chart.~Reviewed interim history and current functioning. Reviewed vital signs,~Labs/ Radiology~and current medications noted below. Continue current treatment with the changes noted in the dictated addendum note Assessment: Vital Signs: Vital Signs Date Time Temp Pulse Resp B/P (MAP) Pulse Ox O2 Delivery O2 Flow Rate FiO2 02/06/18 17:50 97.9 94 20 132/82 (99) 94 02/03/18 00:45 Room Air I&O Intake and Output 02/06/18 07:00 Intake Total 1320 ml Balance 1320 ml Intake Oral 1320 ml Labs: Laboratory Tests Test 02/06/18 07:35 02/06/18 07:50 02/06/18 11:36 02/06/18 16:37 Glucose (Fingerstick) 157 mg/dL (70-99) H 225 mg/dL (70-99) H 166 mg/dL (70-99) H Phenytoin (Dilantin) Level 2.4 mcg/mL (10.0-20.0) L Phenytoin Last Dose Date 02/05/18 Phenytoin Last Dose Time 2100 Current Medications: Meds: Current Medications Acetaminophen (Tylenol) 650 mg PRN Q6HRS PRN PO PAIN / TEMP; Start 02/03/18 at 02:15; Stop 02/06/18 at 13:39; Status DC Multi-Ingredient Ointment (Analgesic [place]) 1 jurgen PRN QID PRN TP MUSCLE PAIN; Start 02/03/18 at 02:15 Al Hydroxide/Mg Hydroxide (Mylanta Plus Xs) 15 ml PRN AFTMEALHC PRN PO DYSPEPSIA; Start 02/03/18 at 02:15 Magnesium Hydroxide (Milk Of Magnesia) 2,400 mg PRN QHS PRN PO CONSTIPATION; Start 02/03/18 at 02:15 Acetaminophen (Tylenol) 650 mg PRN Q4HRS PRN PO PAIN / TEMP; Start 02/03/18 at 05:00 Alprazolam (Xanax) 0.5 mg PRN TID PRN PO ANXIETY / AGITATION Last administered on 02/06/18at 09:11; Start 02/03/18 at 05:00 Alprazolam (Xanax) 0.5 mg QHS PO Last administered on 02/06/18 21:17; Start at 21:00 Buspirone HCl (Buspar) 5 mg TID PO Last administered on 02/04/18 08:37; Start 02/03/18 at 09:00; Stop 02/04/18 at 13:41; Status DC Acetaminophen/ Butalbital/ Caffeine (Fioricet) 1 tab PRN Q8HRS PRN PO HEADACHE ; Start 02/03/18 at 05:00 Calcium Polycarbophil (Fibercon) 625 mg DAILY PO Last administered on 08:16; Start 02/03/18 at 09:00 Docusate Sodium (Colace) 100 mg PRN DAILY PRN PO CONSTIPATION; Start 02/03/18 at 05:00 Duloxetine HCl (Cymbalta) 60 mg DAILY PO Last administered on 02/06/18 08:15; Start 02/03/18 at 09:00 Furosemide (Lasix) 40 mg DAILY PO Last administered on 02/06/18 08:16; Start 02/03/18 at 09:00 Levothyroxine Sodium (Synthroid) 75 mcg DAILY06 PO Last administered on 06:23; Start 02/03/18 at 06:00 Magnesium Oxide (Magnesium Oxide) 400 mg TIDWMEALS PO Last administered on 02/06 17:41; Start 02/03/18 at 08:00 Meloxicam (Mobic) 7.5 mg DAILY PO Last administered on 02/06/18 08:18; Start 02/03/18 at 09:00 Metformin HCl (Glucophage) 1,000 mg BIDWMEALS PO Last administered on 17:41; Start 02/03/18 at 08:00 Potassium Chloride (Klor-Con) 10 meq DAILY PO Last administered on 02/06/18 08 :16; Start 02/03/18 at 09:00 Pregabalin (Lyrica) 50 mg BID PO Last administered on 02/06/18 21:21; Start at 09:00 Risperidone (RisperDAL) 4 mg HS PO Last administered on 02/06/18 21:18; Start 02/03/18 at 21:00 Tramadol HCl (Ultram) 50 mg PRN Q4HRS PRN PO PAIN; Start 02/03/18 at 05:00 Valproic Acid (Depakene) 250 mg BID PO Last administered on 02/05/18at 08:26; Start 02/03/18 at 09:00; Stop 02/05/18 at 19:18; Status DC Atorvastatin Calcium (Lipitor) 80 mg QHS PO Last administered on 02/06/18at 21: 16; Start 02/03/18 at 21:00 Non-Formulary Medication (Cinnamon Bark (Cinnamon)) 1,000 mg DAILY PO ; Start at 09:00; Status UNV Insulin Glargine (Lantus) 40 units HS SQ Last administered on 02/06/18at 21:53; Start 02/03/18 at 21:00 Insulin Glargine (Lantus) 50 units DAILYWBKFT SQ Last administered on at 08:10; Start 02/03/18 at 08:00 Non-Formulary Medication (Ipratropium/ Albuterol Sulfate (Combivent Respimat Inhal)) 2 puff PRN Q4HRS PRN INH SHORTNESS OF BREATH; Start 02/03/18 at 05:00; Stop 02/03/18 at 07:10; Status DC Lactobacillus Rhamnosus (Culturelle) 1 cap DAILY PO Last administered on at 08:15; Start 02/03/18 at 09:00 Non-Formulary Medication (Menthol (Biofreeze)) 1 ujrgen PRN QID PRN TP MUSCLE PAIN ; Start 02/03/18 at 05:00; Stop 02/03/18 at 07:08; Status DC Fish Oil (Fish Oil) 1,000 mg DAILY PO Last administered on 02/06/18at 08:16; Start 02/03/18 at 09:00 Ondansetron HCl (Zofran Odt) 4 mg PRN Q6HRS PRN PO NAUSEA/VOMITING; Start 02/03 at 05:00 Phenytoin Sodium (Dilantin) 300 mg QHS PO Last administered on 02/06/18at 21:16 ; Start 02/03/18 at 21:00 Albuterol/ Ipratropium (Duoneb) 3 ml PRN Q4HRS PRN NEB SHORTNESS OF BREATH; Start 02/03/18 at 07:15 Buspirone HCl (Buspar) 5 mg QID PO Last administered on 02/06/18at 21:17; Start 02/04/18 at 17:00 Valproic Acid (Depakene) 375 mg BID PO ; Start 02/05/18 at 21:00; Stop 02/05/18 at 21:00; Status DC Divalproex Sodium (Depakote Sprinkles) 375 mg BID PO Last administered on at 21:17; Start 02/05/18 at 21:00 Active Scripts Active Reported Xanax (Alprazolam) 0.5 Mg Tablet 0.5 Mg PO PRN TID PRN Tramadol Hcl (Tramadol HCl) 50 Mg Tablet 50 Mg PO PRN Q4HRS PRN Bksqha-Jxpkpdno-Cxrg 50-325-40 (Butalb/Acetaminophen/Caffeine) 1 Each Tablet 1 Tab PO PRN Q8HRS PRN Xanax (Alprazolam) 0.5 Mg Tablet 0.5 Mg PO QHS Valproic Acid 250 Mg Capsule 250 Mg PO BID Biofreeze (Menthol) 118 Ml Gel..ml. 1 Jurgen TP PRN QID PRN Zofran (Ondansetron Hcl) 4 Mg Tablet 4 Mg PO PRN Q6HRS PRN Mobic (Meloxicam) 7.5 Mg Tablet 7.5 Mg PO DAILY Lasix (Furosemide) 40 Mg Tablet 40 Mg PO DAILY Fish Oil 1,000 Mg Softgel ([place]-3/Dha/Epa/Fish Oil) 1 Each Capsule 1 Cap PO DAILY Cinnamon (Cinnamon Bark) 500 Mg Capsule 1,000 Mg PO DAILY Phenytoin Sodium Extended 300 Mg Capsule 300 Mg PO QHS Lyrica (Pregabalin) 50 Mg Capsule 50 Mg PO BID Duloxetine Hcl 60 Mg Capsule.dr 60 Mg PO DAILY Combivent Respimat Inhal (Ipratropium/Albuterol Sulfate) 4 Gm Aer.w.adap 2 Puff INH PRN Q4HRS PRN Fibercon (Calcium Polycarbophil) 625 Mg Tablet 625 Mg PO DAILY Probiotic (Lactobacillus Acidophilus) 1 Each Capsule 1 Tab PO DAILY Levemir (Insulin Detemir) 100 Unit/1 Ml Vial 40 Unit SQ HS Levemir (Insulin Detemir) 100 Unit/1 Ml Vial 50 Unit SQ DAILYWBKFT Magnesium Oxide 400 Mg Tablet 400 Mg PO TIDWMEALS Colace (Docusate Sodium) 100 Mg Capsule 100 Mg PO PRN DAILY PRN Risperidone 0.5 Mg Tablet 4 Mg PO HS give with 4 mg dose to make 4.5 mg dose Buspirone Hcl 5 Mg Tablet 5 Mg PO TID Do not administer with grapefruit juice Tylenol (Acetaminophen) 325 Mg Tablet 650 Mg PO PRN Q4HRS PRN Max Acetaminophen dose is 4000mg in 24 hours from all sources for adults Levothyroxine Sodium 75 Mcg Tablet 75 Mcg PO DAILY06 Administer on an empty stomach: 1 hour before or 2 hours after a meal Metformin Hcl 500 Mg Tablet 1,000 Mg PO BIDWMEALS Give with meals Potassium Chloride 10 Meq Tab.er.prt 10 Meq PO DAILY On Thursday and Thursday Atorvastatin Calcium 80 Mg Tablet 80 Mg PO QHS I have reviewed the current psychotropics carefully including drug interactions. Risk benefit ratio favors no change other than as noted in my dictated progress note. Diagnosis: Problems: (1) Suicidal ideation (2) Medical clearance for psychiatric admission (3) Suicidal ideation (4) Anxiety disorder (5) Suicidal ideations (6) Homicidal ideation (7) Bipolar affective disorder, mixed (8) Borderline intellectual disability (9) Impulse control disorder KIT BUENO MD Feb 06, 2018 22:44
[2018-02-07] MEDS: LEVOTHYROXINE 75 MCG TABLET PO SCH (06:02)
[2018-02-07 06:31] VITALS: BP 126/69
[2018-02-07] MEDS: metFORMIN 500 MG TABLET PO SCH ×2 (09:25→17:07)
[2018-02-07] MEDS: MAGNESIUM OXIDE 400 MG TABLET PO SCH ×3 (09:25→17:06)
[2018-02-07] MEDS: OMEGA-3 FATTY ACIDS/FISH OIL 1,000 MG CAPSULE. PO SCH (09:27)
[2018-02-07] MEDS: INSULIN GLARGINE 300 UNITS/3 ML INSULN.PEN. SQ SCH ×2 (09:27→21:18)
[2018-02-07] MEDS: LACTOBACILLUS RHAMNOSUS GG 1 CAPSULE. PO SCH (09:27)
[2018-02-07] MEDS: busPIRone 5 MG TABLET. PO SCH ×4 (09:27→19:50)
[2018-02-07] MEDS: DIVALPROEX 125 MG CAP.SPRINK PO SCH ×2 (09:27→19:50)
[2018-02-07] MEDS: CALCIUM POLYCARBOPHIL 625 MG TABLET PO SCH (09:27)
[2018-02-07] MEDS: DULoxetine HCL 60 MG CAPSULE.DR PO SCH (09:27)
[2018-02-07] MEDS: MELOXICAM 7.5 MG TABLET PO SCH (09:28)
[2018-02-07] MEDS: FUROSEMIDE 40 MG TABLET PO SCH (09:28)
[2018-02-07] MEDS: POTASSIUM CHLORIDE 10 MEQ TABLET.ER. PO SCH (09:28)
[2018-02-07] MEDS: PREGABALIN 50 MG CAPSULE PO SCH ×2 (09:28→21:09)
[2018-02-07] MEDS: ALPRAZolam 0.5 MG TABLET PO PRN (09:33)
[2018-02-07] MEDS ORDERED: DEXTROSE 50% 25 GM / 50ML DISP.SYRIN. IV PRN (15:15)
[2018-02-07 16:22] VITALS: BP 131/78
[2018-02-07] MEDS: INSULIN LISPRO 300 UNITS/3 ML INSULN.PEN. SQ SCH (17:10)
[2018-02-07] MEDS: risperiDONE 2 MG TABLET. PO SCH (19:50)
[2018-02-07] MEDS: PHENYTOIN SODIUM EXTENDED 100 MG CAPSULE PO SCH (19:50)
[2018-02-07] MEDS: ATORVASTATIN CALCIUM 20 MG TABLET PO SCH (19:50)
[2018-02-07] MEDS: ALPRAZolam 0.5 MG TABLET PO SCH (21:10)
--- NOTE | 2018-02-07 22:28 | PDOC ---
Exam Note: Jonathan Note: Please also refer to the separate dictated note~for this date of service dictated separately.~Patient seen individually. Discussed the patient with Nursing staff reviewed the chart.~Reviewed interim history and current functioning. Reviewed vital signs,~Labs/ Radiology~and current medications noted below. Continue current treatment with the changes noted in the dictated addendum note Assessment: Vital Signs: Vital Signs Date Time Temp Pulse Resp B/P (MAP) Pulse Ox O2 Delivery O2 Flow Rate FiO2 02/07/18 16:22 98.6 103 19 131/78 (95) 95 02/03/18 00:45 Room Air I&O Intake and Output 02/07/18 07:00 Intake Total 1440 ml Balance 1440 ml Intake Oral 1440 ml Labs: Laboratory Tests Test 02/07/18 07:15 02/07/18 11:50 02/07/18 16:04 02/07/18 19:34 Glucose (Fingerstick) 123 mg/dL (70-99) H 236 mg/dL (70-99) H 158 mg/dL (70-99) H 202 mg/dL (70-99) H Current Medications: Meds: Current Medications Acetaminophen (Tylenol) 650 mg PRN Q6HRS PRN PO PAIN / TEMP; Start 02/03/18 at 02:15; Stop 02/06/18 at 13:39; Status DC Multi-Ingredient Ointment (Analgesic [place]) 1 jurgen PRN QID PRN TP MUSCLE PAIN; Start 02/03/18 at 02:15 Al Hydroxide/Mg Hydroxide (Mylanta Plus Xs) 15 ml PRN AFTMEALHC PRN PO DYSPEPSIA; Start 02/03/18 at 02:15 Magnesium Hydroxide (Milk Of Magnesia) 2,400 mg PRN QHS PRN PO CONSTIPATION; Start 02/03/18 at 02:15 Acetaminophen (Tylenol) 650 mg PRN Q4HRS PRN PO PAIN / TEMP; Start 02/03/18 at 05:00 Alprazolam (Xanax) 0.5 mg PRN TID PRN PO ANXIETY / AGITATION Last administered on 02/07/18at 09:33; Start 02/03/18 at 05:00 Alprazolam (Xanax) 0.5 mg QHS PO Last administered on 02/07/18at 21:10; Start at 21:00 Buspirone HCl (Buspar) 5 mg TID PO Last administered on 02/04/18 08:37; Start 02/03/18 at 09:00; Stop 02/04/18 at 13:41; Status DC Acetaminophen/ Butalbital/ Caffeine (Fioricet) 1 tab PRN Q8HRS PRN PO HEADACHE ; Start 02/03/18 at 05:00 Calcium Polycarbophil (Fibercon) 625 mg DAILY PO Last administered on 09:27; Start 02/03/18 at 09:00 Docusate Sodium (Colace) 100 mg PRN DAILY PRN PO CONSTIPATION; Start 02/03/18 at 05:00 Duloxetine HCl (Cymbalta) 60 mg DAILY PO Last administered on 02/07/18 09:27; Start 02/03/18 at 09:00 Furosemide (Lasix) 40 mg DAILY PO Last administered on 02/07/18 09:28; Start 02/03/18 at 09:00 Levothyroxine Sodium (Synthroid) 75 mcg DAILY06 PO Last administered on 06:02; Start 02/03/18 at 06:00 Magnesium Oxide (Magnesium Oxide) 400 mg TIDWMEALS PO Last administered on 02/07 17:06; Start 02/03/18 at 08:00 Meloxicam (Mobic) 7.5 mg DAILY PO Last administered on 02/07/18 09:28; Start 02/03/18 at 09:00 Metformin HCl (Glucophage) 1,000 mg BIDWMEALS PO Last administered on 17:07; Start 02/03/18 at 08:00 Potassium Chloride (Klor-Con) 10 meq DAILY PO Last administered on 02/07/18 09 :28; Start 02/03/18 at 09:00 Pregabalin (Lyrica) 50 mg BID PO Last administered on 02/07/18 21:09; Start at 09:00 Risperidone (RisperDAL) 4 mg HS PO Last administered on 02/07/18at 19:50; Start 02/03/18 at 21:00 Tramadol HCl (Ultram) 50 mg PRN Q4HRS PRN PO PAIN; Start 02/03/18 at 05:00 Valproic Acid (Depakene) 250 mg BID PO Last administered on 02/05/18 08:26; Start 02/03/18 at 09:00; Stop 02/05/18 at 19:18; Status DC Atorvastatin Calcium (Lipitor) 80 mg QHS PO Last administered on 02/07/18 19: 50; Start 02/03/18 at 21:00 Non-Formulary Medication (Cinnamon Bark (Cinnamon)) 1,000 mg DAILY PO ; Start at 09:00; Status UNV Insulin Glargine (Lantus) 40 units HS SQ Last administered on 02/07/18 21:18; Start 02/03/18 at 21:00 Insulin Glargine (Lantus) 50 units DAILYWBKFT SQ Last administered on 09:27; Start 02/03/18 at 08:00 Non-Formulary Medication (Ipratropium/ Albuterol Sulfate (Combivent Respimat Inhal)) 2 puff PRN Q4HRS PRN INH SHORTNESS OF BREATH; Start 02/03/18 at 05:00; Stop 02/03/18 at 07:10; Status DC Lactobacillus Rhamnosus (Culturelle) 1 cap DAILY PO Last administered on 09:27; Start 02/03/18 at 09:00 Non-Formulary Medication (Menthol (Biofreeze)) 1 jurgen PRN QID PRN TP MUSCLE PAIN ; Start 02/03/18 at 05:00; Stop 02/03/18 at 07:08; Status DC Fish Oil (Fish Oil) 1,000 mg DAILY PO Last administered on 02/07/18 09:27; Start 02/03/18 at 09:00 Ondansetron HCl (Zofran Odt) 4 mg PRN Q6HRS PRN PO NAUSEA/VOMITING; Start 02/03 at 05:00 Phenytoin Sodium (Dilantin) 300 mg QHS PO Last administered on 02/07/18at 19:50 ; Start 02/03/18 at 21:00 Albuterol/ Ipratropium (Duoneb) 3 ml PRN Q4HRS PRN NEB SHORTNESS OF BREATH; Start 02/03/18 at 07:15 Buspirone HCl (Buspar) 5 mg QID PO Last administered on 02/07/18at 19:50; Start 02/04/18 at 17:00 Valproic Acid (Depakene) 375 mg BID PO ; Start 02/05/18 at 21:00; Stop 02/05/18 at 21:00; Status DC Divalproex Sodium (Depakote Sprinkles) 375 mg BID PO Last administered on at 19:50; Start 02/05/18 at 21:00 Insulin Human Lispro (HumaLOG) 0-5 UNITS TIDWMEALS SQ Last administered on 02/07at 17:10; Start 02/07/18 at 17:00 Dextrose 12.5 gm PRN Q15MIN PRN IV SEE COMMENTS; Start 02/07/18 at 15:15 Active Scripts Active Reported Xanax (Alprazolam) 0.5 Mg Tablet 0.5 Mg PO PRN TID PRN Tramadol Hcl (Tramadol HCl) 50 Mg Tablet 50 Mg PO PRN Q4HRS PRN Qitbok-Oprejltp-Rraz 50-325-40 (Butalb/Acetaminophen/Caffeine) 1 Each Tablet 1 Tab PO PRN Q8HRS PRN Xanax (Alprazolam) 0.5 Mg Tablet 0.5 Mg PO QHS Valproic Acid 250 Mg Capsule 250 Mg PO BID Biofreeze (Menthol) 118 Ml Gel..ml. 1 [place] TP PRN QID PRN Zofran (Ondansetron Hcl) 4 Mg Tablet 4 Mg PO PRN Q6HRS PRN Mobic (Meloxicam) 7.5 Mg Tablet 7.5 Mg PO DAILY Lasix (Furosemide) 40 Mg Tablet 40 Mg PO DAILY Fish Oil 1,000 Mg Softgel ([place]-3/Dha/Epa/Fish Oil) 1 Each Capsule 1 Cap PO DAILY Cinnamon (Cinnamon Bark) 500 Mg Capsule 1,000 Mg PO DAILY Phenytoin Sodium Extended 300 Mg Capsule 300 Mg PO QHS Lyrica (Pregabalin) 50 Mg Capsule 50 Mg PO BID Duloxetine Hcl 60 Mg Capsule.dr 60 Mg PO DAILY Combivent Respimat Inhal (Ipratropium/Albuterol Sulfate) 4 Gm Aer.w.adap 2 Puff INH PRN Q4HRS PRN Fibercon (Calcium Polycarbophil) 625 Mg Tablet 625 Mg PO DAILY Probiotic (Lactobacillus Acidophilus) 1 Each Capsule 1 Tab PO DAILY Levemir (Insulin Detemir) 100 Unit/1 Ml Vial 40 Unit SQ HS Levemir (Insulin Detemir) 100 Unit/1 Ml Vial 50 Unit SQ DAILYWBKFT Magnesium Oxide 400 Mg Tablet 400 Mg PO TIDWMEALS Colace (Docusate Sodium) 100 Mg Capsule 100 Mg PO PRN DAILY PRN Risperidone 0.5 Mg Tablet 4 Mg PO HS give with 4 mg dose to make 4.5 mg dose Buspirone Hcl 5 Mg Tablet 5 Mg PO TID Do not administer with grapefruit juice Tylenol (Acetaminophen) 325 Mg Tablet 650 Mg PO PRN Q4HRS PRN Max Acetaminophen dose is 4000mg in 24 hours from all sources for adults Levothyroxine Sodium 75 Mcg Tablet 75 Mcg PO DAILY06 Administer on an empty stomach: 1 hour before or 2 hours after a meal Metformin Hcl 500 Mg Tablet 1,000 Mg PO BIDWMEALS Give with meals Potassium Chloride 10 Meq Tab.er.prt 10 Meq PO DAILY On Thursday and Thursday Atorvastatin Calcium 80 Mg Tablet 80 Mg PO QHS I have reviewed the current psychotropics carefully including drug interactions. Risk benefit ratio favors no change other than as noted in my dictated progress note. Diagnosis: Problems: (1) Suicidal ideation (2) Medical clearance for psychiatric admission (3) Suicidal ideation (4) Anxiety disorder (5) Suicidal ideations (6) Homicidal ideation (7) Bipolar affective disorder, mixed (8) Borderline intellectual disability (9) Impulse control disorder KIT BUENO MD Feb 07, 2018 22:28
--- NOTE | 2018-02-08 00:36 | PN ---
DATE: 02/05/2018 PSYCHIATRIC PROGRESS NOTE This is a late entry 02/05/2018 covers elements not covered in my initial note. SUBJECTIVE: I met with the patient in the evening. The patient slept 8 hours, compliant with his medications, pleasant. REVIEW OF SYSTEMS: No CV, , pulmonary, eye, ENT system symptoms on review. Remains somewhat withdrawn in her room, less labile and anxious. MENTAL STATUS EXAM: Oriented to herself and situation. Speech, less pressured. Abstraction fair, computation impaired, language function intact, attention span short. Mood and affect still somewhat anxious, labile at times, but improved. LABORATORY DATA: Reviewed. IMPRESSION: Unchanged from initial note. PLAN: Valproic acid level is low at 16, on Depakote, Depakote 250 b.i.d. We will increase to 375 b.i.d. Check CBC, CMP, valproic acid level in 3 days. Rest unchanged from initial note. MAN Chintan BUENO MD DR: LACEY/haile JOB#: [id number] / [id number]
[2018-02-08] MEDS: LEVOTHYROXINE 75 MCG TABLET PO SCH (05:59)
[2018-02-08 06:22] VITALS: BP 117/70
[2018-02-08 07:35] LABS: HEMATOCRIT 42.3 % (36.0-47.0); HEMOGLOBIN 14.3 g/dL (12.0-15.5); RED BLOOD COUNT 4.64 x10^6/uL (3.50-5.40); RED CELL DISTRIBUTION WIDTH 15.3 % (11.5-14.5)
[2018-02-08] MEDS: INSULIN LISPRO 300 UNITS/3 ML INSULN.PEN. SQ SCH ×3 (07:49→16:59)
[2018-02-08 07:59] LABS: ALBUMIN 3.2 g/dL (3.4-5.0); ALBUMIN/GLOBULIN RATIO 0.8 (1.0-1.7); ALK PHOS 72 U/L (46-116); ALT (SGPT) 21 U/L (14-59); ANION GAP 7 (6-14); AST (SGOT) 8 U/L (15-37); BLOOD UREA NITROGEN 11 mg/dL (7-20); BUN/CREATININE RATIO 14 (6-20); CALCIUM 8.7 mg/dL (8.5-10.1); CARBON DIOXIDE 32 mmol/L (21-32); CHLORIDE 103 mmol/L (98-107); CREATININE 0.8 mg/dL (0.6-1.0); GFR 72.4; GLUCOSE 115 mg/dL (70-99); SODIUM 142 mmol/L (136-145); TOTAL BILIRUBIN 0.3 mg/dL (0.2-1.0); TOTAL PROTEIN 7.2 g/dL (6.4-8.2)
[2018-02-08 08:03] LABS: VAL ACID 31 mcg/mL (50-100)
[2018-02-08] MEDS: metFORMIN 500 MG TABLET PO SCH ×2 (08:11→17:12)
[2018-02-08] MEDS: MAGNESIUM OXIDE 400 MG TABLET PO SCH ×3 (08:11→17:12)
[2018-02-08] MEDS: INSULIN GLARGINE 300 UNITS/3 ML INSULN.PEN. SQ SCH ×2 (08:12→21:01)
[2018-02-08] MEDS: busPIRone 5 MG TABLET. PO SCH ×4 (08:12→20:53)
[2018-02-08] MEDS: LACTOBACILLUS RHAMNOSUS GG 1 CAPSULE. PO SCH (08:12)
[2018-02-08] MEDS: DIVALPROEX 125 MG CAP.SPRINK PO SCH ×2 (08:12→20:53)
[2018-02-08] MEDS: DULoxetine HCL 60 MG CAPSULE.DR PO SCH (08:12)
[2018-02-08] MEDS: CALCIUM POLYCARBOPHIL 625 MG TABLET PO SCH (08:12)
[2018-02-08] MEDS: FUROSEMIDE 40 MG TABLET PO SCH (08:13)
[2018-02-08] MEDS: OMEGA-3 FATTY ACIDS/FISH OIL 1,000 MG CAPSULE. PO SCH (08:13)
[2018-02-08] MEDS: POTASSIUM CHLORIDE 10 MEQ TABLET.ER. PO SCH (08:13)
[2018-02-08] MEDS: MELOXICAM 7.5 MG TABLET PO SCH (08:14)
[2018-02-08] MEDS: PREGABALIN 50 MG CAPSULE PO SCH ×2 (08:14→20:57)
[2018-02-08] MEDS: ALPRAZolam 0.5 MG TABLET PO PRN (08:24)
[2018-02-08 16:22] VITALS: BP 125/66
[2018-02-08] MEDS: risperiDONE 2 MG TABLET. PO SCH (20:53)
[2018-02-08] MEDS: ATORVASTATIN CALCIUM 20 MG TABLET PO SCH (20:54)
[2018-02-08] MEDS: ALPRAZolam 0.5 MG TABLET PO SCH (20:57)
[2018-02-08] MEDS: PHENYTOIN SODIUM EXTENDED 100 MG CAPSULE PO SCH (20:58)
--- NOTE | 2018-02-08 21:41 | PDOC ---
Exam Note: Jonathan Note: Please also refer to the separate dictated note~for this date of service dictated separately.~Patient seen individually. Discussed the patient with Nursing staff reviewed the chart.~Reviewed interim history and current functioning. Reviewed vital signs,~Labs/ Radiology~and current medications noted below. Continue current treatment with the changes noted in the dictated addendum note Assessment: Vital Signs: Vital Signs Date Time Temp Pulse Resp B/P (MAP) Pulse Ox O2 Delivery O2 Flow Rate FiO2 02/08/18 16:22 98.4 82 20 125/66 (85) 96 02/03/18 00:45 Room Air I&O Intake and Output 02/08/18 07:00 Intake Total 1568 ml Balance 1568 ml Intake Oral 1568 ml # Voids 2 Labs: Laboratory Tests Test 02/08/18 07:23 02/08/18 07:29 02/08/18 11:11 02/08/18 16:35 White Blood Count 8.0 x10^3/uL (4.0-11.0) Red Blood Count 4.64 x10^6/uL (3.50-5.40) Hemoglobin 14.3 g/dL (12.0-15.5) Hematocrit 42.3 % (36.0-47.0) Mean Corpuscular Volume 91 fL (79-100) Mean Corpuscular Hemoglobin 31 pg (25-35) Mean Corpuscular Hemoglobin Concent 34 g/dL (31-37) Red Cell Distribution Width 15.3 % (11.5-14.5) H Platelet Count 270 x10^3/uL (140-400) Sodium Level 142 mmol/L (136-145) Potassium Level 4.0 mmol/L (3.5-5.1) Chloride Level 103 mmol/L (98-107) Carbon Dioxide Level 32 mmol/L (21-32) Anion Gap 7 (6-14) Blood Urea Nitrogen 11 mg/dL (7-20) Creatinine 0.8 mg/dL (0.6-1.0) Estimated GFR (Cockcroft-Gault) 72.4 BUN/Creatinine Ratio 14 (6-20) Glucose Level 115 mg/dL (70-99) H Calcium Level 8.7 mg/dL (8.5-10.1) Total Bilirubin 0.3 mg/dL (0.2-1.0) Aspartate Amino Transferase (AST) 8 U/L (15-37) L Alanine Aminotransferase (ALT) 21 U/L (14-59) Alkaline Phosphatase 72 U/L (46-116) Total Protein 7.2 g/dL (6.4-8.2) Albumin 3.2 g/dL (3.4-5.0) L Albumin/Globulin Ratio 0.8 (1.0-1.7) L Valproic Acid Level 31 mcg/mL (50-100) L Valproic Acid Last Dose Date 02/07/18 Valproic Acid Last Dose Time 2100 Glucose (Fingerstick) 135 mg/dL (70-99) H 171 mg/dL (70-99) H 108 mg/dL (70-99) H Test 02/08/18 19:23 Glucose (Fingerstick) 165 mg/dL (70-99) H Current Medications: Meds: Current Medications Acetaminophen (Tylenol) 650 mg PRN Q6HRS PRN PO PAIN / TEMP; Start 02/03/18 at 02:15; Stop 02/06/18 at 13:39; Status DC Multi-Ingredient Ointment (Analgesic Powers) 1 jurgen PRN QID PRN TP MUSCLE PAIN; Start 02/03/18 at 02:15 Al Hydroxide/Mg Hydroxide (Mylanta Plus Xs) 15 ml PRN AFTMEALHC PRN PO DYSPEPSIA; Start 02/03/18 at 02:15 Magnesium Hydroxide (Milk Of Magnesia) 2,400 mg PRN QHS PRN PO CONSTIPATION; Start 02/03/18 at 02:15 Acetaminophen (Tylenol) 650 mg PRN Q4HRS PRN PO PAIN / TEMP; Start 02/03/18 at 05:00 Alprazolam (Xanax) 0.5 mg PRN TID PRN PO ANXIETY / AGITATION Last administered on 02/08/18at 08:24; Start 02/03/18 at 05:00 Alprazolam (Xanax) 0.5 mg QHS PO Last administered on 02/08/18at 20:57; Start at 21:00 Buspirone HCl (Buspar) 5 mg TID PO Last administered on 02/04/18at 08:37; Start 02/03/18 at 09:00; Stop 02/04/18 at 13:41; Status DC Acetaminophen/ Butalbital/ Caffeine (Fioricet) 1 tab PRN Q8HRS PRN PO HEADACHE ; Start 02/03/18 at 05:00 Calcium Polycarbophil (Fibercon) 625 mg DAILY PO Last administered on 08:12; Start 02/03/18 at 09:00 Docusate Sodium (Colace) 100 mg PRN DAILY PRN PO CONSTIPATION; Start 02/03/18 at 05:00 Duloxetine HCl (Cymbalta) 60 mg DAILY PO Last administered on 02/08/18 08:12; Start 02/03/18 at 09:00 Furosemide (Lasix) 40 mg DAILY PO Last administered on 02/08/18 08:13; Start 02/03/18 at 09:00 Levothyroxine Sodium (Synthroid) 75 mcg DAILY06 PO Last administered on 05:59; Start 02/03/18 at 06:00 Magnesium Oxide (Magnesium Oxide) 400 mg TIDWMEALS PO Last administered on 02/08 17:12; Start 02/03/18 at 08:00 Meloxicam (Mobic) 7.5 mg DAILY PO Last administered on 02/08/18 08:14; Start 02/03/18 at 09:00 Metformin HCl (Glucophage) 1,000 mg BIDWMEALS PO Last administered on 17:12; Start 02/03/18 at 08:00 Potassium Chloride (Klor-Con) 10 meq DAILY PO Last administered on 02/08/18 08 :13; Start 02/03/18 at 09:00 Pregabalin (Lyrica) 50 mg BID PO Last administered on 02/08/18 20:57; Start at 09:00 Risperidone (RisperDAL) 4 mg HS PO Last administered on 02/08/18 20:53; Start 02/03/18 at 21:00 Tramadol HCl (Ultram) 50 mg PRN Q4HRS PRN PO PAIN; Start 02/03/18 at 05:00 Valproic Acid (Depakene) 250 mg BID PO Last administered on 02/05/18at 08:26; Start 02/03/18 at 09:00; Stop 02/05/18 at 19:18; Status DC Atorvastatin Calcium (Lipitor) 80 mg QHS PO Last administered on 02/08/18at 20: 54; Start 02/03/18 at 21:00 Non-Formulary Medication (Cinnamon Bark (Cinnamon)) 1,000 mg DAILY PO ; Start at 09:00; Status UNV Insulin Glargine (Lantus) 40 units HS SQ Last administered on 02/08/18at 21:01; Start 02/03/18 at 21:00 Insulin Glargine (Lantus) 50 units DAILYWBKFT SQ Last administered on 08:12; Start 02/03/18 at 08:00 Non-Formulary Medication (Ipratropium/ Albuterol Sulfate (Combivent Respimat Inhal)) 2 puff PRN Q4HRS PRN INH SHORTNESS OF BREATH; Start 02/03/18 at 05:00; Stop 02/03/18 at 07:10; Status DC Lactobacillus Rhamnosus (Culturelle) 1 cap DAILY PO Last administered on at 08:12; Start 02/03/18 at 09:00 Non-Formulary Medication (Menthol (Biofreeze)) 1 jurgen PRN QID PRN TP MUSCLE PAIN ; Start 02/03/18 at 05:00; Stop 02/03/18 at 07:08; Status DC Fish Oil (Fish Oil) 1,000 mg DAILY PO Last administered on 02/08/18at 08:13; Start 02/03/18 at 09:00 Ondansetron HCl (Zofran Odt) 4 mg PRN Q6HRS PRN PO NAUSEA/VOMITING; Start 02/03 at 05:00 Phenytoin Sodium (Dilantin) 300 mg QHS PO Last administered on 02/08/18at 20:58 ; Start 02/03/18 at 21:00 Albuterol/ Ipratropium (Duoneb) 3 ml PRN Q4HRS PRN NEB SHORTNESS OF BREATH; Start 02/03/18 at 07:15 Buspirone HCl (Buspar) 5 mg QID PO Last administered on 02/08/18 20:53; Start 02/04/18 at 17:00 Valproic Acid (Depakene) 375 mg BID PO ; Start 02/05/18 at 21:00; Stop 02/05/18 at 21:00; Status DC Divalproex Sodium (Depakote Sprinkles) 375 mg BID PO Last administered on at 20:53; Start 02/05/18 at 21:00 Insulin Human Lispro (HumaLOG) 0-5 UNITS TIDWMEALS SQ Last administered on 02/08at 11:59; Start 02/07/18 at 17:00 Dextrose 12.5 gm PRN Q15MIN PRN IV SEE COMMENTS; Start 02/07/18 at 15:15 Active Scripts Active Reported Xanax (Alprazolam) 0.5 Mg Tablet 0.5 Mg PO PRN TID PRN Tramadol Hcl (Tramadol HCl) 50 Mg Tablet 50 Mg PO PRN Q4HRS PRN Vvnokl-Evosrzqs-Papr 50-325-40 (Butalb/Acetaminophen/Caffeine) 1 Each Tablet 1 Tab PO PRN Q8HRS PRN Xanax (Alprazolam) 0.5 Mg Tablet 0.5 Mg PO QHS Valproic Acid 250 Mg Capsule 250 Mg PO BID Biofreeze (Menthol) 118 Ml Gel..ml. 1 Jurgen TP PRN QID PRN Zofran (Ondansetron Hcl) 4 Mg Tablet 4 Mg PO PRN Q6HRS PRN Mobic (Meloxicam) 7.5 Mg Tablet 7.5 Mg PO DAILY Lasix (Furosemide) 40 Mg Tablet 40 Mg PO DAILY Fish Oil 1,000 Mg Softgel ([place]-3/Dha/Epa/Fish Oil) 1 Each Capsule 1 Cap PO DAILY Cinnamon (Cinnamon Bark) 500 Mg Capsule 1,000 Mg PO DAILY Phenytoin Sodium Extended 300 Mg Capsule 300 Mg PO QHS Lyrica (Pregabalin) 50 Mg Capsule 50 Mg PO BID Duloxetine Hcl 60 Mg Capsule.dr 60 Mg PO DAILY Combivent Respimat Inhal (Ipratropium/Albuterol Sulfate) 4 Gm Aer.w.adap 2 Puff INH PRN Q4HRS PRN Fibercon (Calcium Polycarbophil) 625 Mg Tablet 625 Mg PO DAILY Probiotic (Lactobacillus Acidophilus) 1 Each Capsule 1 Tab PO DAILY Levemir (Insulin Detemir) 100 Unit/1 Ml Vial 40 Unit SQ HS Levemir (Insulin Detemir) 100 Unit/1 Ml Vial 50 Unit SQ DAILYWBKFT Magnesium Oxide 400 Mg Tablet 400 Mg PO TIDWMEALS Colace (Docusate Sodium) 100 Mg Capsule 100 Mg PO PRN DAILY PRN Risperidone 0.5 Mg Tablet 4 Mg PO HS give with 4 mg dose to make 4.5 mg dose Buspirone Hcl 5 Mg Tablet 5 Mg PO TID Do not administer with grapefruit juice Tylenol (Acetaminophen) 325 Mg Tablet 650 Mg PO PRN Q4HRS PRN Max Acetaminophen dose is 4000mg in 24 hours from all sources for adults Levothyroxine Sodium 75 Mcg Tablet 75 Mcg PO DAILY06 Administer on an empty stomach: 1 hour before or 2 hours after a meal Metformin Hcl 500 Mg Tablet 1,000 Mg PO BIDWMEALS Give with meals Potassium Chloride 10 Meq Tab.er.prt 10 Meq PO DAILY On Thursday and Thursday Atorvastatin Calcium 80 Mg Tablet 80 Mg PO QHS I have reviewed the current psychotropics carefully including drug interactions. Risk benefit ratio favors no change other than as noted in my dictated progress note. Diagnosis: Problems: (1) Suicidal ideation (2) Medical clearance for psychiatric admission (3) Suicidal ideation (4) Anxiety disorder (5) Suicidal ideations (6) Homicidal ideation (7) Bipolar affective disorder, mixed (8) Borderline intellectual disability (9) Impulse control disorder KIT BUENO MD Feb 08, 2018 21:41
--- NOTE | 2018-02-09 00:42 | PN ---
DATE: 02/08/2018 SUBJECTIVE: The patient denies any new medical or neurological complaints. She has not had any recurrent seizures since admission. OBJECTIVE: GENERAL: Well-developed, well-nourished white female, not in acute distress. VITAL SIGNS: Blood pressure 132/82, respiratory rate 20, pulse is 94 and regular, temperature 97.9, oxygen saturation 94% on room air. HEENT: Normocephalic, atraumatic, otherwise, unremarkable. NECK: Supple. Negative for carotid bruit, lymphadenopathy or thyromegaly. LUNGS: Clear to A and P. CARDIOVASCULAR: Regular rate and rhythm, normal S1, S2. There is no S3, S4 or murmur. ABDOMEN: Soft. Bowel sounds positive. EXTREMITIES: Negative for cyanosis, clubbing, pitting edema. NEUROLOGIC: Mental Status: The patient is alert and oriented x 3. The speech is fluent. There is no language dysfunction. The patient recalls 2/3 immediately and after 1 and 3 minutes. Judgment and abstract thinkings are normal. The patient denies hallucination or delusion. Cranial nerves are intact. Motor Examination: No focal muscle bulk was seen. The tone is normal. The strength is 5/5 throughout. Sensory examination revealed normal pinprick and light touch senses throughout. Deep tendon reflexes are symmetric and hypoactive with absent Achilles responses. Gait: The patient uses a walker without assistance. LABORATORY DATA: From 02/06/2018 revealed Dilantin level of 2.4. IMPRESSION: 1. History of seizure disorder of unknown etiology and ____ with current subtherapeutic level. 2. Multiple medical problems include hypothyroidism, diabetes mellitus, hypertension, hyperlipidemia, gastroesophageal reflux disease and coronary artery disease. 3. Multiple psychiatric problems includes bipolar disorder, anxiety and schizoaffective disorder. M Claudia STILES MD DR: ANT/haile JOB#: [id number] / [id number]
--- NOTE | 2018-02-09 00:50 | PN ---
DATE: 02/06/2018 SUBJECTIVE: The patient denies any new medical or neurological complaints. She has not had any recurrent seizures since admission. The last seizure was approximately 2 years ago. OBJECTIVE: GENERAL: Obese white female, not in acute distress. VITAL SIGNS: Blood pressure 132/82, respiratory rate 20, pulse is 94, oxygen saturation 84% and temperature 97.9. HEENT: Normocephalic, atraumatic, otherwise, unremarkable. NECK: Supple. Negative for carotid bruit, lymphadenopathy or thyromegaly. LUNGS: Clear to A and P. CARDIOVASCULAR: Regular rate and rhythm, normal S1, S2. ABDOMEN: Soft. Bowel sounds positive. EXTREMITIES: Negative for cyanosis, clubbing or pitting edema. NEUROLOGIC: Mental status: The patient is alert and oriented x 3. Speech is fluent. There is no language dysfunction. The patient recalls 2/3 immediately and after 1 and 2 minutes. Judgment and abstract thinking are normal. The patient denies hallucination or delusion. Cranial nerves intact. Motor Examination: No focal muscle bulk was seen. The tone is normal. The strength is 4/5 throughout. Sensory examination revealed diminished pinprick and light touch senses in patchy distributions in both lower extremities. Deep tendon reflexes were symmetric and hypoactive with absent Achilles responses. Gait: The patient uses a walker for ambulation. LABORATORY DATA: Dilantin level on 02/06/2018 today was low subtherapeutic at 2.4. IMPRESSION: 1. Longstanding history of seizure and the last seizure was approximately 2 years ago with current subtherapeutic Dilantin level, etiology of her seizure is unknown. It is not clear whether the patient needs anticonvulsant for her previous seizure. 2. Multiple medical problems include hypothyroidism, hypertension, hyperlipidemia, diabetes mellitus, gastroesophageal reflux disease and coronary artery disease. 3. Multiple psychiatric problems include bipolar disorder, probably schizoaffective disorders, anxiety disorders and impulse control disorders. We will obtain an EEG. If it is negative, we will discontinue ____. M Claudia STILES MD DR: ANT/haile JOB#: [id number] / [id number]
--- NOTE | 2018-02-09 00:51 | PN ---
DATE: 02/04/2018 SUBJECTIVE: The patient denies any new medical or neurological complaints. She denies any recurrent seizures. OBJECTIVE: GENERAL: A well-developed, well-nourished female, not in acute distress. VITAL SIGNS: Blood pressure 148/84, respiratory rate 22, pulse is 101, oxygen saturation is 97%, and temperature 97.6. HEENT: Normocephalic, atraumatic, otherwise unremarkable. NECK: Supple. Negative for carotid bruit, lymphadenopathy or thyromegaly. LUNGS: Clear to A and P. CARDIOVASCULAR: Regular rate and rhythm, normal S1, S2. ABDOMEN: Soft. Bowel sounds positive. EXTREMITIES: Negative for cyanosis, clubbing or pitting edema. NEUROLOGIC: Mental status: The patient is alert and oriented x 3. The speech is fluent. There is no language dysfunction, otherwise unremarkable. Cranial nerves are intact. No focal or motor deficit. Sensory: Examination revealed normal pinprick, light touch, vibratory and position senses. Deep tendon reflexes were symmetric and active with absent Achilles responses. Gait: The patient uses a walker for ambulation without assistance. IMPRESSION: 1. Seizure disorder of unknown etiology. The patient has not had recurrent seizure since admission; however, the last seizure was approximately 2 years ago. 2. Multiple medical problems include hypothyroidism, diabetes mellitus, hypertension, hyperlipidemia, gastroesophageal reflux disease, and coronary artery disease. 3. Multiple psychiatric problems include bipolar disorder, rule out schizoaffective disorders and impulse control disorder, and anxiety. RECOMMENDATIONS: 1. Would continue with the current management. Continue with the current medical and psychiatric care. 2. Await Dilantin level after 2 days. M Claudia STILES MD DR: ANT/haile JOB#: [id number] / [id number]
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
--- NOTE | 2018-02-09 03:36 | PN ---
DATE: 02/06/2018 PSYCHIATRIC PROGRESS NOTE This late entry 02/06/2018 covers elements not covered in my initial note of 02/06/2018. SUBJECTIVE: I met with the patient in the evening, the patient slept 9-1/4 hours, had a good night, frequently asking for Xanax for anxiety. REVIEW OF SYSTEMS: No CV, , pulmonary, eye, ENT system symptoms on review. MENTAL STATUS EXAM: Oriented to herself and situation. Speech: Coherent, little pressured at times. Abstraction fair, computation impaired, language function intact. Mood and affect, lability is improved. LABORATORIES: Reviewed. IMPRESSION: Bipolar 1 disorder, mixed with psychotic features. PLAN: Check CBC, CMP, valproic acid level on 02/09/2018 since Depakote was increased on 02/05/2018. Continue rest unchanged per initial note. MAN Chintan BUENO MD DR: LACEY/haile JOB#: [id number] / [id number]
--- NOTE | 2018-02-09 05:07 | PN ---
DATE: 02/07/2018 PSYCHIATRIC PROGRESS NOTE This late entry 02/07/2018 covers elements not covered in my initial note 02/07/2018. SUBJECTIVE: I met with the patient in the evening. The patient did reasonably well previous evening and during the day on 02/07/2018. Dilantin level is low at 2.4, will defer to Dr. Woodson, Neurology. REVIEW OF SYSTEMS: No CV, , pulmonary, eye, ENT system symptoms on review. MENTAL STATUS EXAM: Oriented to herself and situation. Speech is coherent, at times a little pressured. Abstraction fair, computation impaired, language function intact. Mood and affect, lability is improved. LABORATORIES: Reviewed. IMPRESSION: Bipolar 1 disorder, mixed episode personality disorder. PLAN: Continue current psychotropics. Adjust Dilantin per Dr. Woodson. Depakote has been adjusted since the initial level was low at 16. We will repeat labs level and then adjust to reach a therapeutic level. MAN Chintan BUENO MD DR: LACEY/haile JOB#: [id number] / [id number]
[2018-02-09] MEDS: LEVOTHYROXINE 75 MCG TABLET PO SCH (05:41)
[2018-02-09 06:40] VITALS: BP 149/70
[2018-02-09] MEDS: INSULIN LISPRO 300 UNITS/3 ML INSULN.PEN. SQ SCH ×3 (07:55→17:25)
[2018-02-09] MEDS: CALCIUM POLYCARBOPHIL 625 MG TABLET PO SCH (08:43)
[2018-02-09] MEDS: MAGNESIUM OXIDE 400 MG TABLET PO SCH ×3 (08:43→17:23)
[2018-02-09] MEDS: metFORMIN 500 MG TABLET PO SCH ×2 (08:43→17:23)
[2018-02-09] MEDS: OMEGA-3 FATTY ACIDS/FISH OIL 1,000 MG CAPSULE. PO SCH (08:44)
[2018-02-09] MEDS: busPIRone 5 MG TABLET. PO SCH ×4 (08:44→20:33)
[2018-02-09] MEDS: FUROSEMIDE 40 MG TABLET PO SCH (08:44)
[2018-02-09] MEDS: DULoxetine HCL 60 MG CAPSULE.DR PO SCH (08:44)
[2018-02-09] MEDS: PREGABALIN 50 MG CAPSULE PO SCH ×2 (08:44→20:36)
[2018-02-09] MEDS: DIVALPROEX 125 MG CAP.SPRINK PO SCH ×2 (08:44→20:33)
[2018-02-09] MEDS: LACTOBACILLUS RHAMNOSUS GG 1 CAPSULE. PO SCH (08:44)
[2018-02-09] MEDS: POTASSIUM CHLORIDE 10 MEQ TABLET.ER. PO SCH (08:45)
[2018-02-09] MEDS: MELOXICAM 7.5 MG TABLET PO SCH (08:45)
[2018-02-09] MEDS: INSULIN GLARGINE 300 UNITS/3 ML INSULN.PEN. SQ SCH ×2 (08:49→20:37)
--- NOTE | 2018-02-09 12:55 | PN ---
DATE: 02/08/2018 SUBJECTIVE: The patient denies new medical or neurological complaints. She has not had any seizure; however, she is anxious, restless, and having tremor of the hands. The tremor is usually aggravated by anxiety and using her hands when she writes or holds objects with both hands. OBJECTIVE: GENERAL: Obese white female, not in acute distress. VITAL SIGNS: Blood pressure 125/66, respiratory rate 20, pulse is 82, temperature 98.1, oxygen saturation 96% on room air. HEENT: Normocephalic, atraumatic, otherwise unremarkable. NECK: Supple. Negative for carotid bruit, lymphadenopathy, JVD or thyromegaly. LUNGS: Clear to A and P. CARDIOVASCULAR: Regular rhythm, normal S1, S2. ABDOMEN: Soft. Bowel sounds positive. EXTREMITIES: Negative for cyanosis, clubbing, pitting edema. NEUROLOGICAL EXAM: Mental Status: The patient is alert and oriented x 3. The speech is fluent. There is no language dysfunction. Memory: The patient recalls 2/3 immediately and 1/3 after 1 and 3 minutes. Judgment abstract and thinkings are fair. The patient denies hallucination or delusion. Cranial nerves are intact. Motor examination revealed no focal muscle bulk was seen. The tone is normal. The strength is 4/5 throughout. The patient has postural and kinetic tremors of both hands this morning. She has not had a tremor in previous visit. Deep tendon reflexes were symmetric and hypoactive with absent Achilles responses. Gait: The patient uses a walker for ambulation. LABORATORY DATA: CBC revealed white blood cells of 8000, hemoglobin 14.3, hematocrit 42.3, platelet count 270,000. Chemistry revealed sodium of 142, potassium is 4, chloride 103, CO2 is 32, BUN 11, creatinine 0.8, glucose is 115, calcium 8.7. Liver enzymes, low AST at 8. Valproic acid is 31 today. IMPRESSION: 1. History of seizure disorder, stable, etiology uncertain. 2. Multiple medical problems include diabetes mellitus, hyperlipidemia, hypothyroidism. 3. Multiple psychiatric problems include bipolar disorder, probably type 1, impulse control disorder, rule out schizoaffective disorders and anxiety disorders. The patient has suicidal ideations. RECOMMENDATIONS: 1. Await for EEG tomorrow. If EEG is normal, we will discontinue Dilantin as the patient has not had any recurrent seizures with very subtherapeutic level of Dilantin. 2. Continue with current medical and psychiatric care. M Claudia STILES MD DR: ANT/haile JOB#: [id number] / [id number]
[2018-02-09 16:04] VITALS: BP 117/69
[2018-02-09] MEDS: ATORVASTATIN CALCIUM 20 MG TABLET PO SCH (20:32)
[2018-02-09] MEDS: risperiDONE 2 MG TABLET. PO SCH (20:33)
[2018-02-09] MEDS: PHENYTOIN SODIUM EXTENDED 100 MG CAPSULE PO SCH (20:33)
[2018-02-09] MEDS: ALPRAZolam 0.5 MG TABLET PO SCH (20:36)
--- NOTE | 2018-02-09 21:41 | PDOC ---
Exam Note: Jonathan Note: Please also refer to the separate dictated note~for this date of service dictated separately.~Patient seen individually. Discussed the patient with Nursing staff reviewed the chart.~Reviewed interim history and current functioning. Reviewed vital signs,~Labs/ Radiology~and current medications noted below. Continue current treatment with the changes noted in the dictated addendum note Assessment: Vital Signs: Vital Signs Date Time Temp Pulse Resp B/P (MAP) Pulse Ox O2 Delivery O2 Flow Rate FiO2 02/09/18 16:31 94 02/09/18 16:04 97.0 63 16 117/69 (85) I&O Intake and Output 02/09/18 07:00 Intake Total 1560 ml Balance 1560 ml Intake Oral 1560 ml # Voids 1 Labs: Laboratory Tests Test 02/09/18 07:11 02/09/18 11:15 02/09/18 16:28 02/09/18 19:32 Glucose (Fingerstick) 117 mg/dL (70-99) H 218 mg/dL (70-99) H 163 mg/dL (70-99) H 150 mg/dL (70-99) H Current Medications: Meds: Current Medications Acetaminophen (Tylenol) 650 mg PRN Q6HRS PRN PO PAIN / TEMP; Start 02/03/18 at 02:15; Stop 02/06/18 at 13:39; Status DC Multi-Ingredient Ointment (Analgesic [place]) 1 jurgen PRN QID PRN TP MUSCLE PAIN; Start 02/03/18 at 02:15 Al Hydroxide/Mg Hydroxide (Mylanta Plus Xs) 15 ml PRN AFTMEALHC PRN PO DYSPEPSIA; Start 02/03/18 at 02:15 Magnesium Hydroxide (Milk Of Magnesia) 2,400 mg PRN QHS PRN PO CONSTIPATION; Start 02/03/18 at 02:15 Acetaminophen (Tylenol) 650 mg PRN Q4HRS PRN PO PAIN / TEMP; Start 02/03/18 at 05:00 Alprazolam (Xanax) 0.5 mg PRN TID PRN PO ANXIETY / AGITATION Last administered on 02/08/18at 08:24; Start 02/03/18 at 05:00 Alprazolam (Xanax) 0.5 mg QHS PO Last administered on 02/09/18at 20:36; Start at 21:00 Buspirone HCl (Buspar) 5 mg TID PO Last administered on 02/04/18 08:37; Start 02/03/18 at 09:00; Stop 02/04/18 at 13:41; Status DC Acetaminophen/ Butalbital/ Caffeine (Fioricet) 1 tab PRN Q8HRS PRN PO HEADACHE ; Start 02/03/18 at 05:00 Calcium Polycarbophil (Fibercon) 625 mg DAILY PO Last administered on 02/09/18 08:43; Start 02/03/18 at 09:00 Docusate Sodium (Colace) 100 mg PRN DAILY PRN PO CONSTIPATION; Start 02/03/18 at 05:00 Duloxetine HCl (Cymbalta) 60 mg DAILY PO Last administered on 02/09/18 08:44; Start 02/03/18 at 09:00 Furosemide (Lasix) 40 mg DAILY PO Last administered on 02/09/18 08:44; Start at 09:00 Levothyroxine Sodium (Synthroid) 75 mcg DAILY06 PO Last administered on 05:41; Start 02/03/18 at 06:00 Magnesium Oxide (Magnesium Oxide) 400 mg TIDWMEALS PO Last administered on 17:23; Start 02/03/18 at 08:00 Meloxicam (Mobic) 7.5 mg DAILY PO Last administered on 02/09/18 08:45; Start at 09:00 Metformin HCl (Glucophage) 1,000 mg BIDWMEALS PO Last administered on 02/09/18 17:23; Start 02/03/18 at 08:00 Potassium Chloride (Klor-Con) 10 meq DAILY PO Last administered on 02/09/18 08: 45; Start 02/03/18 at 09:00 Pregabalin (Lyrica) 50 mg BID PO Last administered on 02/09/18 20:36; Start at 09:00 Risperidone (RisperDAL) 4 mg HS PO Last administered on 02/09/18 20:33; Start 02/03/18 at 21:00 Tramadol HCl (Ultram) 50 mg PRN Q4HRS PRN PO PAIN Last administered on 14:56; Start 02/03/18 at 05:00 Valproic Acid (Depakene) 250 mg BID PO Last administered on 02/05/18 08:26; Start 02/03/18 at 09:00; Stop 02/05/18 at 19:18; Status DC Atorvastatin Calcium (Lipitor) 80 mg QHS PO Last administered on 02/09/18 20:32 ; Start 02/03/18 at 21:00 Non-Formulary Medication (Cinnamon Bark (Cinnamon)) 1,000 mg DAILY PO ; Start at 09:00; Status UNV Insulin Glargine (Lantus) 40 units HS SQ Last administered on 02/09/18 20:37; Start 02/03/18 at 21:00 Insulin Glargine (Lantus) 50 units DAILYWBKFT SQ Last administered on 02/09/18 08:49; Start 02/03/18 at 08:00 Non-Formulary Medication (Ipratropium/ Albuterol Sulfate (Combivent Respimat Inhal)) 2 puff PRN Q4HRS PRN INH SHORTNESS OF BREATH; Start 02/03/18 at 05:00; Stop 02/03/18 at 07:10; Status DC Lactobacillus Rhamnosus (Culturelle) 1 cap DAILY PO Last administered on at 08:44; Start 02/03/18 at 09:00 Non-Formulary Medication (Menthol (Biofreeze)) 1 jurgen PRN QID PRN TP MUSCLE PAIN ; Start 02/03/18 at 05:00; Stop 02/03/18 at 07:08; Status DC Fish Oil (Fish Oil) 1,000 mg DAILY PO Last administered on 02/09/18at 08:44; Start 02/03/18 at 09:00 Ondansetron HCl (Zofran Odt) 4 mg PRN Q6HRS PRN PO NAUSEA/VOMITING; Start 02/03 at 05:00 Phenytoin Sodium (Dilantin) 300 mg QHS PO Last administered on 02/09/18at 20:33; Start 02/03/18 at 21:00 Albuterol/ Ipratropium (Duoneb) 3 ml PRN Q4HRS PRN NEB SHORTNESS OF BREATH; Start 02/03/18 at 07:15 Buspirone HCl (Buspar) 5 mg QID PO Last administered on 02/09/18at 20:33; Start 02/04/18 at 17:00 Valproic Acid (Depakene) 375 mg BID PO ; Start 02/05/18 at 21:00; Stop 02/05/18 at 21:00; Status DC Divalproex Sodium (Depakote Sprinkles) 375 mg BID PO Last administered on at 08:44; Start 02/05/18 at 21:00; Stop 02/09/18 at 18:34; Status DC Insulin Human Lispro (HumaLOG) 0-5 UNITS TIDWMEALS SQ Last administered on at 17:25; Start 02/07/18 at 17:00 Dextrose 12.5 gm PRN Q15MIN PRN IV SEE COMMENTS; Start 02/07/18 at 15:15 Divalproex Sodium (Depakote Sprinkles) 500 mg BID PO Last administered on at 20:33; Start 02/09/18 at 21:00 Active Scripts Active Reported Xanax (Alprazolam) 0.5 Mg Tablet 0.5 Mg PO PRN TID PRN Tramadol Hcl (Tramadol HCl) 50 Mg Tablet 50 Mg PO PRN Q4HRS PRN Hjiynd-Petzmryi-Gbsf 50-325-40 (Butalb/Acetaminophen/Caffeine) 1 Each Tablet 1 Tab PO PRN Q8HRS PRN Xanax (Alprazolam) 0.5 Mg Tablet 0.5 Mg PO QHS Valproic Acid 250 Mg Capsule 250 Mg PO BID Biofreeze (Menthol) 118 Ml Gel..ml. 1 Jurgen TP PRN QID PRN Zofran (Ondansetron Hcl) 4 Mg Tablet 4 Mg PO PRN Q6HRS PRN Mobic (Meloxicam) 7.5 Mg Tablet 7.5 Mg PO DAILY Lasix (Furosemide) 40 Mg Tablet 40 Mg PO DAILY Fish Oil 1,000 Mg Softgel ([place]-3/Dha/Epa/Fish Oil) 1 Each Capsule 1 Cap PO DAILY Cinnamon (Cinnamon Bark) 500 Mg Capsule 1,000 Mg PO DAILY Phenytoin Sodium Extended 300 Mg Capsule 300 Mg PO QHS Lyrica (Pregabalin) 50 Mg Capsule 50 Mg PO BID Duloxetine Hcl 60 Mg Capsule.dr 60 Mg PO DAILY Combivent Respimat Inhal (Ipratropium/Albuterol Sulfate) 4 Gm Aer.w.adap 2 Puff INH PRN Q4HRS PRN Fibercon (Calcium Polycarbophil) 625 Mg Tablet 625 Mg PO DAILY Probiotic (Lactobacillus Acidophilus) 1 Each Capsule 1 Tab PO DAILY Levemir (Insulin Detemir) 100 Unit/1 Ml Vial 40 Unit SQ HS Levemir (Insulin Detemir) 100 Unit/1 Ml Vial 50 Unit SQ DAILYWBKFT Magnesium Oxide 400 Mg Tablet 400 Mg PO TIDWMEALS Colace (Docusate Sodium) 100 Mg Capsule 100 Mg PO PRN DAILY PRN Risperidone 0.5 Mg Tablet 4 Mg PO HS give with 4 mg dose to make 4.5 mg dose Buspirone Hcl 5 Mg Tablet 5 Mg PO TID Do not administer with grapefruit juice Tylenol (Acetaminophen) 325 Mg Tablet 650 Mg PO PRN Q4HRS PRN Max Acetaminophen dose is 4000mg in 24 hours from all sources for adults Levothyroxine Sodium 75 Mcg Tablet 75 Mcg PO DAILY06 Administer on an empty stomach: 1 hour before or 2 hours after a meal Metformin Hcl 500 Mg Tablet 1,000 Mg PO BIDWMEALS Give with meals Potassium Chloride 10 Meq Tab.er.prt 10 Meq PO DAILY On Thursday and Thursday Atorvastatin Calcium 80 Mg Tablet 80 Mg PO QHS I have reviewed the current psychotropics carefully including drug interactions. Risk benefit ratio favors no change other than as noted in my dictated progress note. Diagnosis: Problems: (1) Suicidal ideation (2) Medical clearance for psychiatric admission (3) Suicidal ideation (4) Anxiety disorder (5) Suicidal ideations (6) Homicidal ideation (7) Bipolar affective disorder, mixed (8) Borderline intellectual disability (9) Impulse control disorder KIT BUENO MD February 09, 2018 21:41
--- NOTE | 2018-02-10 03:26 | PN ---
DATE: 02/08/2018 This is a late entry for 02/08/2018 covers elements not covered in my initial note. SUBJECTIVE: I met with the patient in the evening. The patient slept reasonably well, snores significantly, has sleep apnea, refuses CPAP, still remains anxious, labile. REVIEW OF SYSTEMS: No CV, , pulmonary, eye, ENT system symptoms on review. MENTAL STATUS EXAM: Oriented to herself and situation. Speech coherent, less pressured. Abstraction fair, computation impaired, language function intact. Mood and affect remains somewhat anxious, labile. Per Dr. Woodson, EEG is awaited. IMPRESSION: Bipolar 1 disorder, mixed with psychotic features. PLAN: Continue current psychotropics. Check labs on 02/09/2018. Adjust thereafter for the Depakote. MAN Chintan BUENO MD DR: LACEY/haile JOB#: [id number] / [id number]
[2018-02-10] MEDS: LEVOTHYROXINE 75 MCG TABLET PO SCH (05:41)
[2018-02-10 06:25] VITALS: BP 160/73
[2018-02-10] MEDS: metFORMIN 500 MG TABLET PO SCH ×2 (08:43→17:35)
[2018-02-10] MEDS: DIVALPROEX 125 MG CAP.SPRINK PO SCH ×2 (08:44→20:20)
[2018-02-10] MEDS: MAGNESIUM OXIDE 400 MG TABLET PO SCH ×3 (08:44→17:35)
[2018-02-10] MEDS: PREGABALIN 50 MG CAPSULE PO SCH ×2 (08:44→20:24)
[2018-02-10] MEDS: DULoxetine HCL 60 MG CAPSULE.DR PO SCH (08:44)
[2018-02-10] MEDS: CALCIUM POLYCARBOPHIL 625 MG TABLET PO SCH (08:44)
[2018-02-10] MEDS: MELOXICAM 7.5 MG TABLET PO SCH (08:44)
[2018-02-10] MEDS: POTASSIUM CHLORIDE 10 MEQ TABLET.ER. PO SCH (08:44)
[2018-02-10] MEDS: LACTOBACILLUS RHAMNOSUS GG 1 CAPSULE. PO SCH (08:44)
[2018-02-10] MEDS: FUROSEMIDE 40 MG TABLET PO SCH (08:44)
[2018-02-10] MEDS: OMEGA-3 FATTY ACIDS/FISH OIL 1,000 MG CAPSULE. PO SCH (08:44)
[2018-02-10] MEDS: busPIRone 5 MG TABLET. PO SCH ×4 (08:45→20:21)
[2018-02-10] MEDS: ALPRAZolam 0.5 MG TABLET PO PRN (08:46)
[2018-02-10] MEDS: INSULIN LISPRO 300 UNITS/3 ML INSULN.PEN. SQ SCH ×3 (08:47→17:36)
[2018-02-10] MEDS: INSULIN GLARGINE 300 UNITS/3 ML INSULN.PEN. SQ SCH ×2 (08:49→20:23)
[2018-02-10 17:01] VITALS: BP 133/89
[2018-02-10] MEDS: ATORVASTATIN CALCIUM 20 MG TABLET PO SCH (20:20)
[2018-02-10] MEDS: risperiDONE 2 MG TABLET. PO SCH (20:21)
[2018-02-10] MEDS: ALPRAZolam 0.5 MG TABLET PO SCH (20:24)
--- NOTE | 2018-02-10 21:06 | PDOC ---
Exam Note: Jonathan Note: Please also refer to the separate dictated note~for this date of service dictated separately.~Patient seen individually. Discussed the patient with Nursing staff reviewed the chart.~Reviewed interim history and current functioning. Reviewed vital signs,~Labs/ Radiology~and current medications noted below. Continue current treatment with the changes noted in the dictated addendum note Assessment: Vital Signs: Vital Signs Date Time Temp Pulse Resp B/P (MAP) Pulse Ox O2 Delivery O2 Flow Rate FiO2 02/10/18 17:01 97.9 62 20 133/89 (104) 98 I&O Intake and Output 02/10/18 07:00 Intake Total 1440 ml Balance 1440 ml Intake Oral 1440 ml Labs: Laboratory Tests Test 02/10/18 07:53 02/10/18 11:27 02/10/18 16:31 02/10/18 19:25 Glucose (Fingerstick) 89 mg/dL (70-99) 164 mg/dL (70-99) H 175 mg/dL (70-99) H 216 mg/dL (70-99) H Current Medications: Meds: Current Medications Acetaminophen (Tylenol) 650 mg PRN Q6HRS PRN PO PAIN / TEMP; Start 02/03/18 at 02:15; Stop 02/06/18 at 13:39; Status DC Multi-Ingredient Ointment (Analgesic [place]) 1 jurgen PRN QID PRN TP MUSCLE PAIN; Start 02/03/18 at 02:15 Al Hydroxide/Mg Hydroxide (Mylanta Plus Xs) 15 ml PRN AFTMEALHC PRN PO DYSPEPSIA; Start 02/03/18 at 02:15 Magnesium Hydroxide (Milk Of Magnesia) 2,400 mg PRN QHS PRN PO CONSTIPATION; Start 02/03/18 at 02:15 Acetaminophen (Tylenol) 650 mg PRN Q4HRS PRN PO PAIN / TEMP; Start 02/03/18 at 05:00 Alprazolam (Xanax) 0.5 mg PRN TID PRN PO ANXIETY / AGITATION Last administered on 02/10/18at 08:46; Start 02/03/18 at 05:00 Alprazolam (Xanax) 0.5 mg QHS PO Last administered on 02/10/18at 20:24; Start at 21:00 Buspirone HCl (Buspar) 5 mg TID PO Last administered on 02/04/18 08:37; Start 02/03/18 at 09:00; Stop 02/04/18 at 13:41; Status DC Acetaminophen/ Butalbital/ Caffeine (Fioricet) 1 tab PRN Q8HRS PRN PO HEADACHE ; Start 02/03/18 at 05:00 Calcium Polycarbophil (Fibercon) 625 mg DAILY PO Last administered on 02/10/18 08:44; Start 02/03/18 at 09:00 Docusate Sodium (Colace) 100 mg PRN DAILY PRN PO CONSTIPATION; Start 02/03/18 at 05:00 Duloxetine HCl (Cymbalta) 60 mg DAILY PO Last administered on 02/10/18 08:44; Start 02/03/18 at 09:00 Furosemide (Lasix) 40 mg DAILY PO Last administered on 02/10/18 08:44; Start at 09:00 Levothyroxine Sodium (Synthroid) 75 mcg DAILY06 PO Last administered on 05:41; Start 02/03/18 at 06:00 Magnesium Oxide (Magnesium Oxide) 400 mg TIDWMEALS PO Last administered on 17:35; Start 02/03/18 at 08:00 Meloxicam (Mobic) 7.5 mg DAILY PO Last administered on 02/10/18 08:44; Start at 09:00 Metformin HCl (Glucophage) 1,000 mg BIDWMEALS PO Last administered on 02/10/18 17:35; Start 02/03/18 at 08:00 Potassium Chloride (Klor-Con) 10 meq DAILY PO Last administered on 02/10/18 08: 44; Start 02/03/18 at 09:00 Pregabalin (Lyrica) 50 mg BID PO Last administered on 02/10/18 20:24; Start at 09:00 Risperidone (RisperDAL) 4 mg HS PO Last administered on 02/10/18 20:21; Start 02/03/18 at 21:00 Tramadol HCl (Ultram) 50 mg PRN Q4HRS PRN PO PAIN Last administered on 5/1/ 18at 14:56; Start 02/03/18 at 05:00 Valproic Acid (Depakene) 250 mg BID PO Last administered on 02/05/18at 08:26; Start 02/03/18 at 09:00; Stop 02/05/18 at 19:18; Status DC Atorvastatin Calcium (Lipitor) 80 mg QHS PO Last administered on 02/10/18at 20:20 ; Start 02/03/18 at 21:00 Non-Formulary Medication (Cinnamon Bark (Cinnamon)) 1,000 mg DAILY PO ; Start at 09:00; Status UNV Insulin Glargine (Lantus) 40 units HS SQ Last administered on 02/10/18at 20:23; Start 02/03/18 at 21:00 Insulin Glargine (Lantus) 50 units DAILYWBKFT SQ Last administered on 02/10/18at 08:49; Start 02/03/18 at 08:00 Non-Formulary Medication (Ipratropium/ Albuterol Sulfate (Combivent Respimat Inhal)) 2 puff PRN Q4HRS PRN INH SHORTNESS OF BREATH; Start 02/03/18 at 05:00; Stop 02/03/18 at 07:10; Status DC Lactobacillus Rhamnosus (Culturelle) 1 cap DAILY PO Last administered on at 08:44; Start 02/03/18 at 09:00 Non-Formulary Medication (Menthol (Biofreeze)) 1 jurgen PRN QID PRN TP MUSCLE PAIN ; Start 02/03/18 at 05:00; Stop 02/03/18 at 07:08; Status DC Fish Oil (Fish Oil) 1,000 mg DAILY PO Last administered on 02/10/18at 08:44; Start 02/03/18 at 09:00 Ondansetron HCl (Zofran Odt) 4 mg PRN Q6HRS PRN PO NAUSEA/VOMITING; Start 02/03 at 05:00 Phenytoin Sodium (Dilantin) 300 mg QHS PO Last administered on 02/09/18at 20:33; Start 02/03/18 at 21:00; Stop 02/10/18 at 09:36; Status DC Albuterol/ Ipratropium (Duoneb) 3 ml PRN Q4HRS PRN NEB SHORTNESS OF BREATH; Start 02/03/18 at 07:15 Buspirone HCl (Buspar) 5 mg QID PO Last administered on 02/10/18at 20:21; Start 02/04/18 at 17:00 Valproic Acid (Depakene) 375 mg BID PO ; Start 02/05/18 at 21:00; Stop 02/05/18 at 21:00; Status DC Divalproex Sodium (Depakote Sprinkles) 375 mg BID PO Last administered on at 08:44; Start 02/05/18 at 21:00; Stop 02/09/18 at 18:34; Status DC Insulin Human Lispro (HumaLOG) 0-5 UNITS TIDWMEALS SQ Last administered on at 17:36; Start 02/07/18 at 17:00 Dextrose 12.5 gm PRN Q15MIN PRN IV SEE COMMENTS; Start 02/07/18 at 15:15 Divalproex Sodium (Depakote Sprinkles) 500 mg BID PO Last administered on at 20:20; Start 02/09/18 at 21:00 Active Scripts Active Reported Xanax (Alprazolam) 0.5 Mg Tablet 0.5 Mg PO PRN TID PRN Tramadol Hcl (Tramadol HCl) 50 Mg Tablet 50 Mg PO PRN Q4HRS PRN Pvvjvy-Licwohur-Tvft 50-325-40 (Butalb/Acetaminophen/Caffeine) 1 Each Tablet 1 Tab PO PRN Q8HRS PRN Xanax (Alprazolam) 0.5 Mg Tablet 0.5 Mg PO QHS Valproic Acid 250 Mg Capsule 250 Mg PO BID Biofreeze (Menthol) 118 Ml Gel..ml. 1 Jurgen TP PRN QID PRN Zofran (Ondansetron Hcl) 4 Mg Tablet 4 Mg PO PRN Q6HRS PRN Mobic (Meloxicam) 7.5 Mg Tablet 7.5 Mg PO DAILY Lasix (Furosemide) 40 Mg Tablet 40 Mg PO DAILY Fish Oil 1,000 Mg Softgel ([place]-3/Dha/Epa/Fish Oil) 1 Each Capsule 1 Cap PO DAILY Cinnamon (Cinnamon Bark) 500 Mg Capsule 1,000 Mg PO DAILY Phenytoin Sodium Extended 300 Mg Capsule 300 Mg PO QHS Lyrica (Pregabalin) 50 Mg Capsule 50 Mg PO BID Duloxetine Hcl 60 Mg Capsule.dr 60 Mg PO DAILY Combivent Respimat Inhal (Ipratropium/Albuterol Sulfate) 4 Gm Aer.w.adap 2 Puff INH PRN Q4HRS PRN Fibercon (Calcium Polycarbophil) 625 Mg Tablet 625 Mg PO DAILY Probiotic (Lactobacillus Acidophilus) 1 Each Capsule 1 Tab PO DAILY Levemir (Insulin Detemir) 100 Unit/1 Ml Vial 40 Unit SQ HS Levemir (Insulin Detemir) 100 Unit/1 Ml Vial 50 Unit SQ DAILYWBKFT Magnesium Oxide 400 Mg Tablet 400 Mg PO TIDWMEALS Colace (Docusate Sodium) 100 Mg Capsule 100 Mg PO PRN DAILY PRN Risperidone 0.5 Mg Tablet 4 Mg PO HS give with 4 mg dose to make 4.5 mg dose Buspirone Hcl 5 Mg Tablet 5 Mg PO TID Do not administer with grapefruit juice Tylenol (Acetaminophen) 325 Mg Tablet 650 Mg PO PRN Q4HRS PRN Max Acetaminophen dose is 4000mg in 24 hours from all sources for adults Levothyroxine Sodium 75 Mcg Tablet 75 Mcg PO DAILY06 Administer on an empty stomach: 1 hour before or 2 hours after a meal Metformin Hcl 500 Mg Tablet 1,000 Mg PO BIDWMEALS Give with meals Potassium Chloride 10 Meq Tab.er.prt 10 Meq PO DAILY On Thursday and Thursday Atorvastatin Calcium 80 Mg Tablet 80 Mg PO QHS I have reviewed the current psychotropics carefully including drug interactions. Risk benefit ratio favors no change other than as noted in my dictated progress note. Diagnosis: Problems: (1) Suicidal ideation (2) Medical clearance for psychiatric admission (3) Suicidal ideation (4) Anxiety disorder (5) Suicidal ideations (6) Homicidal ideation (7) Bipolar affective disorder, mixed (8) Borderline intellectual disability (9) Impulse control disorder KIT BUENO MD February 10, 2018 21:05
--- NOTE | 2018-02-10 23:38 | PN ---
DATE: 02/09/2018 PSYCHIATRIC PROGRESS NOTE This is a late entry for 02/09/2018, covers elements not covered in my initial note of 02/09/2018. SUBJECTIVE: I met with the patient in the evening. The patient slept 7 hours. Her son visited and she is quite anxious, restless, hyperverbal during the day. REVIEW OF SYSTEMS: No CV, , pulmonary, eye system symptoms on review. MENTAL STATUS EXAM: Oriented to herself and situation. Speech coherent, rapid at times. Abstraction fair, computation impaired, language function intact, attention span short. Mood and affect somewhat labile, grandiose at times. LABORATORY DATA: Reviewed. Valproic acid level 31. IMPRESSION: Bipolar 1 disorder, mixed. PLAN: Increase Depakote from 375 mg b.i.d. to 500 mg b.i.d. Check CBC, CMP, valproic acid level in 3 days. Rest unchanged. MAN Chintan BUENO MD DR: LACEY/haile JOB#: [id number] / [id number]
[2018-02-11 05:48] VITALS: BP 140/82
[2018-02-11] MEDS: LEVOTHYROXINE 75 MCG TABLET PO SCH (06:11)
[2018-02-11] MEDS: INSULIN LISPRO 300 UNITS/3 ML INSULN.PEN. SQ SCH ×3 (08:01→17:26)
[2018-02-11] MEDS: MAGNESIUM OXIDE 400 MG TABLET PO SCH ×3 (09:07→17:54)
[2018-02-11] MEDS: busPIRone 5 MG TABLET. PO SCH ×2 (09:07→12:34)
[2018-02-11] MEDS: OMEGA-3 FATTY ACIDS/FISH OIL 1,000 MG CAPSULE. PO SCH (09:07)
[2018-02-11] MEDS: CALCIUM POLYCARBOPHIL 625 MG TABLET PO SCH (09:07)
[2018-02-11] MEDS: DULoxetine HCL 60 MG CAPSULE.DR PO SCH (09:07)
[2018-02-11] MEDS: DIVALPROEX 125 MG CAP.SPRINK PO SCH ×2 (09:07→20:19)
[2018-02-11] MEDS: POTASSIUM CHLORIDE 10 MEQ TABLET.ER. PO SCH (09:07)
[2018-02-11] MEDS: MELOXICAM 7.5 MG TABLET PO SCH (09:08)
[2018-02-11] MEDS: LACTOBACILLUS RHAMNOSUS GG 1 CAPSULE. PO SCH (09:08)
[2018-02-11] MEDS: FUROSEMIDE 40 MG TABLET PO SCH (09:08)
[2018-02-11] MEDS: metFORMIN 500 MG TABLET PO SCH ×2 (09:08→17:54)
[2018-02-11] MEDS: INSULIN GLARGINE 300 UNITS/3 ML INSULN.PEN. SQ SCH ×2 (09:10→20:20)
[2018-02-11] MEDS: PREGABALIN 50 MG CAPSULE PO SCH ×2 (09:13→20:22)
[2018-02-11 16:32] VITALS: BP 149/75
[2018-02-11] MEDS: risperiDONE 2 MG TABLET. PO SCH (20:19)
[2018-02-11] MEDS: ATORVASTATIN CALCIUM 20 MG TABLET PO SCH (20:19)
[2018-02-11] MEDS: ALPRAZolam 0.5 MG TABLET PO SCH (20:21)
[2018-02-11] MEDS: busPIRone 10 MG TABLET. PO SCH (20:22)
--- NOTE | 2018-02-11 21:08 | PDOC ---
Exam Note: Jonathan Note: Please also refer to the separate dictated note~for this date of service dictated separately.~Patient seen individually. Discussed the patient with Nursing staff reviewed the chart.~Reviewed interim history and current functioning. Reviewed vital signs,~Labs/ Radiology~and current medications noted below. Continue current treatment with the changes noted in the dictated addendum note Assessment: Vital Signs: Vital Signs Date Time Temp Pulse Resp B/P (MAP) Pulse Ox O2 Delivery O2 Flow Rate FiO2 02/11/18 16:32 97.2 88 18 149/75 (99) 95 I&O Intake and Output 02/11/18 07:00 Intake Total 1440 ml Balance 1440 ml Intake Oral 1440 ml Labs: Laboratory Tests Test 02/11/18 07:17 02/11/18 11:41 02/11/18 16:50 02/11/18 19:20 Glucose (Fingerstick) 135 mg/dL (70-99) H 238 mg/dL (70-99) H 106 mg/dL (70-99) H 186 mg/dL (70-99) H Current Medications: Meds: Current Medications Acetaminophen (Tylenol) 650 mg PRN Q6HRS PRN PO PAIN / TEMP; Start 02/03/18 at 02:15; Stop 02/06/18 at 13:39; Status DC Multi-Ingredient Ointment (Analgesic [place]) 1 jurgen PRN QID PRN TP MUSCLE PAIN; Start 02/03/18 at 02:15 Al Hydroxide/Mg Hydroxide (Mylanta Plus Xs) 15 ml PRN AFTMEALHC PRN PO DYSPEPSIA; Start 02/03/18 at 02:15 Magnesium Hydroxide (Milk Of Magnesia) 2,400 mg PRN QHS PRN PO CONSTIPATION; Start 02/03/18 at 02:15 Acetaminophen (Tylenol) 650 mg PRN Q4HRS PRN PO PAIN / TEMP; Start 02/03/18 at 05:00 Alprazolam (Xanax) 0.5 mg PRN TID PRN PO ANXIETY / AGITATION Last administered on 02/10/18at 08:46; Start 02/03/18 at 05:00 Alprazolam (Xanax) 0.5 mg QHS PO Last administered on 02/11/18at 20:21; Start at 21:00 Buspirone HCl (Buspar) 5 mg TID PO Last administered on 02/04/18 08:37; Start 02/03/18 at 09:00; Stop 02/04/18 at 13:41; Status DC Acetaminophen/ Butalbital/ Caffeine (Fioricet) 1 tab PRN Q8HRS PRN PO HEADACHE ; Start 02/03/18 at 05:00 Calcium Polycarbophil (Fibercon) 625 mg DAILY PO Last administered on 02/11/18 09:07; Start 02/03/18 at 09:00 Docusate Sodium (Colace) 100 mg PRN DAILY PRN PO CONSTIPATION; Start 02/03/18 at 05:00 Duloxetine HCl (Cymbalta) 60 mg DAILY PO Last administered on 02/11/18 09:07; Start 02/03/18 at 09:00 Furosemide (Lasix) 40 mg DAILY PO Last administered on 02/11/18 09:08; Start at 09:00 Levothyroxine Sodium (Synthroid) 75 mcg DAILY06 PO Last administered on 06:11; Start 02/03/18 at 06:00 Magnesium Oxide (Magnesium Oxide) 400 mg TIDWMEALS PO Last administered on 17:54; Start 02/03/18 at 08:00 Meloxicam (Mobic) 7.5 mg DAILY PO Last administered on 02/11/18 09:08; Start at 09:00 Metformin HCl (Glucophage) 1,000 mg BIDWMEALS PO Last administered on 02/11/18 17:54; Start 02/03/18 at 08:00 Potassium Chloride (Klor-Con) 10 meq DAILY PO Last administered on 02/11/18 09: 07; Start 02/03/18 at 09:00 Pregabalin (Lyrica) 50 mg BID PO Last administered on 02/11/18 20:22; Start at 09:00 Risperidone (RisperDAL) 4 mg HS PO Last administered on 02/11/18 20:19; Start 02/03/18 at 21:00 Tramadol HCl (Ultram) 50 mg PRN Q4HRS PRN PO PAIN Last administered on 5/1/ 18at 14:56; Start 02/03/18 at 05:00 Valproic Acid (Depakene) 250 mg BID PO Last administered on 02/05/18 08:26; Start 02/03/18 at 09:00; Stop 02/05/18 at 19:18; Status DC Atorvastatin Calcium (Lipitor) 80 mg QHS PO Last administered on 02/11/18 20:19 ; Start 02/03/18 at 21:00 Non-Formulary Medication (Cinnamon Bark (Cinnamon)) 1,000 mg DAILY PO ; Start at 09:00; Status UNV Insulin Glargine (Lantus) 40 units HS SQ Last administered on 02/11/18 20:20; Start 02/03/18 at 21:00 Insulin Glargine (Lantus) 50 units DAILYWBKFT SQ Last administered on 02/11/18 09:10; Start 02/03/18 at 08:00 Non-Formulary Medication (Ipratropium/ Albuterol Sulfate (Combivent Respimat Inhal)) 2 puff PRN Q4HRS PRN INH SHORTNESS OF BREATH; Start 02/03/18 at 05:00; Stop 02/03/18 at 07:10; Status DC Lactobacillus Rhamnosus (Culturelle) 1 cap DAILY PO Last administered on 09:08; Start 02/03/18 at 09:00 Non-Formulary Medication (Menthol (Biofreeze)) 1 jurgen PRN QID PRN TP MUSCLE PAIN ; Start 02/03/18 at 05:00; Stop 02/03/18 at 07:08; Status DC Fish Oil (Fish Oil) 1,000 mg DAILY PO Last administered on 02/11/18 09:07; Start 02/03/18 at 09:00 Ondansetron HCl (Zofran Odt) 4 mg PRN Q6HRS PRN PO NAUSEA/VOMITING; Start 02/03 at 05:00 Phenytoin Sodium (Dilantin) 300 mg QHS PO Last administered on 02/09/18at 20:33; Start 02/03/18 at 21:00; Stop 02/10/18 at 09:36; Status DC Albuterol/ Ipratropium (Duoneb) 3 ml PRN Q4HRS PRN NEB SHORTNESS OF BREATH; Start 02/03/18 at 07:15 Buspirone HCl (Buspar) 5 mg QID PO Last administered on 02/11/18at 12:34; Start 02/04/18 at 17:00; Stop 02/11/18 at 14:23; Status DC Valproic Acid (Depakene) 375 mg BID PO ; Start 02/05/18 at 21:00; Stop 02/05/18 at 21:00; Status DC Divalproex Sodium (Depakote Sprinkles) 375 mg BID PO Last administered on at 08:44; Start 02/05/18 at 21:00; Stop 02/09/18 at 18:34; Status DC Insulin Human Lispro (HumaLOG) 0-5 UNITS TIDWMEALS SQ Last administered on at 12:36; Start 02/07/18 at 17:00 Dextrose 12.5 gm PRN Q15MIN PRN IV SEE COMMENTS; Start 02/07/18 at 15:15 Divalproex Sodium (Depakote Sprinkles) 500 mg BID PO Last administered on at 20:19; Start 02/09/18 at 21:00 Buspirone HCl (Buspar) 10 mg TID PO Last administered on 02/11/18at 20:22; Start 02/11/18 at 21:00 Prenat Multivit/ Edith Endave/Iron/Folic Ac (Multivitamin ) 1 tab DAILY PO ; Start 02/12/18 at 09:00 Active Scripts Active Reported Xanax (Alprazolam) 0.5 Mg Tablet 0.5 Mg PO PRN TID PRN Tramadol Hcl (Tramadol HCl) 50 Mg Tablet 50 Mg PO PRN Q4HRS PRN O[place]deu-Tvuydkju-Ijhb 50-325-40 (Butalb/Acetaminophen/Caffeine) 1 Each Tablet 1 Tab PO PRN Q8HRS PRN Xanax (Alprazolam) 0.5 Mg Tablet 0.5 Mg PO QHS Valproic Acid 250 Mg Capsule 250 Mg PO BID Biofreeze (Menthol) 118 Ml Gel..ml. 1 Jurgen TP PRN QID PRN Zofran (Ondansetron Hcl) 4 Mg Tablet 4 Mg PO PRN Q6HRS PRN Mobic (Meloxicam) 7.5 Mg Tablet 7.5 Mg PO DAILY Lasix (Furosemide) 40 Mg Tablet 40 Mg PO DAILY Fish Oil 1,000 Mg Softgel ([place]-3/Dha/Epa/Fish Oil) 1 Each Capsule 1 Cap PO DAILY Cinnamon (Cinnamon Bark) 500 Mg Capsule 1,000 Mg PO DAILY Phenytoin Sodium Extended 300 Mg Capsule 300 Mg PO QHS Lyrica (Pregabalin) 50 Mg Capsule 50 Mg PO BID Duloxetine Hcl 60 Mg Capsule.dr 60 Mg PO DAILY Combivent Respimat Inhal (Ipratropium/Albuterol Sulfate) 4 Gm Aer.w.adap 2 Puff INH PRN Q4HRS PRN Fibercon (Calcium Polycarbophil) 625 Mg Tablet 625 Mg PO DAILY Probiotic (Lactobacillus Acidophilus) 1 Each Capsule 1 Tab PO DAILY Levemir (Insulin Detemir) 100 Unit/1 Ml Vial 40 Unit SQ HS Levemir (Insulin Detemir) 100 Unit/1 Ml Vial 50 Unit SQ DAILYWBKFT Magnesium Oxide 400 Mg Tablet 400 Mg PO TIDWMEALS Colace (Docusate Sodium) 100 Mg Capsule 100 Mg PO PRN DAILY PRN Risperidone 0.5 Mg Tablet 4 Mg PO HS give with 4 mg dose to make 4.5 mg dose Buspirone Hcl 5 Mg Tablet 5 Mg PO TID Do not administer with grapefruit juice Tylenol (Acetaminophen) 325 Mg Tablet 650 Mg PO PRN Q4HRS PRN Max Acetaminophen dose is 4000mg in 24 hours from all sources for adults Levothyroxine Sodium 75 Mcg Tablet 75 Mcg PO DAILY06 Administer on an empty stomach: 1 hour before or 2 hours after a meal Metformin Hcl 500 Mg Tablet 1,000 Mg PO BIDWMEALS Give with meals Potassium Chloride 10 Meq Tab.er.prt 10 Meq PO DAILY On Thursday and Thursday Atorvastatin Calcium 80 Mg Tablet 80 Mg PO QHS I have reviewed the current psychotropics carefully including drug interactions. Risk benefit ratio favors no change other than as noted in my dictated progress note. Diagnosis: Problems: (1) Suicidal ideation (2) Medical clearance for psychiatric admission (3) Suicidal ideation (4) Anxiety disorder (5) Suicidal ideations (6) Homicidal ideation (7) Bipolar affective disorder, mixed (8) Borderline intellectual disability (9) Impulse control disorder KIT BUENO MD February 11, 2018 21:08
[2018-02-12] MEDS: LEVOTHYROXINE 75 MCG TABLET PO SCH (05:57)
[2018-02-12 06:12] VITALS: BP 150/77
[2018-02-12] MEDS: INSULIN LISPRO 300 UNITS/3 ML INSULN.PEN. SQ SCH ×3 (07:56→17:31)
[2018-02-12 08:25] LABS: ALBUMIN 3.1 g/dL (3.4-5.0); ALBUMIN/GLOBULIN RATIO 0.8 (1.0-1.7); CALCIUM 8.6 mg/dL (8.5-10.1); CREATININE 0.7 mg/dL (0.6-1.0); GFR 84.5; POTASSIUM 3.9 mmol/L (3.5-5.1); TOTAL BILIRUBIN 0.3 mg/dL (0.2-1.0); TOTAL PROTEIN 6.9 g/dL (6.4-8.2)
[2018-02-12 08:27] LABS: BASO % 0 % (0-3); EOS # 0.2 x10^3/uL (0.0-0.7); EOS % 3 % (0-3); HEMATOCRIT 39.3 % (36.0-47.0); HEMOGLOBIN 13.5 g/dL (12.0-15.5); LYMPH # 2.9 x10^3/uL (1.0-4.8); LYMPH % 48 % (24-48); MEAN CORPUSCULAR HEMOGLOBIN 31 pg (25-35); MEAN CORPUSCULAR HGB CONC 34 g/dL (31-37); MEAN CORPUSCULAR VOLUME 91 fL (79-100); MONO # 0.5 x10^3/uL (0.0-1.1); MONO % 8 % (0-9); NEUT # 2.5 x10^3uL (1.8-7.7); NEUT % 41 % (31-73); PLATELET COUNT 269 x10^3/uL (140-400); RED BLOOD COUNT 4.33 x10^6/uL (3.50-5.40); RED CELL DISTRIBUTION WIDTH 15.4 % (11.5-14.5); WHITE BLOOD COUNT 6.1 x10^3/uL (4.0-11.0)
[2018-02-12 08:35] LABS: VAL ACID 37 mcg/mL (50-100)
[2018-02-12] MEDS: busPIRone 10 MG TABLET. PO SCH ×3 (09:09→20:29)
[2018-02-12] MEDS: MELOXICAM 7.5 MG TABLET PO SCH (09:09)
[2018-02-12] MEDS: LACTOBACILLUS RHAMNOSUS GG 1 CAPSULE. PO SCH (09:09)
[2018-02-12] MEDS: CALCIUM POLYCARBOPHIL 625 MG TABLET PO SCH (09:09)
[2018-02-12] MEDS: OMEGA-3 FATTY ACIDS/FISH OIL 1,000 MG CAPSULE. PO SCH (09:09)
[2018-02-12] MEDS: MAGNESIUM OXIDE 400 MG TABLET PO SCH ×3 (09:10→17:22)
[2018-02-12] MEDS: DIVALPROEX 125 MG CAP.SPRINK PO SCH ×2 (09:10→20:30)
[2018-02-12] MEDS: DULoxetine HCL 60 MG CAPSULE.DR PO SCH (09:10)
[2018-02-12] MEDS: FUROSEMIDE 40 MG TABLET PO SCH (09:10)
[2018-02-12] MEDS: metFORMIN 500 MG TABLET PO SCH ×2 (09:10→17:22)
[2018-02-12] MEDS: POTASSIUM CHLORIDE 10 MEQ TABLET.ER. PO SCH (09:10)
[2018-02-12] MEDS: PREGABALIN 50 MG CAPSULE PO SCH ×2 (09:12→20:28)
[2018-02-12] MEDS: PRENATAL MULTIVITAMIN TABLET. PO SCH (09:12)
[2018-02-12] MEDS: INSULIN GLARGINE 300 UNITS/3 ML INSULN.PEN. SQ SCH ×2 (09:14→20:33)
[2018-02-12 16:01] VITALS: BP 133/85
[2018-02-12] MEDS: ATORVASTATIN CALCIUM 20 MG TABLET PO SCH (20:29)
[2018-02-12] MEDS: ALPRAZolam 0.5 MG TABLET PO SCH (20:29)
[2018-02-12] MEDS: risperiDONE 2 MG TABLET. PO SCH (20:30)
--- NOTE | 2018-02-12 21:13 | PDOC ---
Exam Note: Jonathan Note: Please also refer to the separate dictated note~for this date of service dictated separately.~Patient seen individually. Discussed the patient with Nursing staff reviewed the chart.~Reviewed interim history and current functioning. Reviewed vital signs,~Labs/ Radiology~and current medications noted below. Continue current treatment with the changes noted in the dictated addendum note Assessment: Vital Signs: Vital Signs Date Time Temp Pulse Resp B/P (MAP) Pulse Ox O2 Delivery O2 Flow Rate FiO2 02/12/18 16:01 97.7 81 16 133/85 (101) 98 02/12/18 06:12 Room Air I&O Intake and Output 02/12/18 07:00 Intake Total 3290 ml Balance 3290 ml Intake Oral 3290 ml # Bowel Movements 1 Labs: Laboratory Tests Test 02/12/18 07:07 02/12/18 07:28 02/12/18 11:22 02/12/18 17:05 Glucose (Fingerstick) 99 mg/dL (70-99) 142 mg/dL (70-99) H 156 mg/dL (70-99) H White Blood Count 6.1 x10^3/uL (4.0-11.0) Red Blood Count 4.33 x10^6/uL (3.50-5.40) Hemoglobin 13.5 g/dL (12.0-15.5) Hematocrit 39.3 % (36.0-47.0) Mean Corpuscular Volume 91 fL (79-100) Mean Corpuscular Hemoglobin 31 pg (25-35) Mean Corpuscular Hemoglobin Concent 34 g/dL (31-37) Red Cell Distribution Width 15.4 % (11.5-14.5) H Platelet Count 269 x10^3/uL (140-400) Neutrophils (%) (Auto) 41 % (31-73) Lymphocytes (%) (Auto) 48 % (24-48) Monocytes (%) (Auto) 8 % (0-9) Eosinophils (%) (Auto) 3 % (0-3) Basophils (%) (Auto) 0 % (0-3) Neutrophils # (Auto) 2.5 x10^3uL (1.8-7.7) Lymphocytes # (Auto) 2.9 x10^3/uL (1.0-4.8) Monocytes # (Auto) 0.5 x10^3/uL (0.0-1.1) Eosinophils # (Auto) 0.2 x10^3/uL (0.0-0.7) Basophils # (Auto) 0.0 x10^3/uL (0.0-0.2) Sodium Level 139 mmol/L (136-145) Potassium Level 3.9 mmol/L (3.5-5.1) Chloride Level 102 mmol/L (98-107) Carbon Dioxide Level 29 mmol/L (21-32) Anion Gap 8 (6-14) Blood Urea Nitrogen 10 mg/dL (7-20) Creatinine 0.7 mg/dL (0.6-1.0) Estimated GFR (Cockcroft-Gault) 84.5 BUN/Creatinine Ratio 14 (6-20) Glucose Level 110 mg/dL (70-99) H Calcium Level 8.6 mg/dL (8.5-10.1) Total Bilirubin 0.3 mg/dL (0.2-1.0) Aspartate Amino Transferase (AST) 10 U/L (15-37) L Alanine Aminotransferase (ALT) 20 U/L (14-59) Alkaline Phosphatase 68 U/L (46-116) Total Protein 6.9 g/dL (6.4-8.2) Albumin 3.1 g/dL (3.4-5.0) L Albumin/Globulin Ratio 0.8 (1.0-1.7) L Valproic Acid Level 37 mcg/mL (50-100) L Valproic Acid Last Dose Date 02/11/2018 Valproic Acid Last Dose Time 2100 Test 02/12/18 19:25 Glucose (Fingerstick) 228 mg/dL (70-99) H Current Medications: Meds: Current Medications Acetaminophen (Tylenol) 650 mg PRN Q6HRS PRN PO PAIN / TEMP; Start 02/03/18 at 02:15; Stop 02/06/18 at 13:39; Status DC Multi-Ingredient Ointment (Analgesic Issue) 1 jurgen PRN QID PRN TP MUSCLE PAIN; Start 02/03/18 at 02:15 Al Hydroxide/Mg Hydroxide (Mylanta Plus Xs) 15 ml PRN AFTMEALHC PRN PO DYSPEPSIA; Start 02/03/18 at 02:15 Magnesium Hydroxide (Milk Of Magnesia) 2,400 mg PRN QHS PRN PO CONSTIPATION; Start 02/03/18 at 02:15 Acetaminophen (Tylenol) 650 mg PRN Q4HRS PRN PO PAIN / TEMP; Start 02/03/18 at 05:00 Alprazolam (Xanax) 0.5 mg PRN TID PRN PO ANXIETY / AGITATION Last administered on 02/10/18 08:46; Start 02/03/18 at 05:00 Alprazolam (Xanax) 0.5 mg QHS PO Last administered on 02/12/18 20:29; Start at 21:00 Buspirone HCl (Buspar) 5 mg TID PO Last administered on 02/04/18 08:37; Start 02/03/18 at 09:00; Stop 02/04/18 at 13:41; Status DC Acetaminophen/ Butalbital/ Caffeine (Fioricet) 1 tab PRN Q8HRS PRN PO HEADACHE ; Start 02/03/18 at 05:00 Calcium Polycarbophil (Fibercon) 625 mg DAILY PO Last administered on 02/12/18 09:09; Start 02/03/18 at 09:00 Docusate Sodium (Colace) 100 mg PRN DAILY PRN PO CONSTIPATION; Start 02/03/18 at 05:00 Duloxetine HCl (Cymbalta) 60 mg DAILY PO Last administered on 02/12/18 09:10; Start 02/03/18 at 09:00 Furosemide (Lasix) 40 mg DAILY PO Last administered on 02/12/18 09:10; Start at 09:00 Levothyroxine Sodium (Synthroid) 75 mcg DAILY06 PO Last administered on 05:57; Start 02/03/18 at 06:00 Magnesium Oxide (Magnesium Oxide) 400 mg TIDWMEALS PO Last administered on 17:22; Start 02/03/18 at 08:00 Meloxicam (Mobic) 7.5 mg DAILY PO Last administered on 02/12/18 09:09; Start at 09:00 Metformin HCl (Glucophage) 1,000 mg BIDWMEALS PO Last administered on 02/12/18 17:22; Start 02/03/18 at 08:00 Potassium Chloride (Klor-Con) 10 meq DAILY PO Last administered on 02/12/18 09: 10; Start 02/03/18 at 09:00 Pregabalin (Lyrica) 50 mg BID PO Last administered on 02/12/18 20:28; Start at 09:00 Risperidone (RisperDAL) 4 mg HS PO Last administered on 02/12/18 20:30; Start 02/03/18 at 21:00 Tramadol HCl (Ultram) 50 mg PRN Q4HRS PRN PO PAIN Last administered on 14:56; Start 02/03/18 at 05:00 Valproic Acid (Depakene) 250 mg BID PO Last administered on 02/05/18 08:26; Start 02/03/18 at 09:00; Stop 02/05/18 at 19:18; Status DC Atorvastatin Calcium (Lipitor) 80 mg QHS PO Last administered on 02/12/18 20:29 ; Start 02/03/18 at 21:00 Non-Formulary Medication (Cinnamon Bark (Cinnamon)) 1,000 mg DAILY PO ; Start at 09:00; Status UNV Insulin Glargine (Lantus) 40 units HS SQ Last administered on 02/12/18 20:33; Start 02/03/18 at 21:00 Insulin Glargine (Lantus) 50 units DAILYWBKFT SQ Last administered on 02/12/18 09:14; Start 02/03/18 at 08:00 Non-Formulary Medication (Ipratropium/ Albuterol Sulfate (Combivent Respimat Inhal)) 2 puff PRN Q4HRS PRN INH SHORTNESS OF BREATH; Start 02/03/18 at 05:00; Stop 02/03/18 at 07:10; Status DC Lactobacillus Rhamnosus (Culturelle) 1 cap DAILY PO Last administered on 09:09; Start 02/03/18 at 09:00 Non-Formulary Medication (Menthol (Biofreeze)) 1 jurgen PRN QID PRN TP MUSCLE PAIN ; Start 02/03/18 at 05:00; Stop 02/03/18 at 07:08; Status DC Fish Oil (Fish Oil) 1,000 mg DAILY PO Last administered on 02/12/18 09:09; Start 02/03/18 at 09:00 Ondansetron HCl (Zofran Odt) 4 mg PRN Q6HRS PRN PO NAUSEA/VOMITING; Start 02/03 at 05:00 Phenytoin Sodium (Dilantin) 300 mg QHS PO Last administered on 02/09/18 20:33; Start 02/03/18 at 21:00; Stop 02/10/18 at 09:36; Status DC Albuterol/ Ipratropium (Duoneb) 3 ml PRN Q4HRS PRN NEB SHORTNESS OF BREATH; Start 02/03/18 at 07:15 Buspirone HCl (Buspar) 5 mg QID PO Last administered on 02/11/18 12:34; Start 02/04/18 at 17:00; Stop 02/11/18 at 14:23; Status DC Valproic Acid (Depakene) 375 mg BID PO ; Start 02/05/18 at 21:00; Stop 02/05/18 at 21:00; Status DC Divalproex Sodium (Depakote Sprinkles) 375 mg BID PO Last administered on 08:44; Start 02/05/18 at 21:00; Stop 02/09/18 at 18:34; Status DC Insulin Human Lispro (HumaLOG) 0-5 UNITS TIDWMEALS SQ Last administered on 17:31; Start 02/07/18 at 17:00 Dextrose 12.5 gm PRN Q15MIN PRN IV SEE COMMENTS; Start 02/07/18 at 15:15 Divalproex Sodium (Depakote Sprinkles) 500 mg BID PO Last administered on 09:10; Start 02/09/18 at 21:00; Stop 02/12/18 at 18:48; Status DC Buspirone HCl (Buspar) 10 mg TID PO Last administered on 02/12/18 20:29; Start 02/11/18 at 21:00 Prenat Multivit/ [place]/Iron/Folic Ac (Multivitamin ) 1 tab DAILY PO Last administered on 02/12/18 09:12; Start 02/12/18 at 09:00 Divalproex Sodium (Depakote Sprinkles) 750 mg BID PO Last administered on at 20:30; Start 02/12/18 at 21:00 Active Scripts Active Reported Xanax (Alprazolam) 0.5 Mg Tablet 0.5 Mg PO PRN TID PRN Tramadol Hcl (Tramadol HCl) 50 Mg Tablet 50 Mg PO PRN Q4HRS PRN Oitrgi-Tvmkmkhk-Poel 50-325-40 (Butalb/Acetaminophen/Caffeine) 1 Each Tablet 1 Tab PO PRN Q8HRS PRN Xanax (Alprazolam) 0.5 Mg Tablet 0.5 Mg PO QHS Valproic Acid 250 Mg Capsule 250 Mg PO BID Biofreeze (Menthol) 118 Ml Gel..ml. 1 Jurgen TP PRN QID PRN Zofran (Ondansetron Hcl) 4 Mg Tablet 4 Mg PO PRN Q6HRS PRN Mobic (Meloxicam) 7.5 Mg Tablet 7.5 Mg PO DAILY Lasix (Furosemide) 40 Mg Tablet 40 Mg PO DAILY Fish Oil 1,000 Mg Softgel ([place]-3/Dha/Epa/Fish Oil) 1 Each Capsule 1 Cap PO DAILY Cinnamon (Cinnamon Bark) 500 Mg Capsule 1,000 Mg PO DAILY Phenytoin Sodium Extended 300 Mg Capsule 300 Mg PO QHS Lyrica (Pregabalin) 50 Mg Capsule 50 Mg PO BID Duloxetine Hcl 60 Mg Capsule.dr 60 Mg PO DAILY Combivent Respimat Inhal (Ipratropium/Albuterol Sulfate) 4 Gm Aer.w.adap 2 Puff INH PRN Q4HRS PRN Fibercon (Calcium Polycarbophil) 625 Mg Tablet 625 Mg PO DAILY Probiotic (Lactobacillus Acidophilus) 1 Each Capsule 1 Tab PO DAILY Levemir (Insulin Detemir) 100 Unit/1 Ml Vial 40 Unit SQ HS Levemir (Insulin Detemir) 100 Unit/1 Ml Vial 50 Unit SQ DAILYWBKFT Magnesium Oxide 400 Mg Tablet 400 Mg PO TIDWMEALS Colace (Docusate Sodium) 100 Mg Capsule 100 Mg PO PRN DAILY PRN Risperidone 0.5 Mg Tablet 4 Mg PO HS give with 4 mg dose to make 4.5 mg dose Buspirone Hcl 5 Mg Tablet 5 Mg PO TID Do not administer with grapefruit juice Tylenol (Acetaminophen) 325 Mg Tablet 650 Mg PO PRN Q4HRS PRN Max Acetaminophen dose is 4000mg in 24 hours from all sources for adults Levothyroxine Sodium 75 Mcg Tablet 75 Mcg PO DAILY06 Administer on an empty stomach: 1 hour before or 2 hours after a meal Metformin Hcl 500 Mg Tablet 1,000 Mg PO BIDWMEALS Give with meals Potassium Chloride 10 Meq Tab.er.prt 10 Meq PO DAILY On Thursday and Thursday Atorvastatin Calcium 80 Mg Tablet 80 Mg PO QHS I have reviewed the current psychotropics carefully including drug interactions. Risk benefit ratio favors no change other than as noted in my dictated progress note. Diagnosis: Problems: (1) Suicidal ideation (2) Medical clearance for psychiatric admission (3) Suicidal ideation (4) Anxiety disorder (5) Suicidal ideations (6) Homicidal ideation (7) Bipolar affective disorder, mixed (8) Borderline intellectual disability (9) Impulse control disorder KIT BUENO MD February 12, 2018 21:13
[2018-02-13] MEDS: LEVOTHYROXINE 75 MCG TABLET PO SCH (05:12)
--- NOTE | 2018-02-13 05:16 | PN ---
DATE: 02/10/2018 PSYCHIATRIC PROGRESS NOTE This late entry 02/10/2018 covers elements not covered in my initial note 02/10/2018. SUBJECTIVE: I met with the patient in the evening. The patient slept 8-3/4 hours previous evening. The patient remains quite anxious, labile in her mood, at times grandiose, minimizes problems, prompting admission, rationalizes. REVIEW OF SYSTEMS: No CV, , pulmonary, eye system symptoms on review. MENTAL STATUS EXAM: Oriented to herself and situation. Speech is coherent, less pressured. Abstraction fair, computation impaired, language function intact, attention span short. Mood and affect remain somewhat labile, but improved. LABORATORIES: Reviewed. IMPRESSION: Bipolar 1 disorder, mixed. Rest unchanged. PLAN: Continue psychotropics mentioned in my initial note. MAN Chintan BUENO MD DR: LACEY/haile JOB#: [id number] / [id number]
[2018-02-13 06:30] VITALS: BP 143/70
[2018-02-13] MEDS: INSULIN LISPRO 300 UNITS/3 ML INSULN.PEN. SQ SCH ×3 (08:09→18:32)
[2018-02-13] MEDS: busPIRone 10 MG TABLET. PO SCH ×3 (08:11→19:48)
[2018-02-13] MEDS: metFORMIN 500 MG TABLET PO SCH ×2 (08:11→18:32)
[2018-02-13] MEDS: MAGNESIUM OXIDE 400 MG TABLET PO SCH ×3 (08:11→18:33)
[2018-02-13] MEDS: CALCIUM POLYCARBOPHIL 625 MG TABLET PO SCH (08:11)
[2018-02-13] MEDS: DULoxetine HCL 60 MG CAPSULE.DR PO SCH (08:11)
[2018-02-13] MEDS: FUROSEMIDE 40 MG TABLET PO SCH (08:11)
[2018-02-13] MEDS: LACTOBACILLUS RHAMNOSUS GG 1 CAPSULE. PO SCH (08:11)
[2018-02-13] MEDS: OMEGA-3 FATTY ACIDS/FISH OIL 1,000 MG CAPSULE. PO SCH (08:11)
[2018-02-13] MEDS: PRENATAL MULTIVITAMIN TABLET. PO SCH (08:11)
[2018-02-13] MEDS: DIVALPROEX 125 MG CAP.SPRINK PO SCH ×2 (08:12→19:48)
[2018-02-13] MEDS: MELOXICAM 7.5 MG TABLET PO SCH (08:12)
[2018-02-13] MEDS: POTASSIUM CHLORIDE 10 MEQ TABLET.ER. PO SCH (08:12)
[2018-02-13] MEDS: PREGABALIN 50 MG CAPSULE PO SCH ×2 (08:13→19:52)
[2018-02-13] MEDS: INSULIN GLARGINE 300 UNITS/3 ML INSULN.PEN. SQ SCH ×2 (10:18→21:17)
[2018-02-13 17:07] VITALS: BP 99/44
--- NOTE | 2018-02-13 18:12 | PN ---
DATE: 02/11/2018 This is a late entry for 02/11/2018 and covers the elements not covered in my initial note of 02/11/2018. SUBJECTIVE: The patient was staffed at a treatment team meeting with the entire team in the morning, seen individually in the evening. Dr. Woodson has discontinued the Dilantin with no evidence of seizures. She is sleeping about 9 hours. Appetite 90%, still somewhat anxious, labile. REVIEW OF SYSTEMS: No CV, , pulmonary, eye system symptoms on review. MENTAL STATUS EXAM: Reasonably oriented. Speech coherent, less pressured. Abstraction fair, computation impaired, language function intact. Mood and affect still somewhat anxious, labile. LABORATORY DATA: Will be repeated on 02/12/2018. IMPRESSION: Unchanged from initial note. PLAN: Increase BuSpar from 5 mg 4 times a day to 10 mg 3 times a day. Rest unchanged. MAN Chintan BUENO MD DR: LACEY/haile JOB#: [id number] / [id number]
[2018-02-13] MEDS: ATORVASTATIN CALCIUM 20 MG TABLET PO SCH (19:48)
[2018-02-13] MEDS: risperiDONE 2 MG TABLET. PO SCH (19:48)
[2018-02-13] MEDS: ALPRAZolam 0.5 MG TABLET PO SCH (19:52)
--- NOTE | 2018-02-13 23:09 | PDOC ---
Exam Note: Jonathan Note: Please also refer to the separate dictated note~for this date of service dictated separately.~Patient seen individually. Discussed the patient with Nursing staff reviewed the chart.~Reviewed interim history and current functioning. Reviewed vital signs,~Labs/ Radiology~and current medications noted below. Continue current treatment with the changes noted in the dictated addendum note Assessment: Vital Signs: Vital Signs Date Time Temp Pulse Resp B/P (MAP) Pulse Ox O2 Delivery O2 Flow Rate FiO2 02/13/18 17:07 97.8 75 18 99/44 (62) 94 02/12/18 06:12 Room Air I&O Intake and Output 02/13/18 07:00 Intake Total 660 ml Balance 660 ml Intake Oral 660 ml # Bowel Movements 1 Labs: Laboratory Tests Test 02/13/18 07:31 02/13/18 12:02 02/13/18 16:49 02/13/18 19:26 Glucose (Fingerstick) 84 mg/dL (70-99) 133 mg/dL (70-99) H 190 mg/dL (70-99) H 173 mg/dL (70-99) H Current Medications: Meds: Current Medications Acetaminophen (Tylenol) 650 mg PRN Q6HRS PRN PO PAIN / TEMP; Start 02/03/18 at 02:15; Stop 02/06/18 at 13:39; Status DC Multi-Ingredient Ointment (Analgesic [place]) 1 jurgen PRN QID PRN TP MUSCLE PAIN; Start 02/03/18 at 02:15 Al Hydroxide/Mg Hydroxide (Mylanta Plus Xs) 15 ml PRN AFTMEALHC PRN PO DYSPEPSIA; Start 02/03/18 at 02:15 Magnesium Hydroxide (Milk Of Magnesia) 2,400 mg PRN QHS PRN PO CONSTIPATION; Start 02/03/18 at 02:15 Acetaminophen (Tylenol) 650 mg PRN Q4HRS PRN PO PAIN / TEMP; Start 02/03/18 at 05:00 Alprazolam (Xanax) 0.5 mg PRN TID PRN PO ANXIETY / AGITATION Last administered on 02/10/18at 08:46; Start 02/03/18 at 05:00 Alprazolam (Xanax) 0.5 mg QHS PO Last administered on 02/13/18at 19:52; Start at 21:00 Buspirone HCl (Buspar) 5 mg TID PO Last administered on 02/04/18 08:37; Start 02/03/18 at 09:00; Stop 02/04/18 at 13:41; Status DC Acetaminophen/ Butalbital/ Caffeine (Fioricet) 1 tab PRN Q8HRS PRN PO HEADACHE ; Start 02/03/18 at 05:00 Calcium Polycarbophil (Fibercon) 625 mg DAILY PO Last administered on 02/13/18 08:11; Start 02/03/18 at 09:00 Docusate Sodium (Colace) 100 mg PRN DAILY PRN PO CONSTIPATION; Start 02/03/18 at 05:00 Duloxetine HCl (Cymbalta) 60 mg DAILY PO Last administered on 02/13/18 08:11; Start 02/03/18 at 09:00 Furosemide (Lasix) 40 mg DAILY PO Last administered on 02/13/18 08:11; Start at 09:00 Levothyroxine Sodium (Synthroid) 75 mcg DAILY06 PO Last administered on 05:12; Start 02/03/18 at 06:00 Magnesium Oxide (Magnesium Oxide) 400 mg TIDWMEALS PO Last administered on 18:33; Start 02/03/18 at 08:00 Meloxicam (Mobic) 7.5 mg DAILY PO Last administered on 02/13/18 08:12; Start at 09:00 Metformin HCl (Glucophage) 1,000 mg BIDWMEALS PO Last administered on 02/13/18 18:32; Start 02/03/18 at 08:00 Potassium Chloride (Klor-Con) 10 meq DAILY PO Last administered on 02/13/18 08: 12; Start 02/03/18 at 09:00 Pregabalin (Lyrica) 50 mg BID PO Last administered on 02/13/18 19:52; Start at 09:00 Risperidone (RisperDAL) 4 mg HS PO Last administered on 02/13/18 19:48; Start 02/03/18 at 21:00 Tramadol HCl (Ultram) 50 mg PRN Q4HRS PRN PO PAIN Last administered on 14:56; Start 02/03/18 at 05:00 Valproic Acid (Depakene) 250 mg BID PO Last administered on 02/05/18 08:26; Start 02/03/18 at 09:00; Stop 02/05/18 at 19:18; Status DC Atorvastatin Calcium (Lipitor) 80 mg QHS PO Last administered on 02/13/18 19:48 ; Start 02/03/18 at 21:00 Non-Formulary Medication (Cinnamon Bark (Cinnamon)) 1,000 mg DAILY PO ; Start at 09:00; Status UNV Insulin Glargine (Lantus) 40 units HS SQ Last administered on 02/13/18 21:17; Start 02/03/18 at 21:00 Insulin Glargine (Lantus) 50 units DAILYWBKFT SQ Last administered on 02/13/18 10:18; Start 02/03/18 at 08:00 Non-Formulary Medication (Ipratropium/ Albuterol Sulfate (Combivent Respimat Inhal)) 2 puff PRN Q4HRS PRN INH SHORTNESS OF BREATH; Start 02/03/18 at 05:00; Stop 02/03/18 at 07:10; Status DC Lactobacillus Rhamnosus (Culturelle) 1 cap DAILY PO Last administered on 08:11; Start 02/03/18 at 09:00 Non-Formulary Medication (Menthol (Biofreeze)) 1 jurgen PRN QID PRN TP MUSCLE PAIN ; Start 02/03/18 at 05:00; Stop 02/03/18 at 07:08; Status DC Fish Oil (Fish Oil) 1,000 mg DAILY PO Last administered on 02/13/18 08:11; Start 02/03/18 at 09:00 Ondansetron HCl (Zofran Odt) 4 mg PRN Q6HRS PRN PO NAUSEA/VOMITING; Start 02/03 at 05:00 Phenytoin Sodium (Dilantin) 300 mg QHS PO Last administered on 02/09/18at 20:33; Start 02/03/18 at 21:00; Stop 02/10/18 at 09:36; Status DC Albuterol/ Ipratropium (Duoneb) 3 ml PRN Q4HRS PRN NEB SHORTNESS OF BREATH; Start 02/03/18 at 07:15 Buspirone HCl (Buspar) 5 mg QID PO Last administered on 02/11/18at 12:34; Start 02/04/18 at 17:00; Stop 02/11/18 at 14:23; Status DC Valproic Acid (Depakene) 375 mg BID PO ; Start 02/05/18 at 21:00; Stop 02/05/18 at 21:00; Status DC Divalproex Sodium (Depakote Sprinkles) 375 mg BID PO Last administered on at 08:44; Start 02/05/18 at 21:00; Stop 02/09/18 at 18:34; Status DC Insulin Human Lispro (HumaLOG) 0-5 UNITS TIDWMEALS SQ Last administered on at 18:32; Start 02/07/18 at 17:00 Dextrose 12.5 gm PRN Q15MIN PRN IV SEE COMMENTS; Start 02/07/18 at 15:15 Divalproex Sodium (Depakote Sprinkles) 500 mg BID PO Last administered on at 09:10; Start 02/09/18 at 21:00; Stop 02/12/18 at 18:48; Status DC Buspirone HCl (Buspar) 10 mg TID PO Last administered on 02/13/18 19:48; Start 02/11/18 at 21:00 Prenat Multivit/ [employer]ician/Iron/Folic Ac (Multivitamin ) 1 tab DAILY PO Last administered on 02/13/18at 08:11; Start 02/12/18 at 09:00 Divalproex Sodium (Depakote Sprinkles) 750 mg BID PO Last administered on 19:48; Start 02/12/18 at 21:00 Active Scripts Active Reported Xanax (Alprazolam) 0.5 Mg Tablet 0.5 Mg PO PRN TID PRN Tramadol Hcl (Tramadol HCl) 50 Mg Tablet 50 Mg PO PRN Q4HRS PRN Tyqbwe-Oewxonnd-Lmlj 50-325-40 (Butalb/Acetaminophen/Caffeine) 1 Each Tablet 1 Tab PO PRN Q8HRS PRN Xanax (Alprazolam) 0.5 Mg Tablet 0.5 Mg PO QHS Valproic Acid 250 Mg Capsule 250 Mg PO BID Biofreeze (Menthol) 118 Ml Gel..ml. 1 [place] TP PRN QID PRN Zofran (Ondansetron Hcl) 4 Mg Tablet 4 Mg PO PRN Q6HRS PRN Mobic (Meloxicam) 7.5 Mg Tablet 7.5 Mg PO DAILY Lasix (Furosemide) 40 Mg Tablet 40 Mg PO DAILY Fish Oil 1,000 Mg Softgel ([place]-3/Dha/Epa/Fish Oil) 1 Each Capsule 1 Cap PO DAILY Cinnamon (Cinnamon Bark) 500 Mg Capsule 1,000 Mg PO DAILY Phenytoin Sodium Extended 300 Mg Capsule 300 Mg PO QHS Lyrica (Pregabalin) 50 Mg Capsule 50 Mg PO BID Duloxetine Hcl 60 Mg Capsule.dr 60 Mg PO DAILY Combivent Respimat Inhal (Ipratropium/Albuterol Sulfate) 4 Gm Aer.w.adap 2 Puff INH PRN Q4HRS PRN Fibercon (Calcium Polycarbophil) 625 Mg Tablet 625 Mg PO DAILY Probiotic (Lactobacillus Acidophilus) 1 Each Capsule 1 Tab PO DAILY Levemir (Insulin Detemir) 100 Unit/1 Ml Vial 40 Unit SQ HS Levemir (Insulin Detemir) 100 Unit/1 Ml Vial 50 Unit SQ DAILYWBKFT Magnesium Oxide 400 Mg Tablet 400 Mg PO TIDWMEALS Colace (Docusate Sodium) 100 Mg Capsule 100 Mg PO PRN DAILY PRN Risperidone 0.5 Mg Tablet 4 Mg PO HS give with 4 mg dose to make 4.5 mg dose Buspirone Hcl 5 Mg Tablet 5 Mg PO TID Do not administer with grapefruit juice Tylenol (Acetaminophen) 325 Mg Tablet 650 Mg PO PRN Q4HRS PRN Max Acetaminophen dose is 4000mg in 24 hours from all sources for adults Levothyroxine Sodium 75 Mcg Tablet 75 Mcg PO DAILY06 Administer on an empty stomach: 1 hour before or 2 hours after a meal Metformin Hcl 500 Mg Tablet 1,000 Mg PO BIDWMEALS Give with meals Potassium Chloride 10 Meq Tab.er.prt 10 Meq PO DAILY On Thursday and Thursday Atorvastatin Calcium 80 Mg Tablet 80 Mg PO QHS I have reviewed the current psychotropics carefully including drug interactions. Risk benefit ratio favors no change other than as noted in my dictated progress note. Diagnosis: Problems: (1) Suicidal ideation (2) Medical clearance for psychiatric admission (3) Suicidal ideation (4) Anxiety disorder (5) Suicidal ideations (6) Homicidal ideation (7) Bipolar affective disorder, mixed (8) Borderline intellectual disability (9) Impulse control disorder KIT BUENO MD February 13, 2018 23:09
[2018-02-14] MEDS: LEVOTHYROXINE 75 MCG TABLET PO SCH (05:41)
[2018-02-14 06:23] VITALS: BP 113/68
[2018-02-14] MEDS: INSULIN GLARGINE 300 UNITS/3 ML INSULN.PEN. SQ SCH ×2 (07:58→21:41)
[2018-02-14] MEDS: MAGNESIUM OXIDE 400 MG TABLET PO SCH ×3 (08:03→18:06)
[2018-02-14] MEDS: busPIRone 10 MG TABLET. PO SCH ×3 (08:03→19:51)
[2018-02-14] MEDS: metFORMIN 500 MG TABLET PO SCH ×2 (08:03→18:05)
[2018-02-14] MEDS: INSULIN LISPRO 300 UNITS/3 ML INSULN.PEN. SQ SCH ×3 (08:03→17:42)
[2018-02-14] MEDS: CALCIUM POLYCARBOPHIL 625 MG TABLET PO SCH (08:04)
[2018-02-14] MEDS: DULoxetine HCL 60 MG CAPSULE.DR PO SCH (08:04)
[2018-02-14] MEDS: OMEGA-3 FATTY ACIDS/FISH OIL 1,000 MG CAPSULE. PO SCH (08:04)
[2018-02-14] MEDS: LACTOBACILLUS RHAMNOSUS GG 1 CAPSULE. PO SCH (08:04)
[2018-02-14] MEDS: DIVALPROEX 125 MG CAP.SPRINK PO SCH ×2 (08:04→19:50)
[2018-02-14] MEDS: PRENATAL MULTIVITAMIN TABLET. PO SCH (08:05)
[2018-02-14] MEDS: FUROSEMIDE 40 MG TABLET PO SCH (08:05)
[2018-02-14] MEDS: PREGABALIN 50 MG CAPSULE PO SCH ×5 (08:05→21:32)
[2018-02-14] MEDS: MELOXICAM 7.5 MG TABLET PO SCH (08:05)
[2018-02-14] MEDS: POTASSIUM CHLORIDE 10 MEQ TABLET.ER. PO SCH (08:05)
[2018-02-14 16:48] VITALS: BP 149/89
--- NOTE | 2018-02-14 18:55 | PDOC ---
Exam Note: Jonathan Note: Please also refer to the separate dictated note~for this date of service dictated separately.~Patient seen individually. Discussed the patient with Nursing staff reviewed the chart.~Reviewed interim history and current functioning. Reviewed vital signs,~Labs/ Radiology~and current medications noted below. Continue current treatment with the changes noted in the dictated addendum note Assessment: Vital Signs: Vital Signs Date Time Temp Pulse Resp B/P (MAP) Pulse Ox O2 Delivery O2 Flow Rate FiO2 02/14/18 16:48 97.1 108 18 149/89 (109) 97 02/12/18 06:12 Room Air I&O Intake and Output 02/14/18 07:00 Intake Total 1200 ml Balance 1200 ml Intake Oral 1200 ml Labs: Laboratory Tests Test 02/13/18 19:26 02/14/18 07:17 02/14/18 11:23 02/14/18 16:53 Glucose (Fingerstick) 173 mg/dL (70-99) H 94 mg/dL (70-99) 126 mg/dL (70-99) H 92 mg/dL (70-99) Current Medications: Meds: Current Medications Acetaminophen (Tylenol) 650 mg PRN Q6HRS PRN PO PAIN / TEMP; Start 02/03/18 at 02:15; Stop 02/06/18 at 13:39; Status DC Multi-Ingredient Ointment (Analgesic [place]) 1 jurgen PRN QID PRN TP MUSCLE PAIN; Start 02/03/18 at 02:15 Al Hydroxide/Mg Hydroxide (Mylanta Plus Xs) 15 ml PRN AFTMEALHC PRN PO DYSPEPSIA; Start 02/03/18 at 02:15 Magnesium Hydroxide (Milk Of Magnesia) 2,400 mg PRN QHS PRN PO CONSTIPATION; Start 02/03/18 at 02:15 Acetaminophen (Tylenol) 650 mg PRN Q4HRS PRN PO PAIN / TEMP; Start 02/03/18 at 05:00 Alprazolam (Xanax) 0.5 mg PRN TID PRN PO ANXIETY / AGITATION Last administered on 02/10/18at 08:46; Start 02/03/18 at 05:00 Alprazolam (Xanax) 0.5 mg QHS PO Last administered on 02/13/18at 19:52; Start at 21:00 Buspirone HCl (Buspar) 5 mg TID PO Last administered on 02/04/18 08:37; Start 02/03/18 at 09:00; Stop 02/04/18 at 13:41; Status DC Acetaminophen/ Butalbital/ Caffeine (Fioricet) 1 tab PRN Q8HRS PRN PO HEADACHE ; Start 02/03/18 at 05:00 Calcium Polycarbophil (Fibercon) 625 mg DAILY PO Last administered on 02/14/18 08:04; Start 02/03/18 at 09:00 Docusate Sodium (Colace) 100 mg PRN DAILY PRN PO CONSTIPATION; Start 02/03/18 at 05:00 Duloxetine HCl (Cymbalta) 60 mg DAILY PO Last administered on 02/14/18 08:04; Start 02/03/18 at 09:00 Furosemide (Lasix) 40 mg DAILY PO Last administered on 02/14/18 08:05; Start at 09:00 Levothyroxine Sodium (Synthroid) 75 mcg DAILY06 PO Last administered on 05:41; Start 02/03/18 at 06:00 Magnesium Oxide (Magnesium Oxide) 400 mg TIDWMEALS PO Last administered on 18:06; Start 02/03/18 at 08:00 Meloxicam (Mobic) 7.5 mg DAILY PO Last administered on 02/14/18 08:05; Start at 09:00 Metformin HCl (Glucophage) 1,000 mg BIDWMEALS PO Last administered on 02/14/18 18:05; Start 02/03/18 at 08:00 Potassium Chloride (Klor-Con) 10 meq DAILY PO Last administered on 02/14/18 08: 05; Start 02/03/18 at 09:00 Pregabalin (Lyrica) 50 mg BID PO Last administered on 02/14/18 08:05; Start at 09:00 Risperidone (RisperDAL) 4 mg HS PO Last administered on 02/13/18 19:48; Start 02/03/18 at 21:00 Tramadol HCl (Ultram) 50 mg PRN Q4HRS PRN PO PAIN Last administered on 14:56; Start 02/03/18 at 05:00 Valproic Acid (Depakene) 250 mg BID PO Last administered on 02/05/18 08:26; Start 02/03/18 at 09:00; Stop 02/05/18 at 19:18; Status DC Atorvastatin Calcium (Lipitor) 80 mg QHS PO Last administered on 02/13/18 19:48 ; Start 02/03/18 at 21:00 Non-Formulary Medication (Cinnamon Bark (Cinnamon)) 1,000 mg DAILY PO ; Start at 09:00; Status UNV Insulin Glargine (Lantus) 40 units HS SQ Last administered on 02/13/18 21:17; Start 02/03/18 at 21:00 Insulin Glargine (Lantus) 50 units DAILYWBKFT SQ Last administered on 02/14/18 07:58; Start 02/03/18 at 08:00 Non-Formulary Medication (Ipratropium/ Albuterol Sulfate (Combivent Respimat Inhal)) 2 puff PRN Q4HRS PRN INH SHORTNESS OF BREATH; Start 02/03/18 at 05:00; Stop 02/03/18 at 07:10; Status DC Lactobacillus Rhamnosus (Culturelle) 1 cap DAILY PO Last administered on 08:04; Start 02/03/18 at 09:00 Non-Formulary Medication (Menthol (Biofreeze)) 1 jurgen PRN QID PRN TP MUSCLE PAIN ; Start 02/03/18 at 05:00; Stop 02/03/18 at 07:08; Status DC Fish Oil (Fish Oil) 1,000 mg DAILY PO Last administered on 02/14/18 08:04; Start 02/03/18 at 09:00 Ondansetron HCl (Zofran Odt) 4 mg PRN Q6HRS PRN PO NAUSEA/VOMITING; Start 02/03 at 05:00 Phenytoin Sodium (Dilantin) 300 mg QHS PO Last administered on 02/09/18 20:33; Start 02/03/18 at 21:00; Stop 02/10/18 at 09:36; Status DC Albuterol/ Ipratropium (Duoneb) 3 ml PRN Q4HRS PRN NEB SHORTNESS OF BREATH; Start 02/03/18 at 07:15 Buspirone HCl (Buspar) 5 mg QID PO Last administered on 02/11/18at 12:34; Start 02/04/18 at 17:00; Stop 02/11/18 at 14:23; Status DC Valproic Acid (Depakene) 375 mg BID PO ; Start 02/05/18 at 21:00; Stop 02/05/18 at 21:00; Status DC Divalproex Sodium (Depakote Sprinkles) 375 mg BID PO Last administered on at 08:44; Start 02/05/18 at 21:00; Stop 02/09/18 at 18:34; Status DC Insulin Human Lispro (HumaLOG) 0-5 UNITS TIDWMEALS SQ Last administered on at 18:32; Start 02/07/18 at 17:00 Dextrose 12.5 gm PRN Q15MIN PRN IV SEE COMMENTS; Start 02/07/18 at 15:15 Divalproex Sodium (Depakote Sprinkles) 500 mg BID PO Last administered on at 09:10; Start 02/09/18 at 21:00; Stop 02/12/18 at 18:48; Status DC Buspirone HCl (Buspar) 10 mg TID PO Last administered on 02/14/18at 13:35; Start 02/11/18 at 21:00 Prenat Multivit/ [place]/Iron/Folic Ac (Multivitamin ) 1 tab DAILY PO Last administered on 02/14/18at 08:05; Start 02/12/18 at 09:00 Divalproex Sodium (Depakote Sprinkles) 750 mg BID PO Last administered on at 08:04; Start 02/12/18 at 21:00 Active Scripts Active Reported Xanax (Alprazolam) 0.5 Mg Tablet 0.5 Mg PO PRN TID PRN Tramadol Hcl (Tramadol HCl) 50 Mg Tablet 50 Mg PO PRN Q4HRS PRN Cqzczy-Cvipaprw-Mgus 50-325-40 (Butalb/Acetaminophen/Caffeine) 1 Each Tablet 1 Tab PO PRN Q8HRS PRN Xanax (Alprazolam) 0.5 Mg Tablet 0.5 Mg PO QHS Valproic Acid 250 Mg Capsule 250 Mg PO BID Biofreeze (Menthol) 118 Ml Gel..ml. 1 [place] TP PRN QID PRN Zofran (Ondansetron Hcl) 4 Mg Tablet 4 Mg PO PRN Q6HRS PRN Mobic (Meloxicam) 7.5 Mg Tablet 7.5 Mg PO DAILY Lasix (Furosemide) 40 Mg Tablet 40 Mg PO DAILY Fish Oil 1,000 Mg Softgel ([place]-3/Dha/Epa/Fish Oil) 1 Each Capsule 1 Cap PO DAILY Cinnamon (Cinnamon Bark) 500 Mg Capsule 1,000 Mg PO DAILY Phenytoin Sodium Extended 300 Mg Capsule 300 Mg PO QHS Lyrica (Pregabalin) 50 Mg Capsule 50 Mg PO BID Duloxetine Hcl 60 Mg Capsule.dr 60 Mg PO DAILY Combivent Respimat Inhal (Ipratropium/Albuterol Sulfate) 4 Gm Aer.w.adap 2 Puff INH PRN Q4HRS PRN Fibercon (Calcium Polycarbophil) 625 Mg Tablet 625 Mg PO DAILY Probiotic (Lactobacillus Acidophilus) 1 Each Capsule 1 Tab PO DAILY Levemir (Insulin Detemir) 100 Unit/1 Ml Vial 40 Unit SQ HS Levemir (Insulin Detemir) 100 Unit/1 Ml Vial 50 Unit SQ DAILYWBKFT Magnesium Oxide 400 Mg Tablet 400 Mg PO TIDWMEALS Colace (Docusate Sodium) 100 Mg Capsule 100 Mg PO PRN DAILY PRN Risperidone 0.5 Mg Tablet 4 Mg PO HS give with 4 mg dose to make 4.5 mg dose Buspirone Hcl 5 Mg Tablet 5 Mg PO TID Do not administer with grapefruit juice Tylenol (Acetaminophen) 325 Mg Tablet 650 Mg PO PRN Q4HRS PRN Max Acetaminophen dose is 4000mg in 24 hours from all sources for adults Levothyroxine Sodium 75 Mcg Tablet 75 Mcg PO DAILY06 Administer on an empty stomach: 1 hour before or 2 hours after a meal Metformin Hcl 500 Mg Tablet 1,000 Mg PO BIDWMEALS Give with meals Potassium Chloride 10 Meq Tab.er.prt 10 Meq PO DAILY On Thursday and Thursday Atorvastatin Calcium 80 Mg Tablet 80 Mg PO QHS I have reviewed the current psychotropics carefully including drug interactions. Risk benefit ratio favors no change other than as noted in my dictated progress note. Diagnosis: Problems: (1) Impulse control disorder (2) Borderline intellectual disability (3) Bipolar affective disorder, mixed (4) Anxiety disorder KIT BUENO MD February 14, 2018 18:55
[2018-02-14] MEDS: ATORVASTATIN CALCIUM 20 MG TABLET PO SCH (19:50)
[2018-02-14] MEDS: ALPRAZolam 0.5 MG TABLET PO SCH (19:51)
[2018-02-14] MEDS: risperiDONE 2 MG TABLET. PO SCH (19:51)
[2018-02-15] MEDS: LEVOTHYROXINE 75 MCG TABLET PO SCH (05:37)
[2018-02-15 06:20] VITALS: BP 138/75
[2018-02-15 07:51] LABS: BASO % 1 % (0-3); EOS # 0.1 x10^3/uL (0.0-0.7); EOS % 2 % (0-3); HEMATOCRIT 41.7 % (36.0-47.0); HEMOGLOBIN 13.9 g/dL (12.0-15.5); LYMPH # 3.1 x10^3/uL (1.0-4.8); LYMPH % 51 % (24-48); MEAN CORPUSCULAR HEMOGLOBIN 30 pg (25-35); MEAN CORPUSCULAR HGB CONC 34 g/dL (31-37); MEAN CORPUSCULAR VOLUME 91 fL (79-100); MONO # 0.5 x10^3/uL (0.0-1.1); MONO % 8 % (0-9); NEUT # 2.3 x10^3uL (1.8-7.7); NEUT % 38 % (31-73); PLATELET COUNT 301 x10^3/uL (140-400); RED BLOOD COUNT 4.58 x10^6/uL (3.50-5.40); RED CELL DISTRIBUTION WIDTH 15.2 % (11.5-14.5); WHITE BLOOD COUNT 6.1 x10^3/uL (4.0-11.0)
[2018-02-15] MEDS: INSULIN LISPRO 300 UNITS/3 ML INSULN.PEN. SQ SCH ×3 (08:00→17:00)
[2018-02-15 08:11] LABS: ALBUMIN 3.1 g/dL (3.4-5.0); ALBUMIN/GLOBULIN RATIO 0.8 (1.0-1.7); ALK PHOS 61 U/L (46-116); ALT (SGPT) 19 U/L (14-59); ANION GAP 5 (6-14); AST (SGOT) 10 U/L (15-37); BLOOD UREA NITROGEN 12 mg/dL (7-20); BUN/CREATININE RATIO 15 (6-20); CALCIUM 8.9 mg/dL (8.5-10.1); CARBON DIOXIDE 33 mmol/L (21-32); CHLORIDE 102 mmol/L (98-107); CREATININE 0.8 mg/dL (0.6-1.0); GFR 72.4; GLUCOSE 87 mg/dL (70-99); POTASSIUM 3.9 mmol/L (3.5-5.1); SODIUM 140 mmol/L (136-145); TOTAL BILIRUBIN 0.3 mg/dL (0.2-1.0); VAL ACID 60 mcg/mL (50-100)
[2018-02-15] MEDS: busPIRone 10 MG TABLET. PO SCH ×3 (08:40→19:59)
[2018-02-15] MEDS: DULoxetine HCL 60 MG CAPSULE.DR PO SCH (08:40)
[2018-02-15] MEDS: POTASSIUM CHLORIDE 10 MEQ TABLET.ER. PO SCH (08:40)
[2018-02-15] MEDS: CALCIUM POLYCARBOPHIL 625 MG TABLET PO SCH (08:40)
[2018-02-15] MEDS: LACTOBACILLUS RHAMNOSUS GG 1 CAPSULE. PO SCH (08:41)
[2018-02-15] MEDS: DIVALPROEX 125 MG CAP.SPRINK PO SCH ×2 (08:41→19:59)
[2018-02-15] MEDS: PRENATAL MULTIVITAMIN TABLET. PO SCH (08:41)
[2018-02-15] MEDS: MAGNESIUM OXIDE 400 MG TABLET PO SCH ×3 (08:41→16:53)
[2018-02-15] MEDS: OMEGA-3 FATTY ACIDS/FISH OIL 1,000 MG CAPSULE. PO SCH (08:41)
[2018-02-15] MEDS: FUROSEMIDE 40 MG TABLET PO SCH (08:41)
[2018-02-15] MEDS: metFORMIN 500 MG TABLET PO SCH ×2 (08:41→16:53)
[2018-02-15] MEDS: MELOXICAM 7.5 MG TABLET PO SCH (08:41)
[2018-02-15] MEDS: PREGABALIN 50 MG CAPSULE PO SCH ×2 (08:43→19:59)
[2018-02-15] MEDS: INSULIN GLARGINE 300 UNITS/3 ML INSULN.PEN. SQ SCH ×2 (08:44→20:01)
[2018-02-15 16:35] VITALS: BP 127/76
[2018-02-15] MEDS: risperiDONE 2 MG TABLET. PO SCH (19:59)
[2018-02-15] MEDS: ATORVASTATIN CALCIUM 20 MG TABLET PO SCH (19:59)
[2018-02-15] MEDS: ALPRAZolam 0.5 MG TABLET PO SCH (20:02)
--- NOTE | 2018-02-15 21:05 | PDOC ---
Exam Note: Jonathan Note: Please also refer to the separate dictated note~for this date of service dictated separately.~Patient seen individually. Discussed the patient with Nursing staff reviewed the chart.~Reviewed interim history and current functioning. Reviewed vital signs,~Labs/ Radiology~and current medications noted below. Continue current treatment with the changes noted in the dictated addendum note Assessment: Vital Signs: Vital Signs Date Time Temp Pulse Resp B/P (MAP) Pulse Ox O2 Delivery O2 Flow Rate FiO2 02/15/18 16:35 97.8 87 16 127/76 (93) 98 02/12/18 06:12 Room Air I&O Intake and Output 02/15/18 07:00 Intake Total 1440 ml Balance 1440 ml Intake Oral 1440 ml Labs: Laboratory Tests Test 02/15/18 07:23 02/15/18 07:36 02/15/18 11:54 02/15/18 16:59 White Blood Count 6.1 x10^3/uL (4.0-11.0) Red Blood Count 4.58 x10^6/uL (3.50-5.40) Hemoglobin 13.9 g/dL (12.0-15.5) Hematocrit 41.7 % (36.0-47.0) Mean Corpuscular Volume 91 fL (79-100) Mean Corpuscular Hemoglobin 30 pg (25-35) Mean Corpuscular Hemoglobin Concent 34 g/dL (31-37) Red Cell Distribution Width 15.2 % (11.5-14.5) H Platelet Count 301 x10^3/uL (140-400) Neutrophils (%) (Auto) 38 % (31-73) Lymphocytes (%) (Auto) 51 % (24-48) H Monocytes (%) (Auto) 8 % (0-9) Eosinophils (%) (Auto) 2 % (0-3) Basophils (%) (Auto) 1 % (0-3) Neutrophils # (Auto) 2.3 x10^3uL (1.8-7.7) Lymphocytes # (Auto) 3.1 x10^3/uL (1.0-4.8) Monocytes # (Auto) 0.5 x10^3/uL (0.0-1.1) Eosinophils # (Auto) 0.1 x10^3/uL (0.0-0.7) Basophils # (Auto) 0.0 x10^3/uL (0.0-0.2) Sodium Level 140 mmol/L (136-145) Potassium Level 3.9 mmol/L (3.5-5.1) Chloride Level 102 mmol/L (98-107) Carbon Dioxide Level 33 mmol/L (21-32) H Anion Gap 5 (6-14) L Blood Urea Nitrogen 12 mg/dL (7-20) Creatinine 0.8 mg/dL (0.6-1.0) Estimated GFR (Cockcroft-Gault) 72.4 BUN/Creatinine Ratio 15 (6-20) Glucose Level 87 mg/dL (70-99) Calcium Level 8.9 mg/dL (8.5-10.1) Total Bilirubin 0.3 mg/dL (0.2-1.0) Aspartate Amino Transferase (AST) 10 U/L (15-37) L Alanine Aminotransferase (ALT) 19 U/L (14-59) Alkaline Phosphatase 61 U/L (46-116) Total Protein 7.0 g/dL (6.4-8.2) Albumin 3.1 g/dL (3.4-5.0) L Albumin/Globulin Ratio 0.8 (1.0-1.7) L Valproic Acid Level 60 mcg/mL (50-100) Valproic Acid Last Dose Date 02/14/18 Valproic Acid Last Dose Time 2100 Glucose (Fingerstick) 91 mg/dL (70-99) 74 mg/dL (70-99) 60 mg/dL (70-99) L Test 02/15/18 19:18 Glucose (Fingerstick) 210 mg/dL (70-99) H Current Medications: Meds: Current Medications Acetaminophen (Tylenol) 650 mg PRN Q6HRS PRN PO PAIN / TEMP; Start 02/03/18 at 02:15; Stop 02/06/18 at 13:39; Status DC Multi-Ingredient Ointment (Analgesic [place]) 1 jurgen PRN QID PRN TP MUSCLE PAIN; Start 02/03/18 at 02:15 Al Hydroxide/Mg Hydroxide (Mylanta Plus Xs) 15 ml PRN AFTMEALHC PRN PO DYSPEPSIA; Start 02/03/18 at 02:15 Magnesium Hydroxide (Milk Of Magnesia) 2,400 mg PRN QHS PRN PO CONSTIPATION; Start 02/03/18 at 02:15 Acetaminophen (Tylenol) 650 mg PRN Q4HRS PRN PO PAIN / TEMP Last administered on 02/15/18 06:04; Start 02/03/18 at 05:00 Alprazolam (Xanax) 0.5 mg PRN TID PRN PO ANXIETY / AGITATION Last administered on 02/10/18 08:46; Start 02/03/18 at 05:00 Alprazolam (Xanax) 0.5 mg QHS PO Last administered on 02/15/18 20:02; Start at 21:00 Buspirone HCl (Buspar) 5 mg TID PO Last administered on 02/04/18 08:37; Start 02/03/18 at 09:00; Stop 02/04/18 at 13:41; Status DC Acetaminophen/ Butalbital/ Caffeine (Fioricet) 1 tab PRN Q8HRS PRN PO HEADACHE ; Start 02/03/18 at 05:00 Calcium Polycarbophil (Fibercon) 625 mg DAILY PO Last administered on 02/15/18 08:40; Start 02/03/18 at 09:00 Docusate Sodium (Colace) 100 mg PRN DAILY PRN PO CONSTIPATION; Start 02/03/18 at 05:00 Duloxetine HCl (Cymbalta) 60 mg DAILY PO Last administered on 02/15/18 08:40; Start 02/03/18 at 09:00 Furosemide (Lasix) 40 mg DAILY PO Last administered on 02/15/18 08:41; Start at 09:00 Levothyroxine Sodium (Synthroid) 75 mcg DAILY06 PO Last administered on 05:37; Start 02/03/18 at 06:00 Magnesium Oxide (Magnesium Oxide) 400 mg TIDWMEALS PO Last administered on 16:53; Start 02/03/18 at 08:00 Meloxicam (Mobic) 7.5 mg DAILY PO Last administered on 02/15/18 08:41; Start at 09:00 Metformin HCl (Glucophage) 1,000 mg BIDWMEALS PO Last administered on 02/15/18 16:53; Start 02/03/18 at 08:00 Potassium Chloride (Klor-Con) 10 meq DAILY PO Last administered on 02/15/18 08: 40; Start 02/03/18 at 09:00 Pregabalin (Lyrica) 50 mg BID PO Last administered on 02/15/18 19:59; Start at 09:00 Risperidone (RisperDAL) 4 mg HS PO Last administered on 02/15/18 19:59; Start 02/03/18 at 21:00 Tramadol HCl (Ultram) 50 mg PRN Q4HRS PRN PO PAIN Last administered on 14:56; Start 02/03/18 at 05:00 Valproic Acid (Depakene) 250 mg BID PO Last administered on 02/05/18 08:26; Start 02/03/18 at 09:00; Stop 02/05/18 at 19:18; Status DC Atorvastatin Calcium (Lipitor) 80 mg QHS PO Last administered on 02/15/18 19:59 ; Start 02/03/18 at 21:00 Non-Formulary Medication (Cinnamon Bark (Cinnamon)) 1,000 mg DAILY PO ; Start at 09:00; Status UNV Insulin Glargine (Lantus) 40 units HS SQ Last administered on 02/15/18 20:01; Start 02/03/18 at 21:00 Insulin Glargine (Lantus) 50 units DAILYWBKFT SQ Last administered on 02/15/18 08:44; Start 02/03/18 at 08:00 Non-Formulary Medication (Ipratropium/ Albuterol Sulfate (Combivent Respimat Inhal)) 2 puff PRN Q4HRS PRN INH SHORTNESS OF BREATH; Start 02/03/18 at 05:00; Stop 02/03/18 at 07:10; Status DC Lactobacillus Rhamnosus (Culturelle) 1 cap DAILY PO Last administered on 08:41; Start 02/03/18 at 09:00 Non-Formulary Medication (Menthol (Biofreeze)) 1 jurgen PRN QID PRN TP MUSCLE PAIN ; Start 02/03/18 at 05:00; Stop 02/03/18 at 07:08; Status DC Fish Oil (Fish Oil) 1,000 mg DAILY PO Last administered on 02/15/18 08:41; Start 02/03/18 at 09:00 Ondansetron HCl (Zofran Odt) 4 mg PRN Q6HRS PRN PO NAUSEA/VOMITING; Start 02/03 at 05:00 Phenytoin Sodium (Dilantin) 300 mg QHS PO Last administered on 02/09/18 20:33; Start 02/03/18 at 21:00; Stop 02/10/18 at 09:36; Status DC Albuterol/ Ipratropium (Duoneb) 3 ml PRN Q4HRS PRN NEB SHORTNESS OF BREATH; Start 02/03/18 at 07:15 Buspirone HCl (Buspar) 5 mg QID PO Last administered on 02/11/18 12:34; Start 02/04/18 at 17:00; Stop 02/11/18 at 14:23; Status DC Valproic Acid (Depakene) 375 mg BID PO ; Start 02/05/18 at 21:00; Stop 02/05/18 at 21:00; Status DC Divalproex Sodium (Depakote Sprinkles) 375 mg BID PO Last administered on 08:44; Start 02/05/18 at 21:00; Stop 02/09/18 at 18:34; Status DC Insulin Human Lispro (HumaLOG) 0-5 UNITS TIDWMEALS SQ Last administered on 18:32; Start 02/07/18 at 17:00 Dextrose 12.5 gm PRN Q15MIN PRN IV SEE COMMENTS; Start 02/07/18 at 15:15 Divalproex Sodium (Depakote Sprinkles) 500 mg BID PO Last administered on 09:10; Start 02/09/18 at 21:00; Stop 02/12/18 at 18:48; Status DC Buspirone HCl (Buspar) 10 mg TID PO Last administered on 02/15/18 19:59; Start 02/11/18 at 21:00 Prenat Multivit/ [place]/Iron/Folic Ac (Multivitamin ) 1 tab DAILY PO Last administered on 5/7/18at 08:41; Start 02/12/18 at 09:00 Divalproex Sodium (Depakote Sprinkles) 750 mg BID PO Last administered on at 19:59; Start 02/12/18 at 21:00 Active Scripts Active Reported Xanax (Alprazolam) 0.5 Mg Tablet 0.5 Mg PO PRN TID PRN Tramadol Hcl (Tramadol HCl) 50 Mg Tablet 50 Mg PO PRN Q4HRS PRN Obolxv-Wudiuyiv-Cwlu 50-325-40 (Butalb/Acetaminophen/Caffeine) 1 Each Tablet 1 Tab PO PRN Q8HRS PRN Xanax (Alprazolam) 0.5 Mg Tablet 0.5 Mg PO QHS Valproic Acid 250 Mg Capsule 250 Mg PO BID Biofreeze (Menthol) 118 Ml Gel..ml. 1 Jurgen TP PRN QID PRN Zofran (Ondansetron Hcl) 4 Mg Tablet 4 Mg PO PRN Q6HRS PRN Mobic (Meloxicam) 7.5 Mg Tablet 7.5 Mg PO DAILY Lasix (Furosemide) 40 Mg Tablet 40 Mg PO DAILY Fish Oil 1,000 Mg Softgel ([place]-3/Dha/Epa/Fish Oil) 1 Each Capsule 1 Cap PO DAILY Cinnamon (Cinnamon Bark) 500 Mg Capsule 1,000 Mg PO DAILY Phenytoin Sodium Extended 300 Mg Capsule 300 Mg PO QHS Lyrica (Pregabalin) 50 Mg Capsule 50 Mg PO BID Duloxetine Hcl 60 Mg Capsule.dr 60 Mg PO DAILY Combivent Respimat Inhal (Ipratropium/Albuterol Sulfate) 4 Gm Aer.w.adap 2 Puff INH PRN Q4HRS PRN Fibercon (Calcium Polycarbophil) 625 Mg Tablet 625 Mg PO DAILY Probiotic (Lactobacillus Acidophilus) 1 Each Capsule 1 Tab PO DAILY Levemir (Insulin Detemir) 100 Unit/1 Ml Vial 40 Unit SQ HS Levemir (Insulin Detemir) 100 Unit/1 Ml Vial 50 Unit SQ DAILYWBKFT Magnesium Oxide 400 Mg Tablet 400 Mg PO TIDWMEALS Colace (Docusate Sodium) 100 Mg Capsule 100 Mg PO PRN DAILY PRN Risperidone 0.5 Mg Tablet 4 Mg PO HS give with 4 mg dose to make 4.5 mg dose Buspirone Hcl 5 Mg Tablet 5 Mg PO TID Do not administer with grapefruit juice Tylenol (Acetaminophen) 325 Mg Tablet 650 Mg PO PRN Q4HRS PRN Max Acetaminophen dose is 4000mg in 24 hours from all sources for adults Levothyroxine Sodium 75 Mcg Tablet 75 Mcg PO DAILY06 Administer on an empty stomach: 1 hour before or 2 hours after a meal Metformin Hcl 500 Mg Tablet 1,000 Mg PO BIDWMEALS Give with meals Potassium Chloride 10 Meq Tab.er.prt 10 Meq PO DAILY On Thursday and Thursday Atorvastatin Calcium 80 Mg Tablet 80 Mg PO QHS I have reviewed the current psychotropics carefully including drug interactions. Risk benefit ratio favors no change other than as noted in my dictated progress note. Diagnosis: Problems: (1) Suicidal ideation (2) Medical clearance for psychiatric admission (3) Suicidal ideation (4) Anxiety disorder (5) Suicidal ideations (6) Homicidal ideation (7) Bipolar affective disorder, mixed (8) Borderline intellectual disability (9) Impulse control disorder KIT BUENO MD February 15, 2018 21:04
[2018-02-16] MEDS: LEVOTHYROXINE 75 MCG TABLET PO SCH (05:53)
--- NOTE | 2018-02-16 05:57 | PN ---
DATE: 02/13/2018 This is a late entry for 02/13/2018 and covers the elements not covered in my initial note of 02/13/2018. SUBJECTIVE: I met with the patient in the evening. The patient continues to be anxious, labile, but improved. REVIEW OF SYSTEMS: No CV, , pulmonary, eye system symptoms on review. MENTAL STATUS EXAM: Oriented to herself and situation. Speech coherent, pressured at times. Abstraction fair, computation impaired, language function intact, attention span short. Mood and affect somewhat anxious. LABORATORY DATA: Reviewed. IMPRESSION: Unchanged from initial note. PLAN: Continue psychotropics from my initial note. MAN Chintan BUENO MD DR: LACEY/haile JOB#: [id number] / [id number]
--- NOTE | 2018-02-16 06:01 | PN ---
DATE: 02/12/2018 This is a late entry for 02/12/2018 and covers elements not covered in my initial note of 02/12/2018. I met with the patient in the evening. The patient slept 8 hours previous evening, has been still anxious, labile, but improved. REVIEW OF SYSTEMS: No CV, , pulmonary, eye, ENT system symptoms on review. Reliability varies. MENTAL STATUS EXAM: Oriented to herself and situation. Speech coherent, rapid at times. Abstraction fair, computation impaired, language function intact. Mood and affect still somewhat labile. IMPRESSION: Unchanged from initial note. PLAN: Valproic acid level low at 37. Increase Depakote from 500 b.i.d. to 750 b.i.d. Check CBC, CMP level in 3 days. Rest unchanged from initial note. MAN Chintan BUENO MD DR: LACEY/haile JOB#: [id number] / [id number]
[2018-02-16 06:03] VITALS: BP 113/74
--- NOTE | 2018-02-16 06:05 | PN ---
DATE: 02/14/2018 PSYCHIATRIC PROGRESS NOTE This is a late entry for 02/14/2018, covers the elements not covered in my initial note of 02/14/2018. SUBJECTIVE: I met with the patient in the evening. Overall, the patient slept 8-1/2 hours. Still pressured speech due to anxiety, but improved mood lability. REVIEW OF SYSTEMS: No CV, , pulmonary, eye, ENT system symptoms on review. MENTAL STATUS EXAMINATION: Oriented to herself and situation. Speech coherent, rapid at times. Abstraction fair. Computation impaired. Language function intact. Attention span short. Mood and affect remain somewhat anxious, but improved. LABORATORY DATA: Reviewed. IMPRESSION: Unchanged from initial note. PLAN: Continue psychotropics from my initial note. MAN Chintan BUENO MD DR: LACEY/haile JOB#: [id number] / [id number]
[2018-02-16] MEDS: INSULIN LISPRO 300 UNITS/3 ML INSULN.PEN. SQ SCH ×3 (07:46→17:00)
[2018-02-16] MEDS: MELOXICAM 7.5 MG TABLET PO SCH (08:08)
[2018-02-16] MEDS: POTASSIUM CHLORIDE 10 MEQ TABLET.ER. PO SCH (08:08)
[2018-02-16] MEDS: CALCIUM POLYCARBOPHIL 625 MG TABLET PO SCH (08:08)
[2018-02-16] MEDS: PRENATAL MULTIVITAMIN TABLET. PO SCH (08:08)
[2018-02-16] MEDS: LACTOBACILLUS RHAMNOSUS GG 1 CAPSULE. PO SCH (08:09)
[2018-02-16] MEDS: MAGNESIUM OXIDE 400 MG TABLET PO SCH ×3 (08:09→17:23)
[2018-02-16] MEDS: FUROSEMIDE 40 MG TABLET PO SCH (08:09)
[2018-02-16] MEDS: busPIRone 10 MG TABLET. PO SCH ×3 (08:09→20:33)
[2018-02-16] MEDS: DIVALPROEX 125 MG CAP.SPRINK PO SCH ×2 (08:09→20:33)
[2018-02-16] MEDS: OMEGA-3 FATTY ACIDS/FISH OIL 1,000 MG CAPSULE. PO SCH (08:09)
[2018-02-16] MEDS: DULoxetine HCL 60 MG CAPSULE.DR PO SCH (08:09)
[2018-02-16] MEDS: metFORMIN 500 MG TABLET PO SCH ×2 (08:09→17:23)
[2018-02-16] MEDS: PREGABALIN 50 MG CAPSULE PO SCH ×2 (08:11→20:35)
[2018-02-16] MEDS: INSULIN GLARGINE 300 UNITS/3 ML INSULN.PEN. SQ SCH ×2 (08:11→20:36)
[2018-02-16 16:20] VITALS: BP 139/67
[2018-02-16] MEDS: risperiDONE 2 MG TABLET. PO SCH (20:33)
[2018-02-16] MEDS: ATORVASTATIN CALCIUM 20 MG TABLET PO SCH (20:33)
[2018-02-16] MEDS: ALPRAZolam 0.5 MG TABLET PO SCH (20:34)
--- NOTE | 2018-02-16 21:04 | PDOC ---
Exam Note: Jonathan Note: Please also refer to the separate dictated note~for this date of service dictated separately.~Patient seen individually. Discussed the patient with Nursing staff reviewed the chart.~Reviewed interim history and current functioning. Reviewed vital signs,~Labs/ Radiology~and current medications noted below. Continue current treatment with the changes noted in the dictated addendum note Assessment: Vital Signs: Vital Signs Date Time Temp Pulse Resp B/P (MAP) Pulse Ox O2 Delivery O2 Flow Rate FiO2 02/16/18 16:20 98.4 87 16 139/67 (91) 95 02/16/18 06:03 Room Air I&O Intake and Output 02/16/18 07:00 Intake Total 1860 ml Balance 1860 ml Intake Oral 1860 ml # Voids 1 # Bowel Movements 1 Labs: Laboratory Tests Test 02/16/18 07:33 02/16/18 11:32 02/16/18 16:46 02/16/18 19:27 Glucose (Fingerstick) 83 mg/dL (70-99) 138 mg/dL (70-99) H 119 mg/dL (70-99) H 147 mg/dL (70-99) H Current Medications: Meds: Current Medications Acetaminophen (Tylenol) 650 mg PRN Q6HRS PRN PO PAIN / TEMP; Start 02/03/18 at 02:15; Stop 02/06/18 at 13:39; Status DC Multi-Ingredient Ointment (Analgesic [place]) 1 jurgen PRN QID PRN TP MUSCLE PAIN; Start 02/03/18 at 02:15 Al Hydroxide/Mg Hydroxide (Mylanta Plus Xs) 15 ml PRN AFTMEALHC PRN PO DYSPEPSIA; Start 02/03/18 at 02:15 Magnesium Hydroxide (Milk Of Magnesia) 2,400 mg PRN QHS PRN PO CONSTIPATION; Start 02/03/18 at 02:15 Acetaminophen (Tylenol) 650 mg PRN Q4HRS PRN PO PAIN / TEMP Last administered on 02/15/18at 06:04; Start 02/03/18 at 05:00 Alprazolam (Xanax) 0.5 mg PRN TID PRN PO ANXIETY / AGITATION Last administered on 02/10/18at 08:46; Start 02/03/18 at 05:00 Alprazolam (Xanax) 0.5 mg QHS PO Last administered on 02/16/18 20:34; Start at 21:00 Buspirone HCl (Buspar) 5 mg TID PO Last administered on 02/04/18 08:37; Start 02/03/18 at 09:00; Stop 02/04/18 at 13:41; Status DC Acetaminophen/ Butalbital/ Caffeine (Fioricet) 1 tab PRN Q8HRS PRN PO HEADACHE ; Start 02/03/18 at 05:00 Calcium Polycarbophil (Fibercon) 625 mg DAILY PO Last administered on 02/16/18 08:08; Start 02/03/18 at 09:00 Docusate Sodium (Colace) 100 mg PRN DAILY PRN PO CONSTIPATION; Start 02/03/18 at 05:00 Duloxetine HCl (Cymbalta) 60 mg DAILY PO Last administered on 02/16/18 08:09; Start 02/03/18 at 09:00 Furosemide (Lasix) 40 mg DAILY PO Last administered on 02/16/18 08:09; Start at 09:00 Levothyroxine Sodium (Synthroid) 75 mcg DAILY06 PO Last administered on 05:53; Start 02/03/18 at 06:00 Magnesium Oxide (Magnesium Oxide) 400 mg TIDWMEALS PO Last administered on 17:23; Start 02/03/18 at 08:00 Meloxicam (Mobic) 7.5 mg DAILY PO Last administered on 02/16/18 08:08; Start at 09:00 Metformin HCl (Glucophage) 1,000 mg BIDWMEALS PO Last administered on 02/16/18 17:23; Start 02/03/18 at 08:00 Potassium Chloride (Klor-Con) 10 meq DAILY PO Last administered on 02/16/18 08: 08; Start 02/03/18 at 09:00 Pregabalin (Lyrica) 50 mg BID PO Last administered on 02/16/18 20:35; Start at 09:00 Risperidone (RisperDAL) 4 mg HS PO Last administered on 02/16/18 20:33; Start 02/03/18 at 21:00 Tramadol HCl (Ultram) 50 mg PRN Q4HRS PRN PO PAIN Last administered on 14:56; Start 02/03/18 at 05:00 Valproic Acid (Depakene) 250 mg BID PO Last administered on 02/05/18 08:26; Start 02/03/18 at 09:00; Stop 02/05/18 at 19:18; Status DC Atorvastatin Calcium (Lipitor) 80 mg QHS PO Last administered on 02/16/18 20:33 ; Start 02/03/18 at 21:00 Non-Formulary Medication (Cinnamon Bark (Cinnamon)) 1,000 mg DAILY PO ; Start at 09:00; Status UNV Insulin Glargine (Lantus) 40 units HS SQ Last administered on 02/16/18 20:36; Start 02/03/18 at 21:00 Insulin Glargine (Lantus) 50 units DAILYWBKFT SQ Last administered on 02/16/18 08:11; Start 02/03/18 at 08:00 Non-Formulary Medication (Ipratropium/ Albuterol Sulfate (Combivent Respimat Inhal)) 2 puff PRN Q4HRS PRN INH SHORTNESS OF BREATH; Start 02/03/18 at 05:00; Stop 02/03/18 at 07:10; Status DC Lactobacillus Rhamnosus (Culturelle) 1 cap DAILY PO Last administered on 08:09; Start 02/03/18 at 09:00 Non-Formulary Medication (Menthol (Biofreeze)) 1 jurgen PRN QID PRN TP MUSCLE PAIN ; Start 02/03/18 at 05:00; Stop 02/03/18 at 07:08; Status DC Fish Oil (Fish Oil) 1,000 mg DAILY PO Last administered on 02/16/18 08:09; Start 02/03/18 at 09:00 Ondansetron HCl (Zofran Odt) 4 mg PRN Q6HRS PRN PO NAUSEA/VOMITING; Start 02/03 at 05:00 Phenytoin Sodium (Dilantin) 300 mg QHS PO Last administered on 02/09/18 20:33; Start 02/03/18 at 21:00; Stop 02/10/18 at 09:36; Status DC Albuterol/ Ipratropium (Duoneb) 3 ml PRN Q4HRS PRN NEB SHORTNESS OF BREATH; Start 02/03/18 at 07:15 Buspirone HCl (Buspar) 5 mg QID PO Last administered on 02/11/18at 12:34; Start 02/04/18 at 17:00; Stop 02/11/18 at 14:23; Status DC Valproic Acid (Depakene) 375 mg BID PO ; Start 02/05/18 at 21:00; Stop 02/05/18 at 21:00; Status DC Divalproex Sodium (Depakote Sprinkles) 375 mg BID PO Last administered on at 08:44; Start 02/05/18 at 21:00; Stop 02/09/18 at 18:34; Status DC Insulin Human Lispro (HumaLOG) 0-5 UNITS TIDWMEALS SQ Last administered on at 18:32; Start 02/07/18 at 17:00 Dextrose 12.5 gm PRN Q15MIN PRN IV SEE COMMENTS; Start 02/07/18 at 15:15 Divalproex Sodium (Depakote Sprinkles) 500 mg BID PO Last administered on at 09:10; Start 02/09/18 at 21:00; Stop 02/12/18 at 18:48; Status DC Buspirone HCl (Buspar) 10 mg TID PO Last administered on 02/16/18 20:33; Start 02/11/18 at 21:00 Prenat Multivit/ Machine [employer] Case Trim/Iron/Folic Ac (Multivitamin ) 1 tab DAILY PO Last administered on 02/16/18 08:08; Start 02/12/18 at 09:00 Divalproex Sodium (Depakote Sprinkles) 750 mg BID PO Last administered on 20:33; Start 02/12/18 at 21:00 Active Scripts Active Reported Xanax (Alprazolam) 0.5 Mg Tablet 0.5 Mg PO PRN TID PRN Tramadol Hcl (Tramadol HCl) 50 Mg Tablet 50 Mg PO PRN Q4HRS PRN Aosmwf-Gvmjipji-Qlvs 50-325-40 (Butalb/Acetaminophen/Caffeine) 1 Each Tablet 1 Tab PO PRN Q8HRS PRN Xanax (Alprazolam) 0.5 Mg Tablet 0.5 Mg PO QHS Valproic Acid 250 Mg Capsule 250 Mg PO BID Biofreeze (Menthol) 118 Ml Gel..ml. 1 Jurgen TP PRN QID PRN Zofran (Ondansetron Hcl) 4 Mg Tablet 4 Mg PO PRN Q6HRS PRN Mobic (Meloxicam) 7.5 Mg Tablet 7.5 Mg PO DAILY Lasix (Furosemide) 40 Mg Tablet 40 Mg PO DAILY Fish Oil 1,000 Mg Softgel ([place]-3/Dha/Epa/Fish Oil) 1 Each Capsule 1 Cap PO DAILY Cinnamon (Cinnamon Bark) 500 Mg Capsule 1,000 Mg PO DAILY Phenytoin Sodium Extended 300 Mg Capsule 300 Mg PO QHS Lyrica (Pregabalin) 50 Mg Capsule 50 Mg PO BID Duloxetine Hcl 60 Mg Capsule.dr 60 Mg PO DAILY Combivent Respimat Inhal (Ipratropium/Albuterol Sulfate) 4 Gm Aer.w.adap 2 Puff INH PRN Q4HRS PRN Fibercon (Calcium Polycarbophil) 625 Mg Tablet 625 Mg PO DAILY Probiotic (Lactobacillus Acidophilus) 1 Each Capsule 1 Tab PO DAILY Levemir (Insulin Detemir) 100 Unit/1 Ml Vial 40 Unit SQ HS Levemir (Insulin Detemir) 100 Unit/1 Ml Vial 50 Unit SQ DAILYWBKFT Magnesium Oxide 400 Mg Tablet 400 Mg PO TIDWMEALS Colace (Docusate Sodium) 100 Mg Capsule 100 Mg PO PRN DAILY PRN Risperidone 0.5 Mg Tablet 4 Mg PO HS give with 4 mg dose to make 4.5 mg dose Buspirone Hcl 5 Mg Tablet 5 Mg PO TID Do not administer with grapefruit juice Tylenol (Acetaminophen) 325 Mg Tablet 650 Mg PO PRN Q4HRS PRN Max Acetaminophen dose is 4000mg in 24 hours from all sources for adults Levothyroxine Sodium 75 Mcg Tablet 75 Mcg PO DAILY06 Administer on an empty stomach: 1 hour before or 2 hours after a meal Metformin Hcl 500 Mg Tablet 1,000 Mg PO BIDWMEALS Give with meals Potassium Chloride 10 Meq Tab.er.prt 10 Meq PO DAILY On Thursday and Thursday Atorvastatin Calcium 80 Mg Tablet 80 Mg PO QHS I have reviewed the current psychotropics carefully including drug interactions. Risk benefit ratio favors no change other than as noted in my dictated progress note. Diagnosis: Problems: (1) Suicidal ideation (2) Medical clearance for psychiatric admission (3) Suicidal ideation (4) Anxiety disorder (5) Suicidal ideations (6) Homicidal ideation (7) Bipolar affective disorder, mixed (8) Borderline intellectual disability (9) Impulse control disorder KIT BUENO MD February 16, 2018 21:04
--- NOTE | 2018-02-17 00:30 | PN ---
DATE: 02/15/2018 PSYCHIATRIC PROGRESS NOTE This is a late entry 02/15/2018 covers elements not covered in my initial note 02/15/2018. SUBJECTIVE: I met with the patient in the evening. The patient slept 8-1/4 hours, remains somewhat withdrawn at times, anxious, but less labile. REVIEW OF SYSTEMS: No CV, , pulmonary, eye, ENT system symptoms on review. MENTAL STATUS EXAM: Oriented to herself and situation. Speech is coherent, abstraction fair, computation impaired, language function intact. Mood and affect less labile. LABORATORY DATA: Reviewed. IMPRESSION: Unchanged from initial note. Valproic acid level on 02/15/2018 is 60, therapeutic. Continue current psychotropics from initial note. MAN Chintan BUENO MD DR: LACEY/haile JOB#: [id number] / [id number]
[2018-02-17] MEDS ORDERED: DIVA125C PO (00:39)
[2018-02-17] MEDS ORDERED: INSU100I11 SQ (00:40)
[2018-02-17] MEDS ORDERED: MAG355OR17 PO (00:41)
[2018-02-17] MEDS ORDERED: MAGN2400 PO (00:42)
[2018-02-17] MEDS ORDERED: PNV1TABL25 PO (00:42)
[2018-02-17 05:56] VITALS: BP 134/74
[2018-02-17] MEDS: LEVOTHYROXINE 75 MCG TABLET PO SCH (06:07)
[2018-02-17] MEDS: INSULIN LISPRO 300 UNITS/3 ML INSULN.PEN. SQ SCH ×2 (08:00→12:00)
[2018-02-17] MEDS: MAGNESIUM OXIDE 400 MG TABLET PO SCH ×2 (09:11→12:54)
[2018-02-17] MEDS: CALCIUM POLYCARBOPHIL 625 MG TABLET PO SCH (09:11)
[2018-02-17] MEDS: busPIRone 10 MG TABLET. PO SCH ×2 (09:11→12:54)
[2018-02-17] MEDS: LACTOBACILLUS RHAMNOSUS GG 1 CAPSULE. PO SCH (09:12)
[2018-02-17] MEDS: PRENATAL MULTIVITAMIN TABLET. PO SCH (09:12)
[2018-02-17] MEDS: metFORMIN 500 MG TABLET PO SCH (09:12)
[2018-02-17] MEDS: POTASSIUM CHLORIDE 10 MEQ TABLET.ER. PO SCH (09:12)
[2018-02-17] MEDS: OMEGA-3 FATTY ACIDS/FISH OIL 1,000 MG CAPSULE. PO SCH (09:12)
[2018-02-17] MEDS: FUROSEMIDE 40 MG TABLET PO SCH (09:12)
[2018-02-17] MEDS: DULoxetine HCL 60 MG CAPSULE.DR PO SCH (09:12)
[2018-02-17] MEDS: MELOXICAM 7.5 MG TABLET PO SCH (09:12)
[2018-02-17] MEDS: DIVALPROEX 125 MG CAP.SPRINK PO SCH (09:13)
[2018-02-17] MEDS: PREGABALIN 50 MG CAPSULE PO SCH (09:14)
[2018-02-17] MEDS: INSULIN GLARGINE 300 UNITS/3 ML INSULN.PEN. SQ SCH (09:15)
[2018-02-17] MEDS ORDERED: BUSP10TA PO (11:00)
--- NOTE | 2018-02-17 23:22 | EEG ---
DATE OF SERVICE: 02/09/2018 ELECTROENCEPHALOGRAM HISTORY: This is a 62-year-old female, who was referred for an EEG to rule out sleep breathing disorder versus depression, to rule out central nervous system pathology versus seizure disorder. The patient has had history of seizure of several years of unknown etiology. She has been on Dilantin. The last seizure was 2 years ago. EEG DESCRIPTION: This is a digital 18-channel EEG was performed using the standard 10-20 electrode placement system. Photic stimulation and hyperventilation were used as activation procedure. The patient was not sleep deprived. The patient was not sedated. The EEG opened with the patient in the drowsy state characterized by posterior dominant rhythm of 7-8 cycles per second with an amplitude of 25-35 microvolts. It was bilaterally symmetric and attenuated with eye opening. The patient achieved stage 1 and early stage 2 sleep characterized by slowing of the posterior dominant rhythm and attenuation of the amplitudes. Excessive movement and muscle artifacts were also noted throughout the recording. Photic stimulation produced no driving responses and hyperventilation indicated no changes in the background activities. IMPRESSION: This is basically a normal waking and drowsy EEG. No epileptiform activity was seen. The lack of epileptiform discharges does not always rule out seizure; therefore, clinical correlation is advised. RECOMMENDATION: we will recommend to discontinue Dilantin and watch for any recurrence of a seizure. M Claudia STILES MD DR: ANT/haile JOB#: [id number] / [id number]
--- NOTE | 2018-02-18 02:52 | PN ---
DATE: 02/16/2018 PSYCHIATRIC PROGRESS NOTE This is a late entry 02/16/2018 covers elements not covered in my initial note of 02/16/2018. I met with the patient in the evening. Overall, the patient slept 8-1/2 hours. Appears less anxious, less labile, and not aggressive. REVIEW OF SYSTEMS: No CV, , pulmonary, eye system symptoms on review. MENTAL STATUS EXAM: Oriented to herself and situation. Speech coherent, less pressured. Abstraction fair, computation impaired. Mood and affect is improved. IMPRESSION: Unchanged from initial note. PLAN: Continue current psychotropics, with discharge to nursing facility on 02/17/2018. MAN Chintan BUENO MD DR: LACEY/haile JOB#: [id number] / [id number]
--- NOTE | 2018-02-18 13:33 | PN ---
DATE: 02/10/2018 SUBJECTIVE: The patient denies any recurrent seizure. She has been on phenytoin since yesterday. Her EEG was negative for seizure. She denies any new medical or neurological complaints. She continues to have lower back pain, and anxiety. OBJECTIVE: GENERAL: Obese white female, not in acute distress. VITAL SIGNS: Stable, blood pressure 133/89, respiratory rate 20, pulse is 62, temperature 97.9, oxygen saturation 98% on room air. HEENT: Normocephalic, atraumatic, otherwise unremarkable. NECK: Supple. Negative for carotid bruit, lymphadenopathy, or thyromegaly. LUNGS: Clear to A and P. CARDIOVASCULAR: Regular rhythm, normal S1-S2. ABDOMEN: Soft. Bowel sounds positive. EXTREMITIES: Negative for cyanosis, clubbing, or pitting edema. NEUROLOGIC: Mental Status: The patient is alert and oriented x 3. Speech is fluent. There is no language dysfunction, otherwise, unremarkable. Cranial nerves are intact. No focal motor or sensory deficit. Deep tendon reflexes were symmetric and hypoactive with absent Achilles responses. Gait: The patient uses a walker for ambulation. IMPRESSION: 1. History of seizure of unknown etiology. The patient has been on Depakote for mood stabilization and Dilantin has been recently discontinued. 2. Multiple medical problems include hypothyroidism, diabetes mellitus, hypertension, hyperlipidemia, and coronary artery disease. 3. Multiple psychiatric problems which include bipolar disorders, schizoaffective disorders, and anxiety disorders. RECOMMENDATIONS: Continue with current medical and psychiatric care. Patricia STILES MD DR: ANT/haile JOB#: [id number] / [id number]
--- NOTE | 2018-02-18 15:17 | PN ---
DATE: SUBJECTIVE: The patient denies any recurrence of seizure. She denies any new medical neurological complaints. Dilantin was discontinued and Depakote has been increased to 750 mg b.i.d. for mood stabilization. OBJECTIVE: GENERAL: Well-developed, well-nourished female, not in acute distress. VITAL SIGNS: Blood pressure 99/94, respiratory rate 18, pulse is 75 and regular, temperature 97.8, oxygen saturation 94% on room air. HEENT: Normocephalic, atraumatic, otherwise unremarkable. NECK: Supple. Negative for carotid bruit, lymphadenopathy or thyromegaly. LUNGS: Clear to A and P. CARDIOVASCULAR: Regular rhythm. Normal S1 and S2. ABDOMEN: Soft. Bowel sounds positive. EXTREMITIES: Negative for cyanosis, clubbing or pitting edema. NEUROLOGIC: Mental status: The patient is alert and oriented x 3. The speech is fluent. There is no language dysfunction. The patient denies hallucination or delusion. Cranial nerves are intact. No focal motor or sensory deficit. Deep tendon reflexes were symmetric and hypoactive with absent Achilles responses. Gait: The patient uses a walker for ambulation. LABORATORY DATA: From 02/12/2018 revealed white blood cells of 6.1 thousand, hemoglobin 13.5, hematocrit 39.3, platelet count 269. Valproic acid is 37. IMPRESSION: 1. History of seizure disorder, etiology uncertain, of Dilantin. 2. Chronic low back pain. 3. Bipolar and anxiety disorder. 4. Multiple medical problems include hypertension, hyperlipidemia, peripheral neuropathy in the lower extremities, diabetes mellitus and hypothyroidism. RECOMMENDATIONS: Continue with current medical and neurological care. M Claudia STILES MD DR: ANT/haile JOB#: [id number] / [id number]
--- NOTE | 2018-02-18 15:23 | PN ---
DATE: 02/16/2018 SUBJECTIVE: The patient denies any new medical or neurological complaints. OBJECTIVE: GENERAL: Obese white female, not in acute distress. VITAL SIGNS: Blood pressure 134/74, respiratory rate 16, pulse 73 and regular, temperature 97.3, oxygen saturation 93% on room air. HEENT: Normocephalic, atraumatic, otherwise unremarkable. NECK: Supple. Negative for carotid bruit, lymphadenopathy, or thyromegaly. LUNGS: Clear to A and P. CARDIOVASCULAR: Regular rate and rhythm, normal S1-S2. ABDOMEN: Soft. Bowel sounds positive. EXTREMITIES: Negative for cyanosis, clubbing, or pitting edema. NEUROLOGIC: Mental Status: The patient is alert and oriented x 3. Speech is fluent. There is no language dysfunction. Memory, judgment, and abstract thinking are normal. The patient denies hallucination or delusion. Cranial nerves are intact. No focal motor or sensory deficit. Deep tendon reflexes are symmetric and hypoactive with absent Achilles responses. Gait: The patient uses a walker for ambulation. LABORATORY DATA: From 02/15/2018 revealed white blood cells of 6.1 thousand, hemoglobin 13.9, hematocrit 41.7, platelet count 301. Valproic acid level is therapeutic at 60 and glucose today is 119. IMPRESSION: 1. History of seizure - no recurrence in the last 2 years. The patient is off Dilantin. 2. Multiple medical problems including diabetes mellitus, hypothyroidism, hypertension, hyperlipidemia, and chronic low back pain. 3. Multiple psychiatric problems including bipolar disorder and schizoaffective disorder and anxiety. RECOMMENDATION: Continue with current medical and psychiatric care. M Claudia STILES MD DR: ANT/haile JOB#: [id number] / [id number]
--- NOTE | 2018-02-18 21:06 | PDOC ---
Exam Note: Jonathan Note: Late of entry for date of service February 17, 2018.Please also refer to the separate dictated note~for this date of service dictated separately.~Patient seen individually. Discussed the patient with Nursing staff reviewed the chart.~ Reviewed interim history and current functioning. Reviewed vital signs,~Labs/ Radiology~and current medications noted below. Continue current treatment with the changes noted in the dictated addendum note Assessment: Vital Signs: Vital Signs Date Time Temp Pulse Resp B/P (MAP) Pulse Ox O2 Delivery O2 Flow Rate FiO2 02/17/18 05:56 97.3 73 16 134/74 (94) 93 Room Air I&O Intake and Output 02/18/18 07:00 Intake Total 1080 ml Balance 1080 ml Intake Oral 1080 ml Current Medications: Meds: Current Medications Acetaminophen (Tylenol) 650 mg PRN Q6HRS PRN PO PAIN / TEMP; Start 02/03/18 at 02:15; Stop 02/06/18 at 13:39; Status DC Multi-Ingredient Ointment (Analgesic [place]) 1 jurgen PRN QID PRN TP MUSCLE PAIN; Start 02/03/18 at 02:15; Stop 02/17/18 at 16:21; Status DC Al Hydroxide/Mg Hydroxide (Mylanta Plus Xs) 15 ml PRN AFTMEALHC PRN PO DYSPEPSIA; Start 02/03/18 at 02:15; Stop 02/17/18 at 16:21; Status DC Magnesium Hydroxide (Milk Of Magnesia) 2,400 mg PRN QHS PRN PO CONSTIPATION; Start 02/03/18 at 02:15; Stop 02/17/18 at 16:21; Status DC Acetaminophen (Tylenol) 650 mg PRN Q4HRS PRN PO PAIN / TEMP Last administered on 02/15/18at 06:04; Start 02/03/18 at 05:00; Stop 02/17/18 at 16:21; Status DC Alprazolam (Xanax) 0.5 mg PRN TID PRN PO ANXIETY / AGITATION Last administered on 02/10/18at 08:46; Start 02/03/18 at 05:00; Stop 02/17/18 at 16:21; Status DC Alprazolam (Xanax) 0.5 mg QHS PO Last administered on 02/16/18at 20:34; Start at 21:00; Stop 02/17/18 at 16:21; Status DC Buspirone HCl (Buspar) 5 mg TID PO Last administered on 02/04/18at 08:37; Start 02/03/18 at 09:00; Stop 02/04/18 at 13:41; Status DC Acetaminophen/ Butalbital/ Caffeine (Fioricet) 1 tab PRN Q8HRS PRN PO HEADACHE ; Start 02/03/18 at 05:00; Stop 02/17/18 at 16:21; Status DC Calcium Polycarbophil (Fibercon) 625 mg DAILY PO Last administered on 02/17/18at 09:11; Start 02/03/18 at 09:00; Stop 02/17/18 at 16:21; Status DC Docusate Sodium (Colace) 100 mg PRN DAILY PRN PO CONSTIPATION; Start 02/03/18 at 05:00; Stop 02/17/18 at 16:21; Status DC Duloxetine HCl (Cymbalta) 60 mg DAILY PO Last administered on 02/17/18at 09:12; Start 02/03/18 at 09:00; Stop 02/17/18 at 16:21; Status DC Furosemide (Lasix) 40 mg DAILY PO Last administered on 02/17/18at 09:12; Start at 09:00; Stop 02/17/18 at 16:21; Status DC Levothyroxine Sodium (Synthroid) 75 mcg DAILY06 PO Last administered on at 06:07; Start 02/03/18 at 06:00; Stop 02/17/18 at 16:21; Status DC Magnesium Oxide (Magnesium Oxide) 400 mg TIDWMEALS PO Last administered on at 12:54; Start 02/03/18 at 08:00; Stop 02/17/18 at 16:21; Status DC Meloxicam (Mobic) 7.5 mg DAILY PO Last administered on 02/17/18at 09:12; Start at 09:00; Stop 02/17/18 at 16:21; Status DC Metformin HCl (Glucophage) 1,000 mg BIDWMEALS PO Last administered on 02/17/18at 09:12; Start 02/03/18 at 08:00; Stop 02/17/18 at 16:21; Status DC Potassium Chloride (Klor-Con) 10 meq DAILY PO Last administered on 02/17/18 09: 12; Start 02/03/18 at 09:00; Stop 02/17/18 at 16:21; Status DC Pregabalin (Lyrica) 50 mg BID PO Last administered on 02/17/18 09:14; Start at 09:00; Stop 02/17/18 at 16:21; Status DC Risperidone (RisperDAL) 4 mg HS PO Last administered on 02/16/18 20:33; Start 02/03/18 at 21:00; Stop 02/17/18 at 16:21; Status DC Tramadol HCl (Ultram) 50 mg PRN Q4HRS PRN PO PAIN Last administered on at 14:56; Start 02/03/18 at 05:00; Stop 02/17/18 at 16:21; Status DC Valproic Acid (Depakene) 250 mg BID PO Last administered on 02/05/18at 08:26; Start 02/03/18 at 09:00; Stop 02/05/18 at 19:18; Status DC Atorvastatin Calcium (Lipitor) 80 mg QHS PO Last administered on 02/16/18 20:33 ; Start 02/03/18 at 21:00; Stop 02/17/18 at 16:21; Status DC Non-Formulary Medication (Cinnamon Bark (Cinnamon)) 1,000 mg DAILY PO ; Start at 09:00; Status UNV Insulin Glargine (Lantus) 40 units HS SQ Last administered on 02/16/18at 20:36; Start 02/03/18 at 21:00; Stop 02/17/18 at 16:21; Status DC Insulin Glargine (Lantus) 50 units DAILYWBKFT SQ Last administered on 02/17/18at 09:15; Start 02/03/18 at 08:00; Stop 02/17/18 at 16:21; Status DC Non-Formulary Medication (Ipratropium/ Albuterol Sulfate (Combivent Respimat Inhal)) 2 puff PRN Q4HRS PRN INH SHORTNESS OF BREATH; Start 02/03/18 at 05:00; Stop 02/03/18 at 07:10; Status DC Lactobacillus Rhamnosus (Culturelle) 1 cap DAILY PO Last administered on at 09:12; Start 02/03/18 at 09:00; Stop 02/17/18 at 16:21; Status DC Non-Formulary Medication (Menthol (Biofreeze)) 1 jurgen PRN QID PRN TP MUSCLE PAIN ; Start 02/03/18 at 05:00; Stop 02/03/18 at 07:08; Status DC Fish Oil (Fish Oil) 1,000 mg DAILY PO Last administered on 02/17/18at 09:12; Start 02/03/18 at 09:00; Stop 02/17/18 at 16:21; Status DC Ondansetron HCl (Zofran Odt) 4 mg PRN Q6HRS PRN PO NAUSEA/VOMITING; Start 02/03 at 05:00; Stop 02/17/18 at 16:21; Status DC Phenytoin Sodium (Dilantin) 300 mg QHS PO Last administered on 02/09/18at 20:33; Start 02/03/18 at 21:00; Stop 02/10/18 at 09:36; Status DC Albuterol/ Ipratropium (Duoneb) 3 ml PRN Q4HRS PRN NEB SHORTNESS OF BREATH; Start 02/03/18 at 07:15; Stop 02/17/18 at 16:21; Status DC Buspirone HCl (Buspar) 5 mg QID PO Last administered on 02/11/18at 12:34; Start 02/04/18 at 17:00; Stop 02/11/18 at 14:23; Status DC Valproic Acid (Depakene) 375 mg BID PO ; Start 02/05/18 at 21:00; Stop 02/05/18 at 21:00; Status DC Divalproex Sodium (Depakote Sprinkles) 375 mg BID PO Last administered on at 08:44; Start 02/05/18 at 21:00; Stop 02/09/18 at 18:34; Status DC Insulin Human Lispro (HumaLOG) 0-5 UNITS TIDWMEALS SQ Last administered on at 18:32; Start 02/07/18 at 17:00; Stop 02/17/18 at 16:21; Status DC Dextrose 12.5 gm PRN Q15MIN PRN IV SEE COMMENTS; Start 02/07/18 at 15:15; Stop 02/17/18 at 16:21; Status DC Divalproex Sodium (Depakote Sprinkles) 500 mg BID PO Last administered on at 09:10; Start 02/09/18 at 21:00; Stop 02/12/18 at 18:48; Status DC Buspirone HCl (Buspar) 10 mg TID PO Last administered on 02/17/18at 12:54; Start 02/11/18 at 21:00; Stop 02/17/18 at 16:21; Status DC Prenat Multivit/ Diet Consultant/Iron/Folic Ac (Multivitamin ) 1 tab DAILY PO Last administered on 02/17/18at 09:12; Start 02/12/18 at 09:00; Stop 02/17/18 at 16: 21; Status DC Divalproex Sodium (Depakote Sprinkles) 750 mg BID PO Last administered on at 09:13; Start 02/12/18 at 21:00; Stop 02/17/18 at 16:21; Status DC Active Scripts Active Reported Buspirone Hcl 10 Mg Tablet 10 Mg PO TID Tablet (Pnv Cmb#95/Ferrous Fumarate/Fa) 1 Each Tablet 1 Tab PO DAILY Milk Of Magnesia (Magnesium Hydroxide) 2,400 Mg/10 Ml Oral.susp 2,400 Mg PO PRN QHS PRN Advanced Antacid Liquid (Mag Hydrox/Al Hydrox/Simeth) 355 Ml Oral.susp 15 Ml PO PRN AFTMEALHC PRN Humalog (Insulin Lispro) 100 Unit/1 Ml Insuln.pen 0-5 Unit SQ TIDWMEALS BG 70-150 = 0 units BG 151-200 = 2 units if eating/ 0 units if not eating BG 201-250 = 3 units if eating/ 0 units if not eating BG 251-300 = 4 units if eating/ 0 units if not eating BG 301-350 = 5 units if eating/ 0 units if not eating BG > 351 = call MD for orders Depakote Sprinkle (Divalproex Sodium) 125 Mg Cap.sprink 750 Mg PO BID Xanax (Alprazolam) 0.5 Mg Tablet 0.5 Mg PO PRN TID PRN Tramadol Hcl (Tramadol HCl) 50 Mg Tablet 50 Mg PO PRN Q4HRS PRN Zdrude-Vheyayze-Oviy 50-325-40 (Butalb/Acetaminophen/Caffeine) 1 Each Tablet 1 Tab PO PRN Q8HRS PRN Xanax (Alprazolam) 0.5 Mg Tablet 0.5 Mg PO QHS Biofreeze (Menthol) 118 Ml Gel..ml. 1 Jurgen TP PRN QID PRN Zofran (Ondansetron Hcl) 4 Mg Tablet 4 Mg PO PRN Q6HRS PRN Mobic (Meloxicam) 7.5 Mg Tablet 7.5 Mg PO DAILY Lasix (Furosemide) 40 Mg Tablet 40 Mg PO DAILY Fish Oil 1,000 Mg Softgel ([place]-3/Dha/Epa/Fish Oil) 1 Each Capsule 1 Cap PO DAILY Lyrica (Pregabalin) 50 Mg Capsule 50 Mg PO BID Duloxetine Hcl 60 Mg Capsule.dr 60 Mg PO DAILY Combivent Respimat Inhal (Ipratropium/Albuterol Sulfate) 4 Gm Aer.w.adap 2 Puff INH PRN Q4HRS PRN Fibercon (Calcium Polycarbophil) 625 Mg Tablet 625 Mg PO DAILY Probiotic (Lactobacillus Acidophilus) 1 Each Capsule 1 Tab PO DAILY Levemir (Insulin Detemir) 100 Unit/1 Ml Vial 40 Unit SQ HS Levemir (Insulin Detemir) 100 Unit/1 Ml Vial 50 Unit SQ DAILYWBKFT Magnesium Oxide 400 Mg Tablet 400 Mg PO TIDWMEALS Colace (Docusate Sodium) 100 Mg Capsule 100 Mg PO PRN DAILY PRN Risperidone 0.5 Mg Tablet 4 Mg PO HS give with 4 mg dose to make 4.5 mg dose Tylenol (Acetaminophen) 325 Mg Tablet 650 Mg PO PRN Q4HRS PRN Max Acetaminophen dose is 4000mg in 24 hours from all sources for adults Levothyroxine Sodium 75 Mcg Tablet 75 Mcg PO DAILY06 Administer on an empty stomach: 1 hour before or 2 hours after a meal Metformin Hcl 500 Mg Tablet 1,000 Mg PO BIDWMEALS Give with meals Potassium Chloride 10 Meq Tab.er.prt 10 Meq PO DAILY On Thursday and Thursday Atorvastatin Calcium 80 Mg Tablet 80 Mg PO QHS I have reviewed the current psychotropics carefully including drug interactions. Risk benefit ratio favors no change other than as noted in my dictated progress note. Diagnosis: Problems: (1) Suicidal ideation (2) Medical clearance for psychiatric admission (3) Suicidal ideation (4) Anxiety disorder (5) Suicidal ideations (6) Bipolar affective disorder, mixed (7) Borderline intellectual disability (8) Impulse control disorder KIT BUENO MD February 18, 2018 21:06
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
== END 2018-02-17 14:15 | disposition home or self-care (01) | DRG 885 ==
LOC: ER 19:41 → GEROPSY 02-03 00:37
PROVIDERS: ADMIT Psychiatry & Neurology Psychiatry; ATTEND Psychiatry & Neurology Psychiatry
DX: F31.60 Bipolar disorder, current episode mixed, unspecified (principal); E11.42 Type 2 diabetes mellitus with diabetic polyneuropathy; I50.9 Heart failure, unspecified; I11.0 Hypertensive heart disease with heart failure; R45.851 Suicidal ideations; G40.909 Epilepsy, unspecified, not intractable, without status epilepticus; F25.9 Schizoaffective disorder, unspecified; E03.9 Hypothyroidism, unspecified; E78.5 Hyperlipidemia, unspecified; K21.9 Gastro-esophageal reflux disease without esophagitis; I25.10 Atherosclerotic heart disease of native coronary artery without angina pectoris; E73.9 Lactose intolerance, unspecified; F09 Unspecified mental disorder due to known physiological condition; F41.9 Anxiety disorder, unspecified; F63.9 Impulse disorder, unspecified; R41.83 Borderline intellectual functioning; R45.850 Homicidal ideations; M19.90 Unspecified osteoarthritis, unspecified site; G89.29 Other chronic pain; G47.30 Sleep apnea, unspecified; F60.9 Personality disorder, unspecified; Z66 Do not resuscitate; Z79.4 Long term (current) use of insulin; Z79.899 Other long term (current) drug therapy; Z90.49 Acquired absence of other specified parts of digestive tract; Z90.710 Acquired absence of both cervix and uterus; Z88.5 Allergy status to narcotic agent; Z90.722 Acquired absence of ovaries, bilateral; Z90.79 Acquired absence of other genital organ(s)
CPT/HCPCS: 36415; 80053; 80061; 80164; 80185; 80307; 81001; 82306; 82607; 82947; 83036; 83540; 83550; 83735; 84436; 84443; 84480; 85025; 85027; 86593; 93005; 95816; J1815; G0479